=== PATIENT | male | born 1950 | race Caucasian/White ===

== ENCOUNTER 2017-10-20 19:12 | Inpatient (IN) | payer MEDICARE, OTHER ==
[~2017-10-20 19:12] MED LIST: ACTONEL PO; CALTTAB5 PO; LEVO.1 PO; PRIN10TA PO; ZITH250T PO
[2017-10-20 19:24] VITALS: BP 130/87; PULSE 98; RESP 16; TEMP 97.2; O2SAT 96
[2017-10-20 22:00] VITALS: BP 98/64; PULSE 156; RESP 23; O2SAT 97
[2017-10-20] MEDS ORDERED: SODIUM CHLOR 0.9% 1000 ML INJ 1,000 ML IV ONE (23:56)
[2017-10-21] VITALS (12 sets, daily range): BP systolic 83–131; BP diastolic 52–83; PULSE 112–154; RESP 16–28; TEMP 97.6–97.8; O2SAT 93–99
[2017-10-21] MEDS ORDERED: LABETALOL HCL 100 MG/20 ML VIAL IV PUSH ONE
[2017-10-21 00:25] LABS: AUTOMATED NEUTROPHIL # 11.8 TH/MM3 (1.8-7.7); BASOPHIL % 0.2 % (0.0-2.0); EOSINOPHIL % 0.2 % (0.0-4.0); HEMATOCRIT 41.5 % (39.0-51.0); HEMOGLOBIN 13.9 GM/DL (13.0-17.0); LYMPH % 7.5 % (9.0-44.0); MEAN CELL VOLUME 93.3 FL (80.0-100.0); MEAN CORPUSCULAR HEMOGLOBIN 31.3 PG (27.0-34.0); MEAN CORPUSCULAR HGB CONC 33.5 % (32.0-36.0); MONO % 5.5 % (0.0-8.0); MONOCYTE # 0.7 TH/MM3 (0-0.9); NEUT % 86.6 % (16.0-70.0); PLATELET COUNT 312 TH/MM3 (150-450); RED BLOOD COUNT 4.45 MIL/MM3 (4.50-5.90); RED CELL DISTRIBUTION WIDTH 15.6 % (11.6-17.2); WHITE BLOOD COUNT 13.6 TH/MM3 (4.0-11.0)
[2017-10-21 00:43] LABS: ALKALINE PHOSPHATASE 123 U/L (45-117); INTERNATIONAL NORMALIZED RATIO 1.4 RATIO; PROTHROMBIN TIME - PATIENT 14.5 SEC (9.8-11.6); TOTAL BILIRUBIN ADULT 1.3 MG/DL (0.2-1.0); TOTAL PROTEIN 7.5 GM/DL (6.4-8.2)
[2017-10-21 00:44] LABS: ALBUMIN 1.8 GM/DL (3.4-5.0); ALT (GPT) 12 U/L (12-78); AST (GOT) 58 U/L (15-37); BICARBONATE 26.9 MEQ/L (21.0-32.0); BLOOD UREA NITROGEN 11 MG/DL (7-18); CHLORIDE 95 MEQ/L (98-107); CREATININE 0.77 MG/DL (0.60-1.30); GLOMERULAR FILTRATION RATE 101 ML/MIN (>89); GLUCOSE,RANDOM 105 MG/DL (74-106); SODIUM (NA) 134 MEQ/L (136-145)
--- NOTE | 2017-10-21 01:17 | PD ---
HPI Chief Complaint: Back/ Neck Pain or Injury Time Seen by Provider: 23:56 Travel History International Travel<30 days: No Contact w/Intl Traveler<30days: No Traveled to known affect area: No History of Present Illness HPI 67-year-old male who lives alone brought in by his sister for evaluation. The patient's friends became concerned because they have not seen him for about 2 weeks. They called PD and he was found in his home. Patient complains of generalized weakness. Patient's sister suspects he has not been taking care of himself properly. His heart rate is noted to be 151 in triage and appears to be A. fib on EKG. He denies history of A. fib. He is not sure if he has had a fever. He has had a nonproductive cough. No chest pain or dyspnea. He does drink alcohol daily, but states he has not had any alcohol in the last 2 weeks. He has a history of thyroid cancer that was treated with thyroidectomy several years ago. No history of DVT or PE. PFSH Past Medical History Cancer: Yes (THYROID) Diabetes: No Glaucoma: No Hepatitis: No Hiatal Hernia: No Hypertension: Yes Thyroid Disease: Yes (THYROID CANCER) Past Surgical History Other Surgery: Yes (THYROIDECTOMY LAST WEEK) Social History Alcohol Use: Yes (BEER 6 PACK DAILY) Tobacco Use: Yes (1 07/18 PPD) Substance Use: No Allergies-Medications (Allergen,Severity, Reaction): Coded Allergies: No Known Allergies (Verified Adverse Reaction, Unknown, 10/20/17) Reported Meds & Prescriptions Reported Meds & Active Scripts Active Reported Synthroid (Levothyroxine Sodium) 100 Mcg Tab 100 Mcg PO DAILY Zithromax Z-John (Azithromycin) 250 Mg Tab 250 Mg PO DIRECTED 5 Days 500 MG (2 TABLETS) PO ON DAY 1, THEN 250 MG (1 TABLET) PO ON DAYS 2 TO 5. Caltrate 600 (Calcium Carbonate) Tab 1 Tab PO BID [Actonel] 150 Mg PO MONTHLY Prinivil (Lisinopril) 10 Mg Tab 10 Mg PO DAILY Review of Systems Except as stated in HPI: all other systems reviewed are Neg Physical Exam Narrative GENERAL: Well-developed, well-nourished, cachectic appearing, awake, alert, no apparent distress. SKIN: Focused skin assessment warm/dry. HEAD: Atraumatic. Normocephalic. EYES: Pupils equal and round. No scleral icterus. No injection or drainage. ENT: No nasal bleeding or discharge. Mucous membranes pink and moist. NECK: Trachea midline. No JVD. CARDIOVASCULAR: Tachycardic, rate 150s, irregularly irregular. RESPIRATORY: No accessory muscle use. Clear to auscultation. Breath sounds equal bilaterally. GASTROINTESTINAL: Abdomen soft, non-tender, nondistended. MUSCULOSKELETAL: No obvious deformities. No clubbing. No cyanosis. No edema. NEUROLOGICAL: Awake and alert. No obvious cranial nerve deficits. Motor grossly within normal limits. Normal speech. PSYCHIATRIC: Appropriate mood and affect; insight and judgment normal. Data Data Last Documented VS Vital Signs Date Time Temp Pulse Resp B/P (MAP) Pulse Ox O2 Delivery O2 Flow Rate FiO2 10/20/17 23:50 160 10/20/17 19:24 97.2 16 130/87 (101) 96 Room Air Orders Orders Sepsis Workup Initiated (10/20/17 ) Complete Blood Count With Diff (10/20/17 23:56) Comprehensive Metabolic Panel (10/20/17 23:56) Prothrombin Time / Inr (Pt) (10/20/17 23:56) Act Partial Throm Time (Ptt) (10/20/17 23:56) Lactic Acid Sepsis Protocol (10/20/17 23:56) Magnesium (Mg) (10/20/17 23:56) Lipase (10/20/17 23:56) Urinalysis - C+S If Indicated (10/20/17 23:56) Influenzae A/B Antigen (10/20/17 23:56) Blood Culture (10/20/17 23:56) Chest, Single Ap (10/20/17 23:56) Ecg Monitoring (10/20/17 23:56) Iv Access Insert/Monitor (10/20/17 23:56) Oximetry (10/20/17 23:56) Sodium Chlor 0.9% 1000 Ml Inj (Ns 1000 M (10/20/17 23:56) Creatine Kinase (Cpk) (10/20/17 23:56) Sodium Chlor 0.9% 1000 Ml Inj (Ns 1000 M (10/21/17 00:00) Labetalol Inj (Trandate Inj) (10/21/17 00:00) Ct Pulmonary Angiogram (10/21/17 ) Ct Abd/Pel W Iv Contrast(Rout) (10/21/17 ) Ceftriaxone Inj (Rocephin Inj) (10/21/17 01:45) Azithromycin Inj (Zithromax Inj) (10/21/17 01:45) Iohexol 350 Inj (Omnipaque 350 Inj) (10/21/17 03:15) Labs Laboratory Tests Test 10/20/17 23:50 White Blood Count 13.6 TH/MM3 Red Blood Count 4.45 MIL/MM3 Hemoglobin 13.9 GM/DL Hematocrit 41.5 % Mean Corpuscular Volume 93.3 FL Mean Corpuscular Hemoglobin 31.3 PG Mean Corpuscular Hemoglobin Concent 33.5 % Red Cell Distribution Width 15.6 % Platelet Count 312 TH/MM3 Mean Platelet Volume 7.0 FL Neutrophils (%) (Auto) 86.6 % Lymphocytes (%) (Auto) 7.5 % Monocytes (%) (Auto) 5.5 % Eosinophils (%) (Auto) 0.2 % Basophils (%) (Auto) 0.2 % Neutrophils # (Auto) 11.8 TH/MM3 Lymphocytes # (Auto) 1.0 TH/MM3 Monocytes # (Auto) 0.7 TH/MM3 Eosinophils # (Auto) 0.0 TH/MM3 Basophils # (Auto) 0.0 TH/MM3 CBC Comment DIFF FINAL Differential Comment Prothrombin Time 14.5 SEC Prothromb Time International Ratio 1.4 RATIO Activated Partial Thromboplast Time 35.0 SEC Blood Urea Nitrogen 11 MG/DL Creatinine 0.77 MG/DL Random Glucose 105 MG/DL Total Protein 7.5 GM/DL Albumin 1.8 GM/DL Calcium Level 9.0 MG/DL Magnesium Level 2.0 MG/DL Alkaline Phosphatase 123 U/L Aspartate Amino Transf (AST/SGOT) 58 U/L Alanine Aminotransferase (ALT/SGPT) 12 U/L Total Bilirubin 1.3 MG/DL Sodium Level 134 MEQ/L Potassium Level 3.4 MEQ/L Chloride Level 95 MEQ/L Carbon Dioxide Level 26.9 MEQ/L Anion Gap 12 MEQ/L Estimat Glomerular Filtration Rate 101 ML/MIN Lactic Acid Level 4.0 mmol/L Total Creatine Kinase 174 U/L Lipase 918 U/L MDM Medical Decision Making Medical Screen Exam Complete: Yes Emergency Medical Condition: Yes Differential Diagnosis Failure to thrive, sepsis, A. fib with RVR, metabolic abnormality, renal insufficiency, PE Narrative Course Vital signs reviewed. CBC is remarkable for WBC 13.6 with 86.6% neutrophils. CMP is essentially unremarkable. Lactic acid is 4.0. Lipase is 918. CT vomiting angiogram: CONCLUSION: 1. Large central right lung mass extending into the mediastinum. 2. Moderate-sized right pleural effusion. 3. Low density right lower lobe pulmonary consolidation indicating "drowned lung ". 4. 6 mm left lung nodule. 5. Lung mass extends into the subcarinal region. Enlarged right paratracheal lymph node. 6. No evidence of pulmonary embolus. CT abdomen pelvis: CONCLUSION: 1. Findings highly suspicious for metastatic malignancy in the abdomen involving the liver, pancreas, and adrenal glands. Liver masses appear minimal to CT-guided biopsy. 2. Small moderate free fluid in the pelvis. 3. Nonspecific heterogeneous appearance of the prostate with multiple areas of decreased enhancement. 4. Diffuse atherosclerotic disease with abdominal aortic aneurysm and aortoiliac endograft. Fem-fem arterial bypass graft. The fem-fem graft is not opacified. Left common iliac and external iliac arteries also do not opacify. Patient was made aware of all findings. He is resting comfortably. He was given IV Rocephin and IV azithromycin. He will be admitted for further treatment and evaluation. Case discussed with hospitalist Dr. Ba who will admit the patient to her service. Diagnosis Primary Impression: Metastatic disease Additional Impressions: Pleural effusion Generalized weakness Admitting Information Admitting Physician Requests: Admit Joseph Rolon MD Oct 21, 2017 01:17
--- NOTE | 2017-10-21 01:21 | RADRPT ---
EXAM DATE/TIME: 10/21/2017 00:18 [facility] COMPARISON: No previous studies available for comparison. INDICATIONS : Back pain. MEDICAL HISTORY : None. SURGICAL HISTORY : None. ENCOUNTER: Initial ACUITY: 1 day PAIN SCORE: 0/10 LOCATION: Bilateral chest FINDINGS: Single AP view of the chest. Moderate size right pleural effusion. Right lower lung atelectasis versu s consolidation. Left lung clear. Cardiac mediastinal silhouette within normal limits. No evidence of pneumothorax. Multiple old posterior left sided rib fractures. CONCLUSION: Moderate-sized right pleural effusion and right lower lung atelectasis versus consolidation. Efren Farnsworth MD on October 21, 2017 at 1:18 Board Certified Radiologist. This report was verified electronically.
[2017-10-21] MEDS ORDERED: cefTRIAXone INJ 1,000 MG in SODIUM CHLORIDE 0.9% INJ 100 ML IV ONE (01:45)
[2017-10-21] MEDS ORDERED: AZITHROMYCIN INJ 500 MG in SODIUM CHLOR 0.9% 250 ML INJ 250 ML IV ONE (01:45)
[2017-10-21] MEDS ORDERED: IOHEXOL 350 MG/ML 10 ML VIAL (for RAD DIAG) IVCONTRAST ONE (03:15)
--- NOTE | 2017-10-21 03:33 | RADRPT ---
EXAM DATE/TIME: 10/21/2017 02:52 [facility] COMPARISON: No previous studies available for comparison. INDICATIONS : Back pain. IV CONTRAST: 100 cc Omnipaque 350 (iohexol) IV ; Cumulative dose for multiple exams. RADIATION DOSE: 8.30 CTDIvol (mGy) MEDICAL HISTORY : Carcinoma, thyroid. SURGICAL HISTORY : None. ENCOUNTER: Initial ACUITY: 1 day PAIN SCALE: 5/10 LOCATION: Parasp[facility] TECHNIQUE: Volumetric scanning of the chest was performed using a pulmonary embolism protocol MIP images were re constructed. Using automated exposure control and adjustment of the mA and/or kV according to patien t size, radiation dose was kept as low as reasonably achievable to obtain optimal diagnostic quality images. DICOM format image data is available electronically for review and comparison. Follow-up recommendations for detected pulmonary nodules are based at a minimum on nodule size and pa tient risk factors according to Fleischner Society Guidelines. FINDINGS: PULMONARY ARTERIES: No filling defects are seen in the pulmonary arteries through the segmental level. LUNGS: Large central/right hilar lung mass measuring approximately 9.4 x 6.3 cm. There is cut off of the rig ht lower lobe bronchus. Low-density right lower lobe pulmonary consolidation or "drowned lung". The m ass abuts the right border of the left atrium and abuts the esophagus. It also abuts the anterior mar gin of the descending thoracic aorta. 6 mm nodular density in the left upper lobe on image #45. PLEURAE: Moderate-sized right pleural effusion. MEDIASTINUM: Right hilar mass extends into the subcarinal region. 2.6 cm right paratracheal lymph node. 2.1 cm pre vascular lymph node with central calcifications. Aortic diameter are within normal limits. MUSCULOSKELETAL: Multiple old left-sided rib fractures. MISCELLANEOUS: Nonspecific heterogeneity of the visualized portion of the left lobe of the liver. Splenic calcified granulomas. CONCLUSION: 1. Large central right lung mass extending into the mediastinum. 2. Moderate-sized right pleural effusion. 3. Low density right lower lobe pulmonary consolidation indicating "drowned lung". 4. 6 mm left lung nodule. 5. Lung mass extends into the subcarinal region. Enlarged right paratracheal lymph node. 6. No evidence of pulmonary embolus. Efren Farnsworth MD on October 21, 2017 at 3:24 Board Certified Radiologist. This report was verified electronically.
--- NOTE | 2017-10-21 03:55 | RADRPT ---
EXAM DATE/TIME: 10/21/2017 02:52 [facility] COMPARISON: No previous studies available for comparison. INDICATIONS : Back pain. IV CONTRAST: 100 cc Omnipaque 350 (iohexol) IV ; Cumulative dose for multiple exams. ORAL CONTRAST: No oral contrast ingested. RADIATION DOSE: 10.69 CTDIvol (mGy) MEDICAL HISTORY : Carcinoma, thyroid. SURGICAL HISTORY : None. ENCOUNTER: Initial ACUITY: 1 day PAIN SCALE: 5/10 LOCATION: Paraspinal TECHNIQUE: Volumetric scanning of the abdomen and pelvis was performed. Using automated exposure control and ad justment of the mA and/or kV according to patient size, radiation dose was kept as low as reasonably achievable to obtain optimal diagnostic quality images. DICOM format image data is available electro nically for review and comparison. FINDINGS: LOWER LUNGS: Chest abnormalities fully described on chest CT report. LIVER: Multiple peripheral enhancing solid mass is identified in the liver the largest is in the lateral seg ment left lobe measuring 4.8 cm. Findings are highly suspicious for metastatic neoplasm. SPLEEN: Multiple calcified granulomas. PANCREAS: Multiple scattered low density masses with peripheral enhancement in the pancreas. Similar appearance to the liver masses. Largest is seen in the body measuring 3.7 cm. Findings are also suspicious for metastatic neoplasm. KIDNEYS: 2 cm cyst in the lower pole of the right kidney. Kidneys otherwise within normal limits. ADRENAL GLANDS: Bilateral low density adrenal mass is measuring 3.5 cm on the left and 4 cm on the right. Suspicious for metastatic malignancy. VASCULAR: Distal abdominal aortic aneurysm. Aorto iliac endograft is in place left common iliac and external il iac arteries do not opacify. Profundofemoral artery on the left fills via collaterals. Diffuse athero sclerotic disease. Fem-fem arterial bypass graft noted. It does not opacify. BOWEL/MESENTERY: Multiple colonic diverticula. No evidence of bowel dilatation. Small amount of free fluid in the pelv is. Appendix not identified. ABDOMINAL WALL: Within normal limits. RETROPERITONEUM: There is no lymphadenopathy. BLADDER: No wall thickening or mass. REPRODUCTIVE: Heterogeneous prostate with large areas of decreased enhancement. INGUINAL: There is no lymphadenopathy or hernia. MUSCULOSKELETAL: Within normal limits for patient age. CONCLUSION: 1. Findings highly suspicious for metastatic malignancy in the abdomen involving the liver, pancreas, and adrenal glands. Liver masses appear minimal to CT-guided biopsy. 2. Small moderate free fluid in the pelvis. 3. Nonspecific heterogeneous appearance of the prostate with multiple areas of decreased enhancement. 4. Diffuse atherosclerotic disease with abdominal aortic aneurysm and aortoiliac endograft. Fem-fem a rterial bypass graft. The fem-fem graft is not opacified. Left common iliac and external iliac arteri es also do not opacify. Efren Farnsworth MD on October 21, 2017 at 3:45 Board Certified Radiologist. This report was verified electronically.
[2017-10-21] MEDS ORDERED: ONDANSETRON HCL 4 MG/2 ML VIAL IVP PRN (04:15)
[2017-10-21] MEDS ORDERED: MAGNESIUM HYDROXIDE SUSP 30 ML CUP PO PRN (04:15)
[2017-10-21] MEDS ORDERED: SODIUM CHLORIDE 0.9% FLUSH 10 ML FLUSH IV FLUSH PRN (04:15)
[2017-10-21] MEDS ORDERED: BISACODYL 10 MG SUPP RECTAL PRN (04:15)
[2017-10-21] MEDS ORDERED: RESP: ALBUTEROL 2.5 MG/IPRATROPIUM 0.5 MG NEB (PRN) NEB (04:15)
[2017-10-21] MEDS ORDERED: ACETAMINOPHEN 325 MG TAB PO PRN (04:15)
[2017-10-21] MEDS ORDERED: SENNOSIDES 8.6 MG TAB PO PRN (04:15)
[2017-10-21] MEDS ORDERED: LACTULOSE SYRUP 20 GM/30 ML CUP PO PRN (04:15)
[2017-10-21] MEDS ORDERED: MORPHINE SULFATE 2 MG/ML SYRINGE IV PUSH PRN (04:15)
[2017-10-21] MEDS ORDERED: LORazepam 1 MG TAB PO PRN (04:45)
[2017-10-21] MEDS ORDERED: FLUMAZENIL 0.5 MG/5 ML VIAL IV PUSH PRN (04:45)
[2017-10-21] MEDS ORDERED: LORazepam 2 MG/ML VIAL IV PUSH PRN ×4 (04:45)
[2017-10-21] MEDS ORDERED: LORazepam 2 MG TAB PO PRN (04:45)
[2017-10-21] MEDS ORDERED: HALOPERIDOL LACTATE 5 MG/ML AMP IM PRN (04:45)
--- NOTE | 2017-10-21 04:56 | HHI.HP ---
HPI Service [facility] Primary Care Physician Charly Vick, DO Admission Diagnosis Metastatic disease, pleural effusion, generalized weakness Diagnoses: (1) Lung mass Diagnosis: Principal (2) Pleural effusion Diagnosis: Principal (3) PNA (pneumonia) Diagnosis: Principal (4) Lactic acidosis Diagnosis: Principal Travel History International Travel<30 Days: No Contact w/Intl Traveler <30 Da: No Traveled to Known Affected Are: No History of Present Illness This is a 67-year-old male with a PMH of Thyroid CA, Alcohol Abuse and Tobacco Abuse who was brought to the ER by EMS for weakness. Per patient, he's had difficulty "getting around" over the last 1-2 wks and states his friends got worried and called 911. Denies fever, chills, chest pain or SOB. On arrival, BP 126/85, HR 96, O2 sat 96% on RA, Temp 100.0. WBC 13.6. Chemistry essentially unremarkable. Lactic Acid 4.0. Lipase 918. INR 1.4. CXR moderate size right pleural effusion and right lower lung atelectasis versus consolidation. CTA Pulm with large central right lung mass extending into the mediastinum, moderate right sided pleural effusion, low density right lower lobe pulmonary consolidation, 6 mm left lung nodule, enlarged right paratracheal lymph nodes, no PE. CT Abdomen/Pelvis with findings highly suspicious for metastatic malignancy in the abdomen involving the liver, pancreas and adrenal glands. Pt made aware of findings, denies known h/o cancer besides Thyroid. S/p Rocephin/Zithro in ER. Review of Systems Except as stated in HPI: all other systems reviewed are Neg ROS: 14 point review of systems otherwise negative. Past Family Social History Past Medical History PMH: Thyroid CA, Alcohol Abuse and Tobacco Abuse Past Surgical History PAST SURGICAL HISTORY: Thyroidectomy Allergies: Coded Allergies: No Known Allergies (Verified Allergy, Unknown, 10/21/17) Family History PAST FAMILY HISTORY: Reviewed. No h/o DM or CAD Social History PAST SOCIAL HISTORY: Drinks 6 beers per day. Smokes 1.5 ppd. Negative for drugs. Physical Exam Vital Signs Vital Signs Date Time Temp Pulse Resp B/P (MAP) Pulse Ox O2 Delivery O2 Flow Rate FiO2 10/20/17 23:50 160 10/20/17 19:24 97.2 98 16 130/87 (101) 96 Room Air Physical Exam PE: GENERAL: Middle-aged, thin, chronically ill appearing male in no acute distress. Looks significantly older than stated age. HEENT: PERRLA, EOMI. No scleral icterus or conjunctival pallor. No lid lag or facial droop. CARDIOVASCULAR: Regular rate and rhythm. No obvious murmurs to auscultation. No chest tenderness to palpation. RESPIRATORY: No obvious rhonchi or wheezing. Clear to auscultation. Breath sounds diminished on right. GASTROINTESTINAL: Abdomen soft, non-tender, nondistended. BS normal. MUSCULOSKELETAL: Extremities without clubbing, cyanosis, or edema. No obvious deformities. NEUROLOGICAL: Awake, alert and oriented x4. No focal neurologic deficits. Moving both upper and lower extremities spontaneously. Laboratory Laboratory Tests Test 10/20/17 23:50 White Blood Count 13.6 Red Blood Count 4.45 Hemoglobin 13.9 Hematocrit 41.5 Mean Corpuscular Volume 93.3 Mean Corpuscular Hemoglobin 31.3 Mean Corpuscular Hemoglobin Concent 33.5 Red Cell Distribution Width 15.6 Platelet Count 312 Mean Platelet Volume 7.0 Neutrophils (%) (Auto) 86.6 Lymphocytes (%) (Auto) 7.5 Monocytes (%) (Auto) 5.5 Eosinophils (%) (Auto) 0.2 Basophils (%) (Auto) 0.2 Neutrophils # (Auto) 11.8 Lymphocytes # (Auto) 1.0 Monocytes # (Auto) 0.7 Eosinophils # (Auto) 0.0 Basophils # (Auto) 0.0 CBC Comment DIFF FINAL Differential Comment Prothrombin Time 14.5 Prothromb Time International Ratio 1.4 Activated Partial Thromboplast Time 35.0 Blood Urea Nitrogen 11 Creatinine 0.77 Random Glucose 105 Total Protein 7.5 Albumin 1.8 Calcium Level 9.0 Magnesium Level 2.0 Alkaline Phosphatase 123 Aspartate Amino Transf (AST/SGOT) 58 Alanine Aminotransferase (ALT/SGPT) 12 Total Bilirubin 1.3 Sodium Level 134 Potassium Level 3.4 Chloride Level 95 Carbon Dioxide Level 26.9 Anion Gap 12 Estimat Glomerular Filtration Rate 101 Lactic Acid Level 4.0 Total Creatine Kinase 174 Lipase 918 Date/Time Source Procedure Growth Status 10/20/17 23:40 Blood Peripheral Aerobic Blood Culture Pending Received 10/20/17 23:40 Blood Peripheral Anaerobic Blood Culture Pending Received 10/21/17 00:05 Nasal Washing Influenza Types A,B Antigen (SUE) - Final NEGATIVE FOR FLU A AND B ANTIGEN.... Complete Result Diagram: 10/20/17 2350 10/20/17 2350 Caprini VTE Risk Assessment Caprini VTE Risk Assessment: No/Low Risk (score <= 1) Caprini Risk Assessment Model Point Value = 1 Point Value = 2 Point Value = 3 Point Value = 5 Age 41-60 Minor surgery BMI > 25 kg/m2 Swollen legs Varicose veins or History of unexplained or recurrent spontaneous Oral contraceptives or hormone replacement Sepsis (< 1 month) Serious lung disease, including pneumonia (< 1 month) Abnormal pulmonary function Acute myocardial infarction Congestive heart failure (< 1 month) History of inflammatory bowel disease Medical patient at bed rest Age 61-74 Arthroscopic surgery Major open surgery (> 45 min) Laparoscopic surgery (> 45 min) Malignancy Confined to bed (> 72 hours) Immobilizing plaster cast Central venous access Age >= 75 History of VTE Family history of VTE Factor V Leiden Prothrombin [id number] Lupus anticoagulant Anticardiolipin antibodies Elevated serum homocysteine Heparin-induced thrombocytopenia Other congenital or acquired thrombophilia Stroke (< 1 month) Elective arthroplasty Hip, pelvis, or leg fracture Acute spinal cord injury (< 1 month) Prophylaxis Regimen Total Risk Factor Score Risk Level Prophylaxis Regimen 0-1 Low Early ambulation 2 Moderate Order ONE of the following: *Sequential Compression Device (SCD) *Heparin 5000 units SQ BID 3-4 Higher Order ONE of the following medications: *Heparin 5000 units SQ TID *Enoxaparin/Lovenox 40 mg SQ daily (WT < 150 kg, CrCl > 30 mL/min) *Enoxaparin/Lovenox 30 mg SQ daily (WT < 150 kg, CrCl > 10-29 mL/min) *Enoxaparin/Lovenox 30 mg SQ BID (WT < 150 kg, CrCl > 30 mL/min) AND/OR *Sequential Compression Device (SCD) 5 or more Highest Order ONE of the following medications: *Heparin 5000 units SQ TID (Preferred with Epidurals) *Enoxaparin/Lovenox 40 mg SQ daily (WT < 150 kg, CrCl > 30 mL/min) *Enoxaparin/Lovenox 30 mg SQ daily (WT < 150 kg, CrCl > 10-29 mL/min) *Enoxaparin/Lovenox 30 mg SQ BID (WT < 150 kg, CrCl > 30 mL/min) AND *Sequential Compression Device (SCD) Assessment and Plan Problem List: (1) Lung mass ICD Code: R91.8 - Other nonspecific abnormal finding of lung field (2) PNA (pneumonia) ICD Code: J18.9 - Pneumonia, unspecified organism (3) Pleural effusion ICD Code: J90 - Pleural effusion, not elsewhere classified (4) Lactic acidosis ICD Code: E87.2 - Acidosis Assessment and Plan A/P: 1. Lung Mass: CTA Pulm w/ large central right lung mass extending to mediastinum w/ associated lymphadenopathy, images reviewed by me. CT Abd/ Pelvis w/ extensive metastatic disease to liver, pancreas and adrenal glands, images reviewed by me. +tobacco abuse. Consult Oncology for further evaluation. Will obtain MRI Brain to eval for possible [employer] mets. Consult Pulmonology for eval/bronchoscopy. Pt made aware of findings, he understands and wishes to proceed w/ further treatment/intervention. 2. Pleural Effusion: moderate right-sided pleural effusion on CTA Pulm, consult Pulmonology/IR for thoracentesis. O2 sat normal, will continue to monitor. 3. PNA: CXR w/ RLL consolidation, also seen on CTA Pulm, images reviewed by me. S/p Rocephin/Zithro in ER, will continue w/ IV Abx, DuoNeb prn. 4. Lactic Acidosis: Lactate 4.0, likely secondary to infection/early sepsis. Follow up cultures, IVF for hydration, repeat Lactic Acid 5. Tobacco Abuse: Pt counselled. Ativan/NicoDerm prn if needed. 6. DVT Prophylaxis: SCD/Teds. 7. Social work for d/c planning as needed. 8. Case discussed w/ ER physician at length, labs/records/imaging reviewed by me Physician Certification 2 Midnight Certification Type: Admission for Inpatient Services Order for Inpatient Services The services are ordered in accordance with Medicare regulations or non- Medicare payer requirements, as applicable. In the case of services not specified as inpatient-only, they are appropriately provided as inpatient services in accordance with the 2-midnight benchmark. Estimated LOS (days): 2 days is the estimated time the patient will need to remain in the hospital, assuming treatment plan goals are met and no additional complications. Post-Hospital Plan: Not yet determined Latanya Ba MD Oct 21, 2017 04:56
[2017-10-21] MEDS: SODIUM CHLOR 0.9% 1000 ML INJ 1,000 ML IV SCH ×3 (07:25→23:55)
[2017-10-21] MEDS ORDERED: GADODIAMIDE PF 287 MG/ML 5 ML VIAL (for RAD MRI) IVCONTRAST ONE (08:48)
[2017-10-21] MEDS: SODIUM CHLORIDE 0.9% FLUSH 10 ML FLUSH IV FLUSH SCH ×2 (09:00→21:00)
--- NOTE | 2017-10-21 09:19 | RADRPT ---
EXAM DATE/TIME: 10/21/2017 08:39 [place] COMPARISON: No previous studies available for comparison. INDICATIONS : Mass. CONTRAST: 15 cc Omniscan (gadodiamide) IV MEDICAL HISTORY : Hypertension. Chronic obstructive pulmonary disease. Carcinoma, thyroid. SURGICAL HISTORY : Thyroidectomy. Abdominal aortic aneurysm repair. ENCOUNTER: Initial ACUITY: 1 day PAIN SCORE: 0/10 LOCATION: cranial TECHNIQUE: Multiplanar, multisequence MRI of the brain was performed both prior to and following the administrat ion of paramagnetic contrast. FINDINGS: CEREBRUM: There are multiple well-circumscribed T2 bright rim enhancing lesions identified within the white mat ter of the supratentorial brain. These are seen within the left and right temporal lobes, the bilater al parietal-occipital region, left external capsule left corpus callosum in the right frontal lobe. T he majority of these lesions demonstrate a thin rim of decreased T2 signal. The capsules demonstrate mildly restricted diffusion and uniform thin enhancement. There is significant adjacent white matter edema identified adjacent to these lesions and most significantly within the left temporal lobe. The largest lesion within the left temporal lobe measures 3.1 cm. There is effacement of the sulci second mikhail to the white matter edema identified within the left temporal lobe. The ventricles maintain estelle l shape without evidence of effacement. No evidence of midline shift. POSTERIOR FOSSA: The cerebellum and brainstem are intact. The 4th ventricle is midline. The cerebellopontine angle is unremarkable. The cerebellar tonsils are normal in position. EXTRACRANIAL: The visualized portions of the orbits and paranasal sinuses are unremarkable. CONCLUSION: Multiple thin-walled rim enhancing cystic lesions identified within the white matter as described abo ve. Given the appearance of these lesions this favors infectious process such as multiple cerebral ab scesses, neurocysticercosis or lymphoma versus toxoplasma in the setting of immunocompromise patient. Additional differential diagnosis includes multiple glioblastomas or areas of tumefactive demyelinat ion.. Ely Golden MD on October 21, 2017 at 9:03 Board Certified Radiologist. This report was verified electronically.
[2017-10-21] MEDS: MULTIVITAMINS/MINERALS THERAPEUTIC TAB PO SCH (09:21)
[2017-10-21] MEDS: THIAMINE HCL 100 MG TAB PO SCH (09:21)
[2017-10-21] MEDS: DOCUSATE SODIUM 50 MG/SENNA 8.6 MG TAB PO SCH ×2 (09:21→21:00)
[2017-10-21] MEDS: FOLIC ACID 1 MG TAB PO SCH (09:22)
[2017-10-21 09:58] LABS: BILIRUBIN, URINE NEG (NEG); BLOOD, URINE NEG (NEG); GLUCOSE,URINE NEG (NEG); KETONE, URINE 10 mg/dL (NEG); MUCUS URINE FEW /lpf (OCC); NITRITE,URINE NEG (NEG); PH, URINE 6.5 (5.0-8.5); URINE COLOR YELLOW (YELLW/STRAW); URINE LEUKOCYTE ESTERASE NEG (NEG)
--- NOTE | 2017-10-21 13:26 | MB ---
cc: Tyler Daigle MD DATE: 10/21/2017 HISTORY OF PRESENT ILLNESS: Mr. Blankenship is a 67-year-old white male who was brought in by EMS after they were called by friends who were worried about his weakness and a gradual decline over the last few weeks. The patient smokes heavily and apparently drinks up to 6 beers a day. Lives alone, was years ago. On presentation, he was noted to be cachectic, weak, somewhat short of breath, although saturations are reasonable, even on room air and a number of studies were initiated. His white count was 13,000. His hemoglobin was 13. BUN and creatinine were normal. Sodium was slightly low at 134 and his liver functions were elevated, possibly due to underlying liver disease. Albumin also low at 1.8. Lipase was 918. The patient had a chest x-ray which suggested a right pleural effusion and a right perihilar consolidation, so a CT scan was done which reveals a large central lung mass extending into the mediastinum with a right pleural effusion and a 6 mm left lower lung nodule. There is also subcarinal and paratracheal adenopathy. Certainly, highly suspicious for malignancy. Abdominal CT was also done, which revealed signs consistent with metastatic disease involving the liver, pancreas and adrenal glands. Liver masses are amenable to CT guided biopsy. There is also free fluid in the pelvis. Also, has extensive atherosclerotic disease noted with an aortic aneurysm and an endograft noted. The patient is an extremely poor historian, could not recall who his doctors are and I suspect he has been receiving regular medical care. I do have a record from 2008, at which time he developed and presented with medullary carcinoma. That was managed surgically. Whether there has been any recurrence of that up to this point, I do not know, and the patient cannot tell me. ALLERGIES: NO ALLERGIES ARE RECORDED. PAST MEDICAL HISTORY: Prior history, at least dating back to the 2008 note, hypertension, osteoporosis and the medullary carcinoma. FAMILY HISTORY: Recorded there. Father of Hodgkin disease. Mother with hypertension and some type of thyroid disease. He does have 4 siblings and he says he expects one of his sisters who lives locally to come in later. CURRENT MEDICATIONS: Reviewed in the EMR. MEDICATIONS AT HOME: Apparently, a thyroid replacement and Prinivil, whether he was taking that actively or not. SOCIAL HISTORY: Lives alone, smokes heavily and drinks beer excessively. PHYSICAL EXAMINATION: GENERAL: This is a chronically ill, weak-appearing gentleman who seems a little confused, although pleasant, tries to respond to questions, but memory for specifics is very poor. VITAL SIGNS: His pulse is 110. His blood pressure is 100/60. O2 saturation on 2 liters is 97%. HEENT: Sclerae pale, anicteric. Mucous membranes are dry. NECK: Veins are flat. CHEST: Some very minimal scattered congestion, no wheezing. HEART: Irregular rhythm. No harsh murmur. ABDOMEN: Soft but fullness in the right upper quadrant. No rebound or pain. EXTREMITIES: No peripheral edema or cyanosis. DIAGNOSTIC STUDIES: Various studies are reviewed including those noted above. He also had an MRI of his brain, which is abnormal, revealing multiple cystic lesions. DISCUSSION: Mr. Blankenship presents with what appears to be extensive metastatic malignancy, possibly of pulmonary origin in light of his prior smoking history and the CT of his chest. Obviously, a definitive diagnosis needs to be established and pleural effusion could be drained. Liver biopsy would be probably the next step and although lung biopsy would certainly be a reasonable alternative, I would suggest pursuing that only if the fluid and liver biopsies were not definitive. Oncology has been consulted also to see whether or not this might be related to the previous thyroid cancer. In light of the heavy smoking history, I will place the patient on aerosol therapy. Other than that, further diagnostic and/or therapeutic intervention will depend on the results of these initial diagnostic studies. MD UNIQUE Gil/NEDA , 12:44 PM , 01:24 PM
--- NOTE | 2017-10-21 15:26 | MB ---
cc: Armida Sims MD,Latanya CAM DATE: 10/21/2017 REFERRING PHYSICIAN: Dr. Latanya Ba. CHIEF COMPLAINT: Dr. Ba requested consultation for Mr. Blankenship with a suspected malignancy and new lung mass. HISTORY OF PRESENT ILLNESS: Mr. Blankenship is a 67-year-old man well known patient to my partner, Dr. Efrem Odell from a consultation back on 11/25/2008. Mr. Blankenship is originally from [facility]. He is with no children. He reports his sister lives down the block. He does not remember sister's number present. Her name is Bharati Blankenship. He names her as his healthcare surrogate. Mr. Blankenship has a history of medullary thyroid cancer. He presented with a palpable nodule in the left thyroid. He underwent 2 procedures, the first surgical procedure 09/03/[address] Steen. A 2.5 cm medullary carcinoma of the thyroid with lymphovascular invasion was noted. He underwent a second surgery on 11/05/2008 with removal of the right side of the thyroid, which revealed only chronic inflammation. Right neck dissection was performed. A total of 2 lymph nodes were removed and were negative. He had a second surgery on 11/06/2008. He had resection of the right thyroid and a left neck dissection. 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 The size of a metastasis was 2.2 cm. Additional heidi tissue in the left neck was 3 lymph nodes that were negative. The right neck excision shows 0/2 lymph node that were negative. In summary, he had a pathologic T2 N1 M0 medullary carcinoma of the thyroid definitive surgery by 10/2008. He had elevated calcitonin and CEA, which is concerning. Mr. Blankenship is unable to provide much history. He reports that he was doing well until about a week prior. He started to get weak. Denies any specific symptom. He was very tired at the time of the consultation. There was a report of being found down. He reports that he was in his bed when Evac was called by his neighbor. He denies any fevers, chills or night sweats. He has a nonproductive cough. He does not complain of anything specifically. The rest of his review of systems is negative. He is unable to comment on his weight or appetite. PAST MEDICAL HISTORY: Medullary thyroid cancer. PAST SURGICAL HISTORY: Thyroid surgery and neck dissection. FAMILY HISTORY: Father of some cancer, is not sure of the details, but age 62. Mother in her 80s. SOCIAL HISTORY: He drinks a 6 pack daily. He quit smoking 2 weeks ago. He smoked a pack and a half per day. ALLERGIES: NO KNOWN DRUG ALLERGIES. MEDICATIONS: From home include: 1. Synthroid. 2. Zithromax. 3. Caltrate. 4. Actonel. 5. Prinivil. PHYSICAL EXAMINATION: VITAL SIGNS: Temperature 97.2, heart rate 116, respiratory rate 20, blood pressure 109/74, saturation 97% on 2 liter nasal cannula. GENERAL: Mr. Blankenship is a cachectic, elderly man who looks older than his stated age. He looks tired and worn. HEENT: His pupils are round, reactive to light and accommodation. Oropharynx is dry. He is unshaven. NECK: Supple. LUNGS: Clear. CARDIOVASCULAR: Reveals tachycardia. ABDOMEN: Flat, benign. EXTREMITIES: No edema. He moves all 4 extremities. He has clubbing of fingers of both hands. LABORATORY DATA: Significant for a white blood cell count of 13.6; hemoglobin 13.9; platelet count of 312,000. Lipase is elevated. Albumin is decreased at 1.8. Lactic acid is 3.1. Sodium 134. Potassium 3.4 ASSESSMENT AND PLAN: Mr. Blankenship is a 67-year-old man with a history of medullary thyroid cancer that was resected in 2008. He was seen by Dr. Odell but has had no followup. He has high risk of recurrence in light of the elevated calcitonin and CEA. He presents with generalized weakness coming on over a short period of time. He was found in bed and comes in with evidence of dehydration. He has generalized weakness. His lipase is elevated. We will check a TSH. He is not clear when he was in bed if he was taking his thyroid medication. We need a diagnostic evaluation. He had a CT angiogram that reveals a large right lung mass extending into the mediastinum. There is moderate sized right-sided pleural effusion and low density right lower lobe pulmonary consolidation. There is a 6 mm left lung nodule. The lung mass extends into the subcarinal region. There is enlarged right paratracheal lymph node and no evidence of pulmonary embolism. His brain MRI shows multiple thin walled rim enhancing cystic lesions. This appearance could be infectious, multiple cerebral abscess, neurocysticercosis or other. In light of the lung lesion, I am more inclined to suspect that this is metastatic disease. A CT of the abdomen shows a highly suspicious metastatic malignancy in the abdomen involving the liver, pancreas, and adrenal gland. I discussed with Mr. Blankenship about the above findings. He appears to have widely metastatic disease including HEEL SPRAYER FIRST lesion. He is disinterested and too tired to talk. He is able to report that he wants his sister to be his healthcare surrogate but has no way of contacting her now. junior brand manager will be consulted to assist in this matter. It is important that Mr. Blankenship establish a healthcare surrogate given his performance status at present is widely metastatic disease and the HEEL SPRAYER FIRST lesions. He agrees that he would benefit from having a sister along to help him make decisions. His performance status is quite poor. We will proceed with a thoracentesis to obtain a diagnosis. This is suspected to be a second primary rather than metastatic disease from his medullary thyroid cancer. He is too weak to consider systemic treatments unless a targeted agent could be offered. We will proceed with diagnostic thoracentesis and review of cytology, cell block, and see if we can check PD-L1 testing on the results. Mr. Díaz questions were answered to his satisfaction. He has no additional questions at present. MD MAGALY Aguilar/NEDA , 02:42 PM , 03:25 PM
--- NOTE | 2017-10-21 17:20 | EKG ---
Date Performed: 10/20/2017 Time Performed: 23:43:45 PTAGE: 67 years EKG: ATRIAL FIBRILLATION WITH RAPID VENTRICULAR RESPONSE WITH ONE VENTRICULAR ECTOPIC BEAT POOR INITIAL ANTERIOR FORCES V1 AND V2 NONSPECIFIC ST-T CHANGE ABNORMAL ECG PREVIOUS TRACING : 11/05/2008 08.16 DOCTOR: Efrem Cote Interpretating Date/Time 10/21/2017 17:20:01
[2017-10-21] MEDS: RESP: ALBUTEROL 2.5 MG/IPRATROPIUM 0.5 MG NEB (SCH) INH (20:00)
[2017-10-21] MEDS ORDERED: SODIUM CHLOR 0.9% 1000 ML INJ 1,000 ML IV ONE ×2 (20:30)
[2017-10-22] VITALS (12 sets, daily range): BP systolic 103–113; BP diastolic 66–78; PULSE 71–121; RESP 16–20; TEMP 97.3–98.8; O2SAT 91–100
[2017-10-22] MEDS: POTASSIUM CHLOR 20 MEQ PREMIX 100 ML IV SCH ×5 (01:45→23:42)
[2017-10-22 06:08] LABS: AUTOMATED NEUTROPHIL # 7.1 TH/MM3 (1.8-7.7); BASOPHIL % 0.2 % (0.0-2.0); EOSINOPHIL # 0.1 TH/MM3 (0-0.4); EOSINOPHIL % 0.9 % (0.0-4.0); HEMATOCRIT 32.4 % (39.0-51.0); HEMOGLOBIN 10.9 GM/DL (13.0-17.0); LYMPH % 13.6 % (9.0-44.0); LYMPHOCYTE # 1.2 TH/MM3 (1.0-4.8); MEAN CELL VOLUME 93.3 FL (80.0-100.0); MEAN CORPUSCULAR HEMOGLOBIN 31.4 PG (27.0-34.0); MEAN CORPUSCULAR HGB CONC 33.7 % (32.0-36.0); MONOCYTE # 0.6 TH/MM3 (0-0.9); NEUT % 78.3 % (16.0-70.0); PLATELET COUNT 250 TH/MM3 (150-450); RED BLOOD COUNT 3.48 MIL/MM3 (4.50-5.90); RED CELL DISTRIBUTION WIDTH 15.6 % (11.6-17.2); WHITE BLOOD COUNT 9.1 TH/MM3 (4.0-11.0)
[2017-10-22] MEDS: cefTRIAXone INJ 1,000 MG in SODIUM CHLORIDE 0.9% INJ 100 ML IV SCH (06:34)
[2017-10-22 06:48] LABS: ALBUMIN 1.3 GM/DL (3.4-5.0); ALKALINE PHOSPHATASE 96 U/L (45-117); ALT (GPT) 14 U/L (12-78); AST (GOT) 45 U/L (15-37); BICARBONATE 26.8 MEQ/L (21.0-32.0); BLOOD UREA NITROGEN 8 MG/DL (7-18); CALCIUM 7.8 MG/DL (8.5-10.1); CHLORIDE 105 MEQ/L (98-107); CREATININE 0.46 MG/DL (0.60-1.30); GLOMERULAR FILTRATION RATE 184 ML/MIN (>89); GLUCOSE,RANDOM 88 MG/DL (74-106); SODIUM (NA) 141 MEQ/L (136-145); TOTAL BILIRUBIN ADULT 0.7 MG/DL (0.2-1.0); TOTAL PROTEIN 5.3 GM/DL (6.4-8.2)
[2017-10-22] MEDS: AZITHROMYCIN INJ 500 MG in SODIUM CHLOR 0.9% 250 ML INJ 250 ML IV SCH (07:14)
[2017-10-22] MEDS: RESP: ALBUTEROL 2.5 MG/IPRATROPIUM 0.5 MG NEB (SCH) INH ×2 (07:39→21:17)
[2017-10-22] MEDS: MULTIVITAMINS/MINERALS THERAPEUTIC TAB PO SCH (09:06)
[2017-10-22] MEDS: DOCUSATE SODIUM 50 MG/SENNA 8.6 MG TAB PO SCH ×2 (09:06→21:13)
[2017-10-22] MEDS: FOLIC ACID 1 MG TAB PO SCH (09:06)
[2017-10-22] MEDS: THIAMINE HCL 100 MG TAB PO SCH (09:06)
[2017-10-22] MEDS: SODIUM CHLORIDE 0.9% FLUSH 10 ML FLUSH IV FLUSH SCH ×2 (09:28→21:00)
[2017-10-22] MEDS: PHYTONADIONE 5 MG/SWFI 5 ML ORAL SYR PO SCH (09:28)
[2017-10-22] MEDS ORDERED: cloNIDine HCL 0.1 MG TAB PO PRN (10:15)
[2017-10-22] MEDS ORDERED: LORazepam 2 MG/ML VIAL IV PUSH PRN ×5 (10:15)
[2017-10-22] MEDS ORDERED: SENNOSIDES 8.6 MG TAB PO PRN (10:15)
[2017-10-22] MEDS ORDERED: BISACODYL 10 MG SUPP RECTAL PRN (10:15)
[2017-10-22] MEDS ORDERED: ONDANSETRON HCL 4 MG/2 ML VIAL IVP PRN (10:15)
[2017-10-22] MEDS ORDERED: LORazepam 2 MG TAB PO PRN (10:15)
[2017-10-22] MEDS ORDERED: oxyCODONE/ACETAMINOPHEN 5 MG/325 MG TAB PO PRN (10:15)
[2017-10-22] MEDS ORDERED: HALOPERIDOL LACTATE 5 MG/ML AMP IM PRN (10:15)
[2017-10-22] MEDS ORDERED: MORPHINE SULFATE 2 MG/ML SYRINGE IV PUSH PRN (10:15)
[2017-10-22] MEDS ORDERED: SODIUM CHLORIDE 0.9% FLUSH 10 ML FLUSH IV FLUSH PRN (10:15)
[2017-10-22] MEDS ORDERED: LORazepam 1 MG TAB PO PRN (10:15)
[2017-10-22] MEDS ORDERED: ACETAMINOPHEN 325 MG TAB PO PRN (10:15)
[2017-10-22] MEDS ORDERED: FLUMAZENIL 0.5 MG/5 ML VIAL IV PUSH PRN ×2 (10:15)
[2017-10-22] MEDS ORDERED: MORPHINE SULFATE 4 MG/ML INJ IV PUSH PRN ×2 (10:15)
[2017-10-22] MEDS ORDERED: LACTULOSE SYRUP 20 GM/30 ML CUP PO PRN (10:15)
[2017-10-22] MEDS ORDERED: ONDANSETRON HCL 4 MG/2 ML VIAL IV PUSH PRN (10:15)
[2017-10-22] MEDS ORDERED: METOCLOPRAMIDE HCL 10 MG/2 ML VIAL IV PUSH PRN (10:15)
[2017-10-22] MEDS ORDERED: MAGNESIUM HYDROXIDE SUSP 30 ML CUP PO PRN (10:15)
[2017-10-22] MEDS ORDERED: NALOXONE HCL 0.4 MG/ML AMP IV PUSH PRN (10:15)
[2017-10-22] MEDS: SODIUM CHLOR 0.9% 1000 ML INJ 1,000 ML IV SCH ×2 (10:22→21:16)
--- NOTE | 2017-10-22 10:36 | PD.ONC.PN ---
Subjective Subjective Remarks Afebrile Patient resting in bed in no obvious distress States his breathing is minimally improved At the request of the pt I called and spoke to his sister, Bharati. She reports he has been physically declining over the past 2 months. Reports his home that she went to yesterday is "uninhabitable." Objective Data Date Time Temp Pulse Resp B/P (MAP) Pulse Ox O2 Delivery O2 Flow Rate FiO2 10/22/17 09:21 98.6 119 18 112/78 (89) 99 Nasal Cannula 3.00 10/22/17 08:10 98.1 108 20 108/72 (84) 98 Nasal Cannula 2.00 10/22/17 07:41 98 Nasal Cannula 2.00 10/22/17 07:27 108 19 10/22/17 07:19 98.2 115 19 106/78 (87) 100 Nasal Cannula 3.00 10/22/17 06:37 119 16 113/74 (87) 99 Nasal Cannula 3.00 10/22/17 02:10 121 16 107/76 (86) 99 Nasal Cannula 2.00 10/21/17 21:44 126 22 115/80 (92) 99 Nasal Cannula 3.00 10/21/17 20:09 97.6 142 16 83/52 (62) 99 Nasal Cannula 3.00 10/21/17 19:38 132 28 96/56 (69) 95 Nasal Cannula 2.00 10/21/17 14:00 97.8 132 18 110/71 (84) 96 10/21/17 12:19 116 20 109/74 (86) Room Air 2.00 10/22/17 10/22/17 10/22/17 07:00 15:00 23:00 Intake Total 1650 ml Output Total 500 ml Balance 1150 ml Result Diagram: 10/22/17 0453 10/22/17 0453 Laboratory Results Laboratory Tests Test 10/22/17 04:53 White Blood Count 9.1 TH/MM3 Red Blood Count 3.48 MIL/MM3 Hemoglobin 10.9 GM/DL Hematocrit 32.4 % Mean Corpuscular Volume 93.3 FL Mean Corpuscular Hemoglobin 31.4 PG Mean Corpuscular Hemoglobin Concent 33.7 % Red Cell Distribution Width 15.6 % Platelet Count 250 TH/MM3 Mean Platelet Volume 7.0 FL Neutrophils (%) (Auto) 78.3 % Lymphocytes (%) (Auto) 13.6 % Monocytes (%) (Auto) 7.0 % Eosinophils (%) (Auto) 0.9 % Basophils (%) (Auto) 0.2 % Neutrophils # (Auto) 7.1 TH/MM3 Lymphocytes # (Auto) 1.2 TH/MM3 Monocytes # (Auto) 0.6 TH/MM3 Eosinophils # (Auto) 0.1 TH/MM3 Basophils # (Auto) 0.0 TH/MM3 CBC Comment DIFF FINAL Differential Comment Blood Urea Nitrogen 8 MG/DL Creatinine 0.46 MG/DL Random Glucose 88 MG/DL Total Protein 5.3 GM/DL Albumin 1.3 GM/DL Calcium Level 7.8 MG/DL Alkaline Phosphatase 96 U/L Aspartate Amino Transf (AST/SGOT) 45 U/L Alanine Aminotransferase (ALT/SGPT) 14 U/L Total Bilirubin 0.7 MG/DL Sodium Level 141 MEQ/L Potassium Level 3.1 MEQ/L Chloride Level 105 MEQ/L Carbon Dioxide Level 26.8 MEQ/L Anion Gap 9 MEQ/L Estimat Glomerular Filtration Rate 184 ML/MIN Carcinoembryonic Antigen 2.1 NG/ML Culture Results Microbiology Date/Time Source Procedure Growth Status 10/20/17 23:40 Blood Peripheral Aerobic Blood Culture Pending Received 10/20/17 23:40 Blood Peripheral Anaerobic Blood Culture Pending Received 10/20/17 23:35 Blood Peripheral Aerobic Blood Culture Pending Received 10/20/17 23:35 Blood Peripheral Anaerobic Blood Culture Pending Received 10/21/17 00:05 Nasal Washing Influenza Types A,B Antigen (SUE) - Final NEGATIVE FOR FLU A AND B ANTIGEN.... Complete Administered Medications Medications (Trade) Dose Ordered Sig/[place] Route PRN Reason Start Time Stop Time Status Last Admin Dose Admin Ceftriaxone Sodium 1000 mg/ Sodium Chloride 100 ml @ 200 mls/hr Q24H IV 10/22/17 06:00 10/22/17 06:34 Azithromycin 500 mg/Sodium Chloride 250 ml @ 250 mls/hr Q24H IV 10/22/17 06:00 10/22/17 07:14 Sodium Chloride 1,000 ml @ 100 mls/hr Q10H IV 10/21/17 04:06 10/22/17 10:22 Sodium Chloride (NS Flush) 2 ml BID IV FLUSH 10/21/17 09:00 10/22/17 09:28 Senna/Docusate Sodium (Debra-Colace) 1 tab BID PO 10/21/17 09:00 10/22/17 09:06 Folic Acid (Folate) 1 mg DAILY PO 10/21/17 09:00 10/26/17 08:59 10/22/17 09:06 Thiamine HCl (Vitamin B1) 100 mg DAILY PO 10/21/17 09:00 10/22/17 09:06 Multivitamins/ Minerals Therapeutic (Theragran M Tab) 1 tab DAILY PO 10/21/17 09:00 10/26/17 08:59 10/22/17 09:06 Albuterol/ Ipratropium (Duoneb Neb) 1 ampule BID NEB INH 10/21/17 20:00 10/22/17 07:39 Phytonadione (Mephyton Liq) 5 mg DAILY PO 10/22/17 09:00 10/22/17 09:28 Objective Remarks GENERAL: Cachectic older male resting in bed in no obvious distress SKIN: Warm and dry. HEAD: Normocephalic. EYES: No injection or drainage. NECK: Supple, trachea midline. CARDIOVASCULAR: Regular rate and rhythm without murmurs. RESPIRATORY: On 2 L nasal cannula. Right lung montague diminished GASTROINTESTINAL: Abdomen soft, non-tender, nondistended. EXTREMITIES: No cyanosis, or edema. MUSCULOSKELETAL: Generalized weakness NEUROLOGICAL: No obvious focal deficit. Awake and alert. Assessment/Plan Problem List: (1) Metastatic disease ICD Codes: C79.9 - Secondary malignant neoplasm of unspecified site Status: Acute Plan: --CT abdomen pelvis shows metastatic malignancy involving the liver, pancreas and adrenal glands. 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 (2) Pleural effusion ICD Codes: J90 - Pleural effusion, not elsewhere classified Status: Acute Plan: --Patient likely has second primary lung cancer with mets --Thoracentesis plan for 10/23 (3) Generalized weakness ICD Codes: R53.1 - Weakness Status: Acute Plan: --Consult physical therapy Plan 1. Called and spoke with patient's sister, Freida Blankenship; she is not sure he would be able to go home due to poor living conditions. 2. Physical therapy to evaluate and treat. 3. Therapeutic and diagnostic thoracentesis tomorrow 4. Supportive care Attending Statement The exam, history, and the medical decision-making described in the above note were completed with the assistance of the mid-level provider. I reviewed and agree with the findings presented. I attest that I had a [id number] encounter with the patient on the same day, and personally performed and documented my assessment and findings in the medical record. Pt seen and examined. Commends oncology nurses for his care. Eating. State he is interested in active treatment. Pt was able to contact sister. Pending thoracentesis tomorrow, discussed w/ US. 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 Consult rad onc. Diane Aranda Oct 22, 2017 10:36 Armida Sims MD Oct 22, 2017 18:09
[2017-10-22] MEDS ORDERED: DILTIAZEM HCL 50 MG/10 ML VIAL ONE (12:25)
[2017-10-22] MEDS ORDERED: DILTIAZEM HCL 50 MG/10 ML VIAL IV ONE (12:30)
[2017-10-22] MEDS: DILTIAZEM HCL 60 MG TAB PO SCH ×3 (12:38→23:47)
--- NOTE | 2017-10-22 14:06 | HHI.PR ---
Subjective Remarks This is a 67-year-old male with a PMH of Thyroid CA, Alcohol Abuse and Tobacco Abuse who was brought to the ER by EMS for weakness. Per patient, he's had difficulty "getting around" over the last 1-2 wks and states his friends got worried and called 911. Denies fever, chills, chest pain or SOB. On arrival, BP 126/85, HR 96, O2 sat 96% on RA, Temp 100.0. WBC 13.6. Chemistry essentially unremarkable. Lactic Acid 4.0. Lipase 918. INR 1.4. CXR moderate size right pleural effusion and right lower lung atelectasis versus consolidation. CTA Pulm with large central right lung mass extending into the mediastinum, moderate right sided pleural effusion, low density right lower lobe pulmonary consolidation, 6 mm left lung nodule, enlarged right paratracheal lymph nodes, no PE. CT Abdomen/Pelvis with findings highly suspicious for metastatic malignancy in the abdomen involving the liver, pancreas and adrenal glands. Pt made aware of findings, denies known h/o cancer besides Thyroid. S/p Rocephin/Zithro in ER. 4-8 transferred to [facility] FROM ER HAVING US OF RIGHT CHEST TO SEE IF HAS A PLEURAL EFFUSION NO CURRENT COMPLAINTS DW RN AND PT AND CM NEEDS PT AND OT AM LABS Objective Vitals Vital Signs Date Time Temp Pulse Resp B/P (MAP) Pulse Ox O2 Delivery O2 Flow Rate FiO2 10/22/17 12:37 97.8 107 18 103/66 (78) 98 Nasal Cannula 2.00 10/22/17 11:00 97.7 118 20 112/78 (89) 98 Nasal Cannula 2.00 10/22/17 09:21 98.6 119 18 112/78 (89) 99 Nasal Cannula 3.00 10/22/17 08:10 98.1 108 20 108/72 (84) 98 Nasal Cannula 2.00 10/22/17 07:41 98 Nasal Cannula 2.00 10/22/17 07:27 108 19 10/22/17 07:19 98.2 115 19 106/78 (87) 100 Nasal Cannula 3.00 10/22/17 06:37 119 16 113/74 (87) 99 Nasal Cannula 3.00 10/22/17 02:10 121 16 107/76 (86) 99 Nasal Cannula 2.00 10/21/17 21:44 126 22 115/80 (92) 99 Nasal Cannula 3.00 10/21/17 20:09 97.6 142 16 83/52 (62) 99 Nasal Cannula 3.00 10/21/17 19:38 132 28 96/56 (69) 95 Nasal Cannula 2.00 10/21/17 14:00 97.8 132 18 110/71 (84) 96 I/O 10/21/17 10/21/17 10/21/17 10/22/17 10/22/17 10/22/17 07:00 15:00 23:00 07:00 15:00 23:00 Intake Total 2350 ml 120 ml 1650 ml Output Total 250 ml 500 ml Balance 2350 ml -130 ml 1150 ml Intake Oral 120 ml 300 ml IV Total 2350 ml 1350 ml Output Urine Total 250 ml 500 ml # Voids 1 1 # Bowel Movements 0 Result Diagram: 10/22/17 0453 10/22/17 0453 Other Results Laboratory Tests Test 10/20/17 23:50 10/21/17 05:00 10/21/17 09:32 10/21/17 09:38 White Blood Count 13.6 TH/MM3 Red Blood Count 4.45 MIL/MM3 Hemoglobin 13.9 GM/DL Hematocrit 41.5 % Mean Corpuscular Volume 93.3 FL Mean Corpuscular Hemoglobin 31.3 PG Mean Corpuscular Hemoglobin Concent 33.5 % Red Cell Distribution Width 15.6 % Platelet Count 312 TH/MM3 Mean Platelet Volume 7.0 FL Neutrophils (%) (Auto) 86.6 % Lymphocytes (%) (Auto) 7.5 % Monocytes (%) (Auto) 5.5 % Eosinophils (%) (Auto) 0.2 % Basophils (%) (Auto) 0.2 % Neutrophils # (Auto) 11.8 TH/MM3 Lymphocytes # (Auto) 1.0 TH/MM3 Monocytes # (Auto) 0.7 TH/MM3 Eosinophils # (Auto) 0.0 TH/MM3 Basophils # (Auto) 0.0 TH/MM3 CBC Comment DIFF FINAL Differential Comment Prothrombin Time 14.5 SEC Prothromb Time International Ratio 1.4 RATIO Activated Partial Thromboplast Time 35.0 SEC Blood Urea Nitrogen 11 MG/DL Creatinine 0.77 MG/DL Random Glucose 105 MG/DL Total Protein 7.5 GM/DL Albumin 1.8 GM/DL Calcium Level 9.0 MG/DL Magnesium Level 2.0 MG/DL Alkaline Phosphatase 123 U/L Aspartate Amino Transf (AST/SGOT) 58 U/L Alanine Aminotransferase (ALT/SGPT) 12 U/L Total Bilirubin 1.3 MG/DL Sodium Level 134 MEQ/L Potassium Level 3.4 MEQ/L Chloride Level 95 MEQ/L Carbon Dioxide Level 26.9 MEQ/L Anion Gap 12 MEQ/L Estimat Glomerular Filtration Rate 101 ML/MIN Lactic Acid Level 4.0 mmol/L 3.4 mmol/L 3.1 mmol/L Total Creatine Kinase 174 U/L Lipase 918 U/L Urine Color YELLOW Urine Turbidity CLEAR Urine pH 6.5 Urine Specific [place] GREATER THAN 1.050 Urine Protein 30 mg/dL Urine Glucose (UA) NEG mg/dL Urine Ketones 10 mg/dL Urine Occult Blood NEG Urine Nitrite NEG Urine Bilirubin NEG Urine Urobilinogen 8.0 MG/DL Urine Leukocyte Esterase NEG Urine RBC LESS THAN 1 /hpf Urine WBC LESS THAN 1 /hpf Urine Mucus FEW /lpf Microscopic Urinalysis Comment CATH-CULT NOT IND Test 10/22/17 04:53 White Blood Count 9.1 TH/MM3 Red Blood Count 3.48 MIL/MM3 Hemoglobin 10.9 GM/DL Hematocrit 32.4 % Mean Corpuscular Volume 93.3 FL Mean Corpuscular Hemoglobin 31.4 PG Mean Corpuscular Hemoglobin Concent 33.7 % Red Cell Distribution Width 15.6 % Platelet Count 250 TH/MM3 Mean Platelet Volume 7.0 FL Neutrophils (%) (Auto) 78.3 % Lymphocytes (%) (Auto) 13.6 % Monocytes (%) (Auto) 7.0 % Eosinophils (%) (Auto) 0.9 % Basophils (%) (Auto) 0.2 % Neutrophils # (Auto) 7.1 TH/MM3 Lymphocytes # (Auto) 1.2 TH/MM3 Monocytes # (Auto) 0.6 TH/MM3 Eosinophils # (Auto) 0.1 TH/MM3 Basophils # (Auto) 0.0 TH/MM3 CBC Comment DIFF FINAL Differential Comment Blood Urea Nitrogen 8 MG/DL Creatinine 0.46 MG/DL Random Glucose 88 MG/DL Total Protein 5.3 GM/DL Albumin 1.3 GM/DL Calcium Level 7.8 MG/DL Alkaline Phosphatase 96 U/L Aspartate Amino Transf (AST/SGOT) 45 U/L Alanine Aminotransferase (ALT/SGPT) 14 U/L Total Bilirubin 0.7 MG/DL Sodium Level 141 MEQ/L Potassium Level 3.1 MEQ/L Chloride Level 105 MEQ/L Carbon Dioxide Level 26.8 MEQ/L Anion Gap 9 MEQ/L Estimat Glomerular Filtration Rate 184 ML/MIN Carcinoembryonic Antigen 2.1 NG/ML Imaging Last Impressions CT Angiography 10/21/17 0000 Signed Impressions: Service Date/Time: Saturday, October 21, 2017 02:52 - CONCLUSION: 1. Large central right lung mass extending into the mediastinum. 2. Moderate-sized right pleural effusion. 3. Low density right lower lobe pulmonary consolidation indicating drowned lung. 4. 6 mm left lung nodule. 5. Lung mass extends into the subcarinal region. Enlarged right paratracheal lymph node. 6. No evidence of pulmonary embolus. Efren Farnsworth MD Brain MRI 10/21/17 0000 Signed Impressions: Service Date/Time: Saturday, October 21, 2017 08:39 - CONCLUSION: Multiple thin-walled rim enhancing cystic lesions identified within the white matter as described above. Given the appearance of these lesions this favors infectious process such as multiple cerebral abscesses, neurocysticercosis or lymphoma versus toxoplasma in the setting of immunocompromise patient. Additional differential diagnosis includes multiple glioblastomas or areas of tumefactive demyelination.. Ely Golden MD Abdomen/Pelvis CT 10/21/17 0000 Signed Impressions: Service Date/Time: Saturday, October 21, 2017 02:52 - CONCLUSION: 1. Findings highly suspicious for metastatic malignancy in the abdomen involving the liver , pancreas, and adrenal glands. Liver masses appear minimal to CT-guided biopsy. 2. Small moderate free fluid in the pelvis. 3. Nonspecific heterogeneous appearance of the prostate with multiple areas of decreased enhancement. 4. Diffuse atherosclerotic disease with abdominal aortic aneurysm and aortoiliac endograft. Fem-fem arterial bypass graft. The fem-fem graft is not opacified. Left common iliac and external iliac arteries also do not opacify. Efren Farnsworth MD Chest X-Ray 10/20/17 [id number] Signed Impressions: Service Date/Time: Saturday, October 21, 2017 00:18 - CONCLUSION: Moderate- sized right pleural effusion and right lower lung atelectasis versus consolidation. Efren Farnsworth MD Objective Remarks GENERAL: Awake alert and oriented 3 talkative and cooperative SKIN: Warm and dry. HEAD: Atraumatic. Normocephalic. EYES: Pupils equal and round. No scleral icterus. No injection or drainage. Extraocular muscles intact ENT: No nasal bleeding or discharge. Mucous membranes pink and moist. Tongue is midline NECK: Trachea midline. No JVD. Supple CARDIOVASCULAR: Regular rate and rhythm. S1-S2 no S3 or S4 RESPIRATORY: No accessory muscle use. Clear to auscultation. Breath sounds equal bilaterally. Decreased breath sounds on the right GASTROINTESTINAL: Abdomen soft, non-tender, nondistended. Hepatic and splenic margins not palpable. MUSCULOSKELETAL: Extremities without clubbing, cyanosis, or edema. No obvious deformities. NEUROLOGICAL: Awake and alert. No obvious cranial nerve deficits. Motor grossly within normal limits. 4 out of 5 muscle strength in the arms and legs. Normal speech. PSYCHIATRIC: INAppropriate mood and affect; insight and judgment ABnormal. Medications and IVs Current Medications Sodium Chloride 1,000 ml @ 1,000 mls/hr Q1H ONCE IV Last administered on at 00:37; Start 10/20/17 at 23:56; Stop 10/21/17 at 00:55; Status DC Sodium Chloride 1,000 ml @ 999 mls/hr BOLUS ONCE IV Last administered on at 01:26; Start 10/21/17 at 00:00; Stop 10/21/17 at 01:00; Status DC Labetalol HCl (Trandate Inj) 10 mg ONCE ONCE IV PUSH Last administered on at 00:37; Start 10/21/17 at 00:00; Stop 10/21/17 at 00:01; Status DC Ceftriaxone Sodium 1000 mg/ Sodium Chloride 100 ml @ 200 mls/hr ONCE ONCE IV Last administered on 10/21/17 02:04; Start 10/21/17 at 01:45; Stop 10/21/17 at 02: 14; Status DC Azithromycin 500 mg/Sodium Chloride 250 ml @ 250 mls/hr ONCE ONCE IV Last administered on 10/21/17at 04:05; Start 10/21/17 at 01:45; Stop 10/21/17 at 02:44; Status DC Iohexol (Omnipaque 350 Inj) 100 ml STK-MED ONCE IVCONTRAST Last administered on 10/21/17at 03:15; Start 10/21/17 at 03:15; Stop 10/21/17 at 03:16; Status DC Ceftriaxone Sodium 1000 mg/ Sodium Chloride 100 ml @ 200 mls/hr Q24H IV Last administered on 10/22/17at 06:34; Start 10/22/17 at 06:00 Azithromycin 500 mg/Sodium Chloride 250 ml @ 250 mls/hr Q24H IV Last administered on 10/22/17at 07:14; Start 10/22/17 at 06:00 Albuterol/ Ipratropium (Duoneb Neb) 1 ampule Q4HR NEB PRN NEB SOB/WHEEZING; Start 10/21/17 at 04:15 Sodium Chloride 1,000 ml @ 100 mls/hr Q10H IV Last administered on 10/22/17at 10 :22; Start 10/21/17 at 04:06 Sodium Chloride (NS Flush) 2 ml UNSCH PRN IV FLUSH FLUSH AFTER USING IV ACCESS ; Start 10/21/17 at 04:15; Stop 10/22/17 at 11:15; Status DC Sodium Chloride (NS Flush) 2 ml BID IV FLUSH Last administered on 10/22/17at 09: 28; Start 10/21/17 at 09:00; Stop 10/22/17 at 11:15; Status DC Ondansetron HCl (Zofran Inj) 4 mg Q6H PRN IVP NAUSEA OR VOMITING; Start at 04:15; Stop 10/22/17 at 11:15; Status DC Acetaminophen (Tylenol) 650 mg Q6H PRN PO FEVER/PAIN SCALE 1 TO 2; Start at 04:15; Stop 10/22/17 at 11:25; Status DC Morphine Sulfate (Morphine Inj) 2 mg Q3H PRN IV PUSH Pain 6-10; Start 10/21/17 at 04:15; Stop 10/22/17 at 11:23; Status DC Oxycodone HCl (Roxicodone) 5 mg Q4H PRN PO PAIN SCALE 3 TO 5; Start 10/21/17 at 04:15; Stop 10/22/17 at 11:24; Status DC Senna/Docusate Sodium (Debra-Colace) 1 tab BID PO Last administered on 10/22/17at 09:06; Start 10/21/17 at 09:00; Stop 10/22/17 at 11:15; Status DC Magnesium Hydroxide (Milk Of Magnesia Liq) 30 ml Q12H PRN PO Mild constipation ; Start 10/21/17 at 04:15; Stop 10/22/17 at 11:15; Status DC Sennosides (Senokot) 17.2 mg Q12H PRN PO Moderate constipation; Start 10/21/17 at 04:15; Stop 10/22/17 at 11:15; Status DC Bisacodyl (Dulcolax Supp) 10 mg DAILY PRN RECTAL SEVERE CONSITIPATION; Start at 04:15; Stop 10/22/17 at 11:15; Status DC Lactulose (Lactulose Liq) 30 ml DAILY PRN PO SEVERE CONSITIPATION; Start at 04:15; Stop 10/22/17 at 11:15; Status DC Folic Acid (Folate) 1 mg DAILY PO Last administered on 10/22/17at 09:06; Start at 09:00; Stop 10/22/17 at 11:23; Status DC Thiamine HCl (Vitamin B1) 100 mg DAILY PO Last administered on 10/22/17at 09:06; Start 10/21/17 at 09:00; Stop 10/22/17 at 11:23; Status DC Multivitamins/ Minerals Therapeutic (Theragran M Tab) 1 tab DAILY PO Last administered on 10/22/17at 09:06; Start 10/21/17 at 09:00; Stop 10/22/17 at 11:23; Status DC Flumazenil (Romazicon Inj) 0.2 mg Q1M PRN IV PUSH SEE LABEL COMMENTS; Start 10/21/17 at 04:45; Stop 10/22/17 at 11:15; Status DC Lorazepam (Ativan) 1 mg Q4H PRN PO CIWA 8 - 10; Start 10/21/17 at 04:45; Stop at 11:15; Status DC Lorazepam (Ativan Inj) 1 mg Q4H PRN IV PUSH CIWA 8 - 10; Start 10/21/17 at 04:45 ; Stop 10/22/17 at 11:15; Status DC Lorazepam (Ativan) 2 mg Q2H PRN PO CIWA 11-14; Start 10/21/17 at 04:45; Stop 10/22/17 at 11:15; Status DC Lorazepam (Ativan Inj) 2 mg Q2H PRN IV PUSH CIWA 11-14; Start 10/21/17 at 04:45 ; Stop 10/22/17 at 11:15; Status DC Lorazepam (Ativan Inj) 2 mg Q1H PRN IV PUSH CIWA 15-20; Start 10/21/17 at 04:45 ; Stop 10/22/17 at 11:15; Status DC Lorazepam (Ativan Inj) 2 mg Q15M PRN IV PUSH CIWA > 20; Start 10/21/17 at 04:45 ; Stop 10/22/17 at 11:15; Status DC Haloperidol Lactate (Haldol Inj) 2 mg Q15M PRN IM SEE LABEL COMMENTS; Start 10/21/17 at 04:45; Stop 10/22/17 at 11:15; Status DC Gadodiamide (Omniscan Pf Inj) 15 ml STK-MED ONCE IVCONTRAST Last administered on 10/21/17at 08:48; Start 10/21/17 at 08:48; Stop 10/21/17 at 08:49; Status DC Albuterol/ Ipratropium (Duoneb Neb) 1 ampule BID NEB INH Last administered on 10/22/17at 07:39; Start 10/21/17 at 20:00 Phytonadione (Mephyton Liq) 5 mg DAILY PO Last administered on 10/22/17at 09:28; Start 10/22/17 at 09:00 Sodium Chloride 1,000 ml @ 999 mls/hr BOLUS ONCE IV Last administered on at 20:33; Start 10/21/17 at 20:30; Stop 10/21/17 at 21:30; Status DC Sodium Chloride (NS Flush) 2 ml UNSCH PRN IV FLUSH FLUSH AFTER USING IV ACCESS ; Start 10/22/17 at 10:15 Sodium Chloride (NS Flush) 2 ml BID IV FLUSH ; Start 10/22/17 at 21:00 Folic Acid (Folate) 1 mg DAILY PO ; Start 10/23/17 at 09:00; Stop 10/27/17 at 08: 59 Thiamine HCl (Vitamin B1) 100 mg DAILY PO ; Start 10/23/17 at 09:00 Multivitamins/ Minerals Therapeutic (Theragran M Tab) 1 tab DAILY PO ; Start 10/23/17 at 09:00; Stop 10/27/17 at 08:59 Ondansetron HCl (Zofran Inj) 4 mg Q6H PRN IV PUSH NAUSEA OR VOMITING; Start 10/22/17 at 10:15; Stop 10/22/17 at 11:15; Status DC Clonidine (Catapres) 0.1 mg Q6H PRN PO SEE LABEL COMMENTS; Start 10/22/17 at 10: 15 Flumazenil (Romazicon Inj) 0.2 mg Q1M PRN IV PUSH SEE LABEL COMMENTS; Start 10/22/17 at 10:15; Stop 10/22/17 at 11:15; Status DC Lorazepam (Ativan) 1 mg Q4H PRN PO CIWA 8 - 10; Start 10/22/17 at 10:15 Lorazepam (Ativan Inj) 1 mg Q4H PRN IV PUSH CIWA 8 - 10; Start 10/22/17 at 10:15 Lorazepam (Ativan) 2 mg Q2H PRN PO CIWA 11-14; Start 10/22/17 at 10:15 Lorazepam (Ativan Inj) 2 mg Q2H PRN IV PUSH CIWA 11-14; Start 10/22/17 at 10:15 Lorazepam (Ativan Inj) 2 mg Q1H PRN IV PUSH CIWA 15-20; Start 10/22/17 at 10:15 Lorazepam (Ativan Inj) 2 mg Q15M PRN IV PUSH CIWA > 20; Start 10/22/17 at 10:15 ; Stop 10/22/17 at 11:15; Status DC Haloperidol Lactate (Haldol Inj) 2 mg Q15M PRN IM SEE LABEL COMMENTS; Start 10/22/17 at 10:15 Acetaminophen (Tylenol) 650 mg Q4H PRN PO TEMP > 100.4; Start 10/22/17 at 10:15 Ondansetron HCl (Zofran Inj) 4 mg Q6H PRN IVP NAUSEA OR VOMITING; Start at 10:15 Metoclopramide HCl (Reglan Inj) 5 mg Q6H PRN IV PUSH NAUSEA OR VOMITING; Start 10/22/17 at 10:15 Acetaminophen (Tylenol) 650 mg Q6H PRN PO PAIN SCALE 1 TO 2; Start 10/22/17 at 10:15 Oxycodone/ Acetaminophen (Percocet 5-325 Mg) 1 tab Q6H PRN PO PAIN SCALE 3 TO 5; Start 10/22/17 at 10:15 Oxycodone/ Acetaminophen (Percocet 10-325 Mg) 1 tab Q6H PRN PO PAIN SCALE 6 TO 10; Start 10/22/17 at 10:15 Morphine Sulfate (Morphine Inj) 2 mg Q3H PRN IV PUSH Pain 3-5; if unable to take PO; Start 10/22/17 at 10:15 Morphine Sulfate (Morphine Inj) 4 mg Q3H PRN IV PUSH Pain 6-10;if unable to take PO; Start 10/22/17 at 10:15 Morphine Sulfate (Morphine Inj) 4 mg Q3H PRN IV PUSH BREAKTHROUGH PAIN; Start 10/22/17 at 10:15 Naloxone HCl (Narcan Inj) 0.4 mg UNSCH PRN IV PUSH SEE LABEL COMMENTS; Start at 10:15 Senna/Docusate Sodium (Debra-Colace) 1 tab BID PO ; Start 10/22/17 at 21:00 Magnesium Hydroxide (Milk Of Magnesia Liq) 30 ml Q12H PRN PO Mild constipation ; Start 10/22/17 at 10:15 Sennosides (Senokot) 17.2 mg Q12H PRN PO Moderate constipation; Start 10/22/17 at 10:15 Bisacodyl (Dulcolax Supp) 10 mg DAILY PRN RECTAL SEVERE CONSITIPATION; Start at 10:15 Lactulose (Lactulose Liq) 30 ml DAILY PRN PO SEVERE CONSITIPATION; Start at 10:15 Flumazenil (Romazicon Inj) 0.2 mg Q1M PRN IV PUSH SEE LABEL COMMENTS; Start 10/22/17 at 10:15 Lorazepam (Ativan Inj) 2 mg Q15M PRN IV PUSH CIWA > 20; Start 10/22/17 at 10:15 Diltiazem HCl (Cardizem Inj) 10 mg ONCE ONCE IV Last administered on 10/22/17at 12:30; Start 10/22/17 at 12:30; Stop 10/22/17 at 12:31; Status DC Diltiazem HCl (Cardizem) 60 mg Q6HR PO Last administered on 10/22/17at 12:38; Start 10/22/17 at 12:30 Diltiazem HCl (Cardizem Inj) 50 mg STK-MED ONCE .ROUTE ; Start 10/22/17 at 12:25 ; Stop 10/22/17 at 12:26; Status DC A/P Problem List: (1) Lung mass ICD Code: R91.8 - Other nonspecific abnormal finding of lung field (2) PNA (pneumonia) ICD Code: J18.9 - Pneumonia, unspecified organism (3) Pleural effusion ICD Code: J90 - Pleural effusion, not elsewhere classified (4) Lactic acidosis ICD Code: E87.2 - Acidosis Assessment and Plan 1. Lung Mass: CTA Pulm w/ large central right lung mass extending to mediastinum w/ associated lymphadenopathy, images reviewed by me. CT Abd/ Pelvis w/ extensive metastatic disease to liver, pancreas and adrenal glands, images reviewed by me. +tobacco abuse. Consult Oncology for further evaluation. 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 Consult Pulmonology for eval/bronchoscopy. Pt made aware of findings, he understands and wishes to proceed w/ further treatment/intervention. POSSIBLE BRAIN METS PER SCANS 2. Pleural Effusion: moderate right-sided pleural effusion on CTA Pulm, consult Pulmonology/IR for thoracentesis. O2 sat normal, will continue to monitor. ONCOLOGY CONSULTED 3. PNA: CXR w/ RLL consolidation, also seen on CTA Pulm, images reviewed by me. S/p Rocephin/Zithro in ER, will continue w/ IV Abx, DuoNeb prn. VS LUNG CANCER 4. Lactic Acidosis: Lactate 4.0, likely secondary to infection/early sepsis. Follow up cultures, IVF for hydration, repeat Lactic Acid 5. Tobacco Abuse: Pt counselled. Ativan/NicoDerm prn if needed. 6. DVT Prophylaxis: SCD/Teds. 7. Social work for d/c planning as needed. PT AND OT TO EVAL AND TREAT AM LABS GUARDED PROGNOSIS NEED TISSUE FOR DIAGNOSIS Discharge Planning PENDING CLEARANCE BY ALL Roe Rees DO Oct 22, 2017 14:06
[2017-10-22] MEDS: ACETAMINOPHEN 325 MG TAB PO PRN (23:54)
[2017-10-23] VITALS (16 sets, daily range): BP systolic 90–131; BP diastolic 57–83; PULSE 73–115; RESP 16–22; TEMP 97.2–97.8; O2SAT 93–97
[2017-10-23] MEDS: cefTRIAXone INJ 1,000 MG in SODIUM CHLORIDE 0.9% INJ 100 ML IV SCH (04:50)
[2017-10-23] MEDS: AZITHROMYCIN INJ 500 MG in SODIUM CHLOR 0.9% 250 ML INJ 250 ML IV SCH (04:56)
[2017-10-23] MEDS: DILTIAZEM HCL 60 MG TAB PO SCH ×3 (04:57→18:00)
[2017-10-23] MEDS: SODIUM CHLOR 0.9% 1000 ML INJ 1,000 ML IV SCH ×2 (05:00→16:06)
[2017-10-23] MEDS: SODIUM CHLORIDE 0.9% FLUSH 10 ML FLUSH IV FLUSH SCH ×2 (07:00→22:57)
[2017-10-23] MEDS: RESP: ALBUTEROL 2.5 MG/IPRATROPIUM 0.5 MG NEB (SCH) INH ×2 (07:25→20:00)
[2017-10-23 09:03] LABS: AUTOMATED NEUTROPHIL # 8.1 TH/MM3 (1.8-7.7); BASOPHIL % 0.4 % (0.0-2.0); EOSINOPHIL # 0.1 TH/MM3 (0-0.4); EOSINOPHIL % 0.6 % (0.0-4.0); HEMATOCRIT 32.7 % (39.0-51.0); HEMOGLOBIN 10.8 GM/DL (13.0-17.0); LYMPHOCYTE # 1.3 TH/MM3 (1.0-4.8); MEAN CELL VOLUME 94.1 FL (80.0-100.0); MEAN CORPUSCULAR HGB CONC 32.9 % (32.0-36.0); MEAN PLATELET VOLUME 7.2 FL (7.0-11.0); MONO % 6.2 % (0.0-8.0); MONOCYTE # 0.6 TH/MM3 (0-0.9); NEUT % 79.8 % (16.0-70.0); PLATELET COUNT 253 TH/MM3 (150-450); RED BLOOD COUNT 3.48 MIL/MM3 (4.50-5.90); RED CELL DISTRIBUTION WIDTH 15.8 % (11.6-17.2); WHITE BLOOD COUNT 10.2 TH/MM3 (4.0-11.0)
--- NOTE | 2017-10-23 09:11 | PD.ONC.PN ---
Subjective Subjective Remarks Afebrile overnight. Patient resting in bed in nad. complains of weakness. denies pain at present. wants to designate his sister as his healthcare surrogate. Objective Data Date Time Temp Pulse Resp B/P (MAP) Pulse Ox O2 Delivery O2 Flow Rate FiO2 10/23/17 08:34 97.6 89 18 131/60 (83) 93 10/23/17 07:53 97.5 79 18 93/58 (70) 96 10/23/17 07:27 96 Nasal Cannula 3.00 10/23/17 07:00 73 10/23/17 04:00 74 10/23/17 04:00 97.6 82 16 110/83 (92) 97 10/23/17 00:00 97.2 89 20 113/76 (88) 97 10/23/17 00:00 93 10/22/17 21:20 91 Nasal Cannula 1.50 10/22/17 20:00 87 10/22/17 20:00 97.3 71 17 107/78 (88) 93 10/22/17 17:47 99 10/22/17 17:45 98.8 102 18 107/77 (87) 93 10/22/17 12:37 97.8 107 18 103/66 (78) 98 Nasal Cannula 2.00 10/22/17 11:00 97.7 118 20 112/78 (89) 98 Nasal Cannula 2.00 10/22/17 09:21 98.6 119 18 112/78 (89) 99 Nasal Cannula 3.00 10/23/17 10/23/17 10/23/17 07:00 15:00 23:00 Intake Total 440 ml Output Total 600 ml Balance -160 ml Result Diagram: 10/23/17 0745 10/22/17 0453 Laboratory Results Laboratory Tests Test 10/23/17 07:45 White Blood Count 10.2 TH/MM3 Red Blood Count 3.48 MIL/MM3 Hemoglobin 10.8 GM/DL Hematocrit 32.7 % Mean Corpuscular Volume 94.1 FL Mean Corpuscular Hemoglobin 31.0 PG Mean Corpuscular Hemoglobin Concent 32.9 % Red Cell Distribution Width 15.8 % Platelet Count 253 TH/MM3 Mean Platelet Volume 7.2 FL Neutrophils (%) (Auto) 79.8 % Lymphocytes (%) (Auto) 13.0 % Monocytes (%) (Auto) 6.2 % Eosinophils (%) (Auto) 0.6 % Basophils (%) (Auto) 0.4 % Neutrophils # (Auto) 8.1 TH/MM3 Lymphocytes # (Auto) 1.3 TH/MM3 Monocytes # (Auto) 0.6 TH/MM3 Eosinophils # (Auto) 0.1 TH/MM3 Basophils # (Auto) 0.0 TH/MM3 CBC Comment DIFF FINAL Differential Comment Culture Results Microbiology Date/Time Source Procedure Growth Status 10/20/17 23:40 Blood Peripheral Aerobic Blood Culture - Preliminary NO GROWTH IN 1 DAY Resulted 10/20/17 23:40 Blood Peripheral Anaerobic Blood Culture - Preliminary NO GROWTH IN 1 DAY Resulted 10/20/17 23:35 Blood Peripheral Aerobic Blood Culture - Preliminary NO GROWTH IN 1 DAY Resulted 10/20/17 23:35 Blood Peripheral Anaerobic Blood Culture - Preliminary NO GROWTH IN 1 DAY Resulted 10/21/17 00:05 Nasal Washing Influenza Types A,B Antigen (SUE) - Final NEGATIVE FOR FLU A AND B ANTIGEN.... Complete Imaging Studies Last Impressions CT Angiography 10/21/17 0000 Signed Impressions: Service Date/Time: Saturday, October 21, 2017 02:52 - CONCLUSION: 1. Large central right lung mass extending into the mediastinum. 2. Moderate-sized right pleural effusion. 3. Low density right lower lobe pulmonary consolidation indicating drowned lung. 4. 6 mm left lung nodule. 5. Lung mass extends into the subcarinal region. Enlarged right paratracheal lymph node. 6. No evidence of pulmonary embolus. Efren Farnsworth MD Brain MRI 10/21/17 Signed Impressions: Service Date/Time: Saturday, October 21, 2017 08:39 - CONCLUSION: Multiple thin-walled rim enhancing cystic lesions identified within the white matter as described above. Given the appearance of these lesions this favors infectious process such as multiple cerebral abscesses, neurocysticercosis or lymphoma versus toxoplasma in the setting of immunocompromise patient. Additional differential diagnosis includes multiple glioblastomas or areas of tumefactive demyelination.. Ely Golden MD Abdomen/Pelvis CT 10/21/17 0000 Signed Impressions: Service Date/Time: Saturday, October 21, 2017 02:52 - CONCLUSION: 1. Findings highly suspicious for metastatic malignancy in the abdomen involving the liver , pancreas, and adrenal glands. Liver masses appear minimal to CT-guided biopsy. 2. Small moderate free fluid in the pelvis. 3. Nonspecific heterogeneous appearance of the prostate with multiple areas of decreased enhancement. 4. Diffuse atherosclerotic disease with abdominal aortic aneurysm and aortoiliac endograft. Fem-fem arterial bypass graft. The fem-fem graft is not opacified. Left common iliac and external iliac arteries also do not opacify. Efren Farnsworth MD Chest X-Ray 10/20/17 2788 Signed Impressions: Service Date/Time: Saturday, October 21, 2017 00:18 - CONCLUSION: Moderate- sized right pleural effusion and right lower lung atelectasis versus consolidation. Efren Farnsworth MD Administered Medications Medications (Trade) Dose Ordered Sig/[place] Route PRN Reason Start Time Stop Time Status Last Admin Dose Admin Ceftriaxone Sodium 1000 mg/ Sodium Chloride 100 ml @ 200 mls/hr Q24H IV 10/22/17 06:00 10/23/17 04:50 Azithromycin 500 mg/Sodium Chloride 250 ml @ 250 mls/hr Q24H IV 10/22/17 06:00 10/23/17 04:56 Sodium Chloride 1,000 ml @ 100 mls/hr Q10H IV 10/21/17 04:06 10/23/17 05:00 Albuterol/ Ipratropium (Duoneb Neb) 1 ampule BID NEB INH 10/21/17 20:00 10/23/17 07:25 Phytonadione (Mephyton Liq) 5 mg DAILY PO 10/22/17 09:00 10/22/17 09:28 Acetaminophen (Tylenol) 650 mg Q6H PRN PO PAIN SCALE 1 TO 2 10/22/17 10:15 10/22/17 23:54 Senna/Docusate Sodium (Debra-Colace) 1 tab BID PO 10/22/17 21:00 10/22/17 21:13 Diltiazem HCl (Cardizem) 60 mg Q6HR PO 10/22/17 12:30 10/23/17 04:57 Objective Remarks GENERAL: Chronically ill appearing gentleman, lying in bed resting. On 3L O2 via [place] SKIN: Warm and dry. HEAD: Normocephalic. EYES: No injection or drainage. NECK: Supple, trachea midline. CARDIOVASCULAR: Regular rate and rhythm RESPIRATORY:diminished at right base, occasional rhonchi. GASTROINTESTINAL: Abdomen soft, non-tender, nondistended. EXTREMITIES: No cyanosis, or edema. NEUROLOGICAL: awake and alert. normal speech. Assessment/Plan Problem List: (1) Metastatic disease ICD Codes: C79.9 - Secondary malignant neoplasm of unspecified site Status: Acute Plan: --CT abdomen pelvis shows metastatic malignancy involving the liver, pancreas and adrenal glands. 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 (2) Pleural effusion ICD Codes: J90 - Pleural effusion, not elsewhere classified Status: Acute Plan: --Patient likely has second primary lung cancer with mets --Thoracentesis plan for 10/23 (3) Generalized weakness ICD Codes: R53.1 - Weakness Status: Acute Plan: --Consult physical therapy Assessment 67y/o male with h/o thyroid cancer, admitted with metastatic disease of unknown primary. Plan 1. await thoracentesis today 2. discussed situation at length with patient and sister. Patient designated his sister as healthcare surrogate. discussed that we will hopefully obtain diagnosis from cytology re: thoracentesis. discussed that patient is likely too weak for any aggressive treatment, but may be a candidate for directed treatment if he has a mutation. would also be a candidate for hospice. plan is to wait for pathology Attending Statement The exam, history, and the medical decision-making described in the above note were completed with the assistance of the mid-level provider. I reviewed and agree with the findings presented. I attest that I had a [id number] encounter with the patient on the same day, and personally performed and documented my assessment and findings in the medical record. Pt did not improved with hydration. s/p thoracentesis, cytology pending, however complicated by pneumothorax. Pt w/ chest tube. Noted family meeting and decision to proceed with hospice care. Support patient's decision. Sherry Cedeno Oct 23, 2017 09:11 Armida Sims MD Oct 23, 2017 18:09
[2017-10-23 10:12] LABS: ALBUMIN 1.4 GM/DL (3.4-5.0); ALKALINE PHOSPHATASE 106 U/L (45-117); ALT (GPT) 15 U/L (12-78); AST (GOT) 47 U/L (15-37); BICARBONATE 23.2 MEQ/L (21.0-32.0); BLOOD UREA NITROGEN 9 MG/DL (7-18); CALCIUM 7.6 MG/DL (8.5-10.1); CHLORIDE 107 MEQ/L (98-107); CREATININE 0.45 MG/DL (0.60-1.30); FREE T4 1.73 NG/DL (0.76-1.46); GLOMERULAR FILTRATION RATE 188 ML/MIN (>89); GLUCOSE,RANDOM 95 MG/DL (74-106); MAGNESIUM 1.8 MG/DL (1.5-2.5); PHOSPHORUS 1.9 MG/DL (2.5-4.9); SODIUM (NA) 140 MEQ/L (136-145); TOTAL BILIRUBIN ADULT 0.7 MG/DL (0.2-1.0); TOTAL PROTEIN 5.3 GM/DL (6.4-8.2)
--- NOTE | 2017-10-23 10:27 | HHI.PR ---
Subjective Remarks This is a 67-year-old male with a PMH of Thyroid CA, Alcohol Abuse and Tobacco Abuse who was brought to the ER by EMS for weakness. Per patient, he's had difficulty "getting around" over the last 1-2 wks and states his friends got worried and called 911. Denies fever, chills, chest pain or SOB. On arrival, BP 126/85, HR 96, O2 sat 96% on RA, Temp 100.0. WBC 13.6. Chemistry essentially unremarkable. Lactic Acid 4.0. Lipase 918. INR 1.4. CXR moderate size right pleural effusion and right lower lung atelectasis versus consolidation. CTA Pulm with large central right lung mass extending into the mediastinum, moderate right sided pleural effusion, low density right lower lobe pulmonary consolidation, 6 mm left lung nodule, enlarged right paratracheal lymph nodes, no PE. CT Abdomen/Pelvis with findings highly suspicious for metastatic malignancy in the abdomen involving the liver, pancreas and adrenal glands. Pt made aware of findings, denies known h/o cancer besides Thyroid. S/p Rocephin/Zithro in ER. -8 transferred to [facility] FROM ER HAVING US OF RIGHT CHEST TO SEE IF HAS A PLEURAL EFFUSION NO CURRENT COMPLAINTS DW RN AND PT AND CM NEEDS PT AND OT AM LABS 10-23 TO GO FOR THORACENTESIS LATER TODAY NEEDS TISSUE FOR DIAGNOSIS DW RN AND CM AND PT NEEDS PT AND OT BREATHING BETTER EATING WELL Objective Vitals Vital Signs Date Time Temp Pulse Resp B/P (MAP) Pulse Ox O2 Delivery O2 Flow Rate FiO2 10/23/17 09:51 97.8 102 22 121/76 (91) 94 10/23/17 08:34 97.6 89 18 131/60 (83) 93 10/23/17 07:53 97.5 79 18 93/58 (70) 96 10/23/17 07:27 96 Nasal Cannula 3.00 10/23/17 07:00 73 10/23/17 04:00 74 10/23/17 04:00 97.6 82 16 110/83 (92) 97 10/23/17 00:00 97.2 89 20 113/76 (88) 97 10/23/17 00:00 93 10/22/17 21:20 91 Nasal Cannula 1.50 10/22/17 20:00 87 10/22/17 20:00 97.3 71 17 107/78 (88) 93 10/22/17 17:47 99 10/22/17 17:45 98.8 102 18 107/77 (87) 93 10/22/17 12:37 97.8 107 18 103/66 (78) 98 Nasal Cannula 2.00 10/22/17 11:00 97.7 118 20 112/78 (89) 98 Nasal Cannula 2.00 I/O 10/22/17 10/22/17 10/22/17 10/23/17 10/23/17 10/23/17 06:59 14:59 22:59 06:59 14:59 22:59 Intake Total 1650 ml 100 ml 440 ml Output Total 500 ml 100 ml 600 ml Balance 1150 ml 0 ml -160 ml Intake Oral 300 ml 240 ml IV Total 1350 ml 100 ml 200 ml Output Urine Total 500 ml 100 ml 600 ml # Voids 1 # Bowel Movements 0 Result Diagram: 10/23/17 0745 10/23/17 0745 Other Results Laboratory Tests Test 10/20/17 23:50 10/21/17 05:00 10/21/17 09:32 10/21/17 09:38 White Blood Count 13.6 TH/MM3 Red Blood Count 4.45 MIL/MM3 Hemoglobin 13.9 GM/DL Hematocrit 41.5 % Mean Corpuscular Volume 93.3 FL Mean Corpuscular Hemoglobin 31.3 PG Mean Corpuscular Hemoglobin Concent 33.5 % Red Cell Distribution Width 15.6 % Platelet Count 312 TH/MM3 Mean Platelet Volume 7.0 FL Neutrophils (%) (Auto) 86.6 % Lymphocytes (%) (Auto) 7.5 % Monocytes (%) (Auto) 5.5 % Eosinophils (%) (Auto) 0.2 % Basophils (%) (Auto) 0.2 % Neutrophils # (Auto) 11.8 TH/MM3 Lymphocytes # (Auto) 1.0 TH/MM3 Monocytes # (Auto) 0.7 TH/MM3 Eosinophils # (Auto) 0.0 TH/MM3 Basophils # (Auto) 0.0 TH/MM3 CBC Comment DIFF FINAL Differential Comment Prothrombin Time 14.5 SEC Prothromb Time International Ratio 1.4 RATIO Activated Partial Thromboplast Time 35.0 SEC Blood Urea Nitrogen 11 MG/DL Creatinine 0.77 MG/DL Random Glucose 105 MG/DL Total Protein 7.5 GM/DL Albumin 1.8 GM/DL Calcium Level 9.0 MG/DL Magnesium Level 2.0 MG/DL Alkaline Phosphatase 123 U/L Aspartate Amino Transf (AST/SGOT) 58 U/L Alanine Aminotransferase (ALT/SGPT) 12 U/L Total Bilirubin 1.3 MG/DL Sodium Level 134 MEQ/L Potassium Level 3.4 MEQ/L Chloride Level 95 MEQ/L Carbon Dioxide Level 26.9 MEQ/L Anion Gap 12 MEQ/L Estimat Glomerular Filtration Rate 101 ML/MIN Lactic Acid Level 4.0 mmol/L 3.4 mmol/L 3.1 mmol/L Total Creatine Kinase 174 U/L Lipase 918 U/L Urine Color YELLOW Urine Turbidity CLEAR Urine pH 6.5 Urine Specific [place] GREATER THAN 1.050 Urine Protein 30 mg/dL Urine Glucose (UA) NEG mg/dL Urine Ketones 10 mg/dL Urine Occult Blood NEG Urine Nitrite NEG Urine Bilirubin NEG Urine Urobilinogen 8.0 MG/DL Urine Leukocyte Esterase NEG Urine RBC LESS THAN 1 /hpf Urine WBC LESS THAN 1 /hpf Urine Mucus FEW /lpf Microscopic Urinalysis Comment CATH-CULT NOT IND Test 10/22/17 04:53 10/23/17 07:45 White Blood Count 9.1 TH/MM3 10.2 TH/MM3 Red Blood Count 3.48 MIL/MM3 3.48 MIL/MM3 Hemoglobin 10.9 GM/DL 10.8 GM/DL Hematocrit 32.4 % 32.7 % Mean Corpuscular Volume 93.3 FL 94.1 FL Mean Corpuscular Hemoglobin 31.4 PG 31.0 PG Mean Corpuscular Hemoglobin Concent 33.7 % 32.9 % Red Cell Distribution Width 15.6 % 15.8 % Platelet Count 250 TH/MM3 253 TH/MM3 Mean Platelet Volume 7.0 FL 7.2 FL Neutrophils (%) (Auto) 78.3 % 79.8 % Lymphocytes (%) (Auto) 13.6 % 13.0 % Monocytes (%) (Auto) 7.0 % 6.2 % Eosinophils (%) (Auto) 0.9 % 0.6 % Basophils (%) (Auto) 0.2 % 0.4 % Neutrophils # (Auto) 7.1 TH/MM3 8.1 TH/MM3 Lymphocytes # (Auto) 1.2 TH/MM3 1.3 TH/MM3 Monocytes # (Auto) 0.6 TH/MM3 0.6 TH/MM3 Eosinophils # (Auto) 0.1 TH/MM3 0.1 TH/MM3 Basophils # (Auto) 0.0 TH/MM3 0.0 TH/MM3 CBC Comment DIFF FINAL DIFF FINAL Differential Comment Blood Urea Nitrogen 8 MG/DL 9 MG/DL Creatinine 0.46 MG/DL 0.45 MG/DL Random Glucose 88 MG/DL 95 MG/DL Total Protein 5.3 GM/DL 5.3 GM/DL Albumin 1.3 GM/DL 1.4 GM/DL Calcium Level 7.8 MG/DL 7.6 MG/DL Alkaline Phosphatase 96 U/L 106 U/L Aspartate Amino Transf (AST/SGOT) 45 U/L 47 U/L Alanine Aminotransferase (ALT/SGPT) 14 U/L 15 U/L Total Bilirubin 0.7 MG/DL 0.7 MG/DL Sodium Level 141 MEQ/L 140 MEQ/L Potassium Level 3.1 MEQ/L 4.2 MEQ/L Chloride Level 105 MEQ/L 107 MEQ/L Carbon Dioxide Level 26.8 MEQ/L 23.2 MEQ/L Anion Gap 9 MEQ/L 10 MEQ/L Estimat Glomerular Filtration Rate 184 ML/MIN 188 ML/MIN Carcinoembryonic Antigen 2.1 NG/ML Phosphorus Level 1.9 MG/DL Magnesium Level 1.8 MG/DL Free Thyroxine 1.73 NG/DL Thyroid Stimulating Hormone 3rd Gen 0.088 uIU/ML Imaging Last Impressions CT Angiography 10/21/17 0000 Signed Impressions: Service Date/Time: Saturday, October 21, 2017 02:52 - CONCLUSION: 1. Large central right lung mass extending into the mediastinum. 2. Moderate-sized right pleural effusion. 3. Low density right lower lobe pulmonary consolidation indicating drowned lung. 4. 6 mm left lung nodule. 5. Lung mass extends into the subcarinal region. Enlarged right paratracheal lymph node. 6. No evidence of pulmonary embolus. Efren Farnsworth MD Brain MRI 10/21/17 0000 Signed Impressions: Service Date/Time: Saturday, October 21, 2017 08:39 - CONCLUSION: Multiple thin-walled rim enhancing cystic lesions identified within the white matter as described above. Given the appearance of these lesions this favors infectious process such as multiple cerebral abscesses, neurocysticercosis or lymphoma versus toxoplasma in the setting of immunocompromise patient. Additional differential diagnosis includes multiple glioblastomas or areas of tumefactive demyelination.. Ely Golden MD Abdomen/Pelvis CT 10/21/17 0000 Signed Impressions: Service Date/Time: Saturday, October 21, 2017 02:52 - CONCLUSION: 1. Findings highly suspicious for metastatic malignancy in the abdomen involving the liver , pancreas, and adrenal glands. Liver masses appear minimal to CT-guided biopsy. 2. Small moderate free fluid in the pelvis. 3. Nonspecific heterogeneous appearance of the prostate with multiple areas of decreased enhancement. 4. Diffuse atherosclerotic disease with abdominal aortic aneurysm and aortoiliac endograft. Fem-fem arterial bypass graft. The fem-fem graft is not opacified. Left common iliac and external iliac arteries also do not opacify. Efren Farnsworth MD Chest X-Ray 10/20/17 3706 Signed Impressions: Service Date/Time: Saturday, October 21, 2017 00:18 - CONCLUSION: Moderate- sized right pleural effusion and right lower lung atelectasis versus consolidation. Efren Farnsworth MD Objective Remarks GENERAL: Awake alert and oriented 3 talkative and cooperative SKIN: Warm and dry. HEAD: Atraumatic. Normocephalic. EYES: Pupils equal and round. No scleral icterus. No injection or drainage. Extraocular muscles intact ENT: No nasal bleeding or discharge. Mucous membranes pink and moist. Tongue is midline NECK: Trachea midline. No JVD. Supple CARDIOVASCULAR: Regular rate and rhythm. S1-S2 no S3 or S4 RESPIRATORY: No accessory muscle use. Clear to auscultation. Breath sounds equal bilaterally. Decreased breath sounds on the right GASTROINTESTINAL: Abdomen soft, non-tender, nondistended. Hepatic and splenic margins not palpable. MUSCULOSKELETAL: Extremities without clubbing, cyanosis, or edema. No obvious deformities. NEUROLOGICAL: Awake and alert. No obvious cranial nerve deficits. Motor grossly within normal limits. 4 out of 5 muscle strength in the arms and legs. Normal speech. PSYCHIATRIC: INAppropriate mood and affect; insight and judgment ABnormal. Medications and IVs Current Medications Sodium Chloride 1,000 ml @ 1,000 mls/hr Q1H ONCE IV Last administered on at 00:37; Start 10/20/17 at 23:56; Stop 10/21/17 at 00:55; Status DC Sodium Chloride 1,000 ml @ 999 mls/hr BOLUS ONCE IV Last administered on at 01:26; Start 10/21/17 at 00:00; Stop 10/21/17 at 01:00; Status DC Labetalol HCl (Trandate Inj) 10 mg ONCE ONCE IV PUSH Last administered on at 00:37; Start 10/21/17 at 00:00; Stop 10/21/17 at 00:01; Status DC Ceftriaxone Sodium 1000 mg/ Sodium Chloride 100 ml @ 200 mls/hr ONCE ONCE IV Last administered on 10/21/17at 02:04; Start 10/21/17 at 01:45; Stop 10/21/17 at 02: 14; Status DC Azithromycin 500 mg/Sodium Chloride 250 ml @ 250 mls/hr ONCE ONCE IV Last administered on 10/21/17at 04:05; Start 10/21/17 at 01:45; Stop 10/21/17 at 02:44; Status DC Iohexol (Omnipaque 350 Inj) 100 ml STK-MED ONCE IVCONTRAST Last administered on 10/21/17at 03:15; Start 10/21/17 at 03:15; Stop 10/21/17 at 03:16; Status DC Ceftriaxone Sodium 1000 mg/ Sodium Chloride 100 ml @ 200 mls/hr Q24H IV Last administered on 10/23/17at 04:50; Start 10/22/17 at 06:00 Azithromycin 500 mg/Sodium Chloride 250 ml @ 250 mls/hr Q24H IV Last administered on 10/23/17at 04:56; Start 10/22/17 at 06:00 Albuterol/ Ipratropium (Duoneb Neb) 1 ampule Q4HR NEB PRN NEB SOB/WHEEZING; Start 10/21/17 at 04:15 Sodium Chloride 1,000 ml @ 100 mls/hr Q10H IV Last administered on 10/23/17at 05 :00; Start 10/21/17 at 04:06 Sodium Chloride (NS Flush) 2 ml UNSCH PRN IV FLUSH FLUSH AFTER USING IV ACCESS ; Start 10/21/17 at 04:15; Stop 10/22/17 at 11:15; Status DC Sodium Chloride (NS Flush) 2 ml BID IV FLUSH Last administered on 10/22/17at 09: 28; Start 10/21/17 at 09:00; Stop 10/22/17 at 11:15; Status DC Ondansetron HCl (Zofran Inj) 4 mg Q6H PRN IVP NAUSEA OR VOMITING; Start at 04:15; Stop 10/22/17 at 11:15; Status DC Acetaminophen (Tylenol) 650 mg Q6H PRN PO FEVER/PAIN SCALE 1 TO 2; Start at 04:15; Stop 10/22/17 at 11:25; Status DC Morphine Sulfate (Morphine Inj) 2 mg Q3H PRN IV PUSH Pain 6-10; Start 10/21/17 at 04:15; Stop 10/22/17 at 11:23; Status DC Oxycodone HCl (Roxicodone) 5 mg Q4H PRN PO PAIN SCALE 3 TO 5; Start 10/21/17 at 04:15; Stop 10/22/17 at 11:24; Status DC Senna/Docusate Sodium (Debra-Colace) 1 tab BID PO Last administered on 10/22/17at 09:06; Start 10/21/17 at 09:00; Stop 10/22/17 at 11:15; Status DC Magnesium Hydroxide (Milk Of Magnesia Liq) 30 ml Q12H PRN PO Mild constipation ; Start 10/21/17 at 04:15; Stop 10/22/17 at 11:15; Status DC Sennosides (Senokot) 17.2 mg Q12H PRN PO Moderate constipation; Start 10/21/17 at 04:15; Stop 10/22/17 at 11:15; Status DC Bisacodyl (Dulcolax Supp) 10 mg DAILY PRN RECTAL SEVERE CONSITIPATION; Start at 04:15; Stop 10/22/17 at 11:15; Status DC Lactulose (Lactulose Liq) 30 ml DAILY PRN PO SEVERE CONSITIPATION; Start at 04:15; Stop 10/22/17 at 11:15; Status DC Folic Acid (Folate) 1 mg DAILY PO Last administered on 10/22/17at 09:06; Start at 09:00; Stop 10/22/17 at 11:23; Status DC Thiamine HCl (Vitamin B1) 100 mg DAILY PO Last administered on 10/22/17at 09:06; Start 10/21/17 at 09:00; Stop 10/22/17 at 11:23; Status DC Multivitamins/ Minerals Therapeutic (Theragran M Tab) 1 tab DAILY PO Last administered on 10/22/17at 09:06; Start 10/21/17 at 09:00; Stop 10/22/17 at 11:23; Status DC Flumazenil (Romazicon Inj) 0.2 mg Q1M PRN IV PUSH SEE LABEL COMMENTS; Start 10/21/17 at 04:45; Stop 10/22/17 at 11:15; Status DC Lorazepam (Ativan) 1 mg Q4H PRN PO CIWA 8 - 10; Start 10/21/17 at 04:45; Stop at 11:15; Status DC Lorazepam (Ativan Inj) 1 mg Q4H PRN IV PUSH CIWA 8 - 10; Start 10/21/17 at 04:45 ; Stop 10/22/17 at 11:15; Status DC Lorazepam (Ativan) 2 mg Q2H PRN PO CIWA 11-14; Start 10/21/17 at 04:45; Stop 10/22/17 at 11:15; Status DC Lorazepam (Ativan Inj) 2 mg Q2H PRN IV PUSH CIWA 11-14; Start 10/21/17 at 04:45 ; Stop 10/22/17 at 11:15; Status DC Lorazepam (Ativan Inj) 2 mg Q1H PRN IV PUSH CIWA 15-20; Start 10/21/17 at 04:45 ; Stop 10/22/17 at 11:15; Status DC Lorazepam (Ativan Inj) 2 mg Q15M PRN IV PUSH CIWA > 20; Start 10/21/17 at 04:45 ; Stop 10/22/17 at 11:15; Status DC Haloperidol Lactate (Haldol Inj) 2 mg Q15M PRN IM SEE LABEL COMMENTS; Start 10/21/17 at 04:45; Stop 10/22/17 at 11:15; Status DC Gadodiamide (Omniscan Pf Inj) 15 ml STK-MED ONCE IVCONTRAST Last administered on 10/21/17at 08:48; Start 10/21/17 at 08:48; Stop 10/21/17 at 08:49; Status DC Albuterol/ Ipratropium (Duoneb Neb) 1 ampule BID NEB INH Last administered on 10/23/17at 07:25; Start 10/21/17 at 20:00 Phytonadione (Mephyton Liq) 5 mg DAILY PO Last administered on 10/22/17at 09:28; Start 10/22/17 at 09:00 Sodium Chloride 1,000 ml @ 999 mls/hr BOLUS ONCE IV Last administered on at 20:33; Start 10/21/17 at 20:30; Stop 10/21/17 at 21:30; Status DC Sodium Chloride (NS Flush) 2 ml UNSCH PRN IV FLUSH FLUSH AFTER USING IV ACCESS ; Start 10/22/17 at 10:15 Sodium Chloride (NS Flush) 2 ml BID IV FLUSH ; Start 10/22/17 at 21:00 Folic Acid (Folate) 1 mg DAILY PO ; Start 10/23/17 at 09:00; Stop 10/27/17 at 08: 59 Thiamine HCl (Vitamin B1) 100 mg DAILY PO ; Start 10/23/17 at 09:00 Multivitamins/ Minerals Therapeutic (Theragran M Tab) 1 tab DAILY PO ; Start 10/23/17 at 09:00; Stop 10/27/17 at 08:59 Ondansetron HCl (Zofran Inj) 4 mg Q6H PRN IV PUSH NAUSEA OR VOMITING; Start 10/22/17 at 10:15; Stop 10/22/17 at 11:15; Status DC Clonidine (Catapres) 0.1 mg Q6H PRN PO SEE LABEL COMMENTS; Start 10/22/17 at 10: 15 Flumazenil (Romazicon Inj) 0.2 mg Q1M PRN IV PUSH SEE LABEL COMMENTS; Start 10/22/17 at 10:15; Stop 10/22/17 at 11:15; Status DC Lorazepam (Ativan) 1 mg Q4H PRN PO CIWA 8 - 10; Start 10/22/17 at 10:15 Lorazepam (Ativan Inj) 1 mg Q4H PRN IV PUSH CIWA 8 - 10; Start 10/22/17 at 10:15 Lorazepam (Ativan) 2 mg Q2H PRN PO CIWA 11-14; Start 10/22/17 at 10:15 Lorazepam (Ativan Inj) 2 mg Q2H PRN IV PUSH CIWA 11-14; Start 10/22/17 at 10:15 Lorazepam (Ativan Inj) 2 mg Q1H PRN IV PUSH CIWA 15-20; Start 10/22/17 at 10:15 Lorazepam (Ativan Inj) 2 mg Q15M PRN IV PUSH CIWA > 20; Start 10/22/17 at 10:15 ; Stop 10/22/17 at 11:15; Status DC Haloperidol Lactate (Haldol Inj) 2 mg Q15M PRN IM SEE LABEL COMMENTS; Start 10/22/17 at 10:15 Acetaminophen (Tylenol) 650 mg Q4H PRN PO TEMP > 100.4; Start 10/22/17 at 10:15 Ondansetron HCl (Zofran Inj) 4 mg Q6H PRN IVP NAUSEA OR VOMITING; Start at 10:15 Metoclopramide HCl (Reglan Inj) 5 mg Q6H PRN IV PUSH NAUSEA OR VOMITING; Start 10/22/17 at 10:15 Acetaminophen (Tylenol) 650 mg Q6H PRN PO PAIN SCALE 1 TO 2 Last administered on 10/22/17at 23:54; Start 10/22/17 at 10:15 Oxycodone/ Acetaminophen (Percocet 5-325 Mg) 1 tab Q6H PRN PO PAIN SCALE 3 TO 5; Start 10/22/17 at 10:15 Oxycodone/ Acetaminophen (Percocet 10-325 Mg) 1 tab Q6H PRN PO PAIN SCALE 6 TO 10; Start 10/22/17 at 10:15 Morphine Sulfate (Morphine Inj) 2 mg Q3H PRN IV PUSH Pain 3-5; if unable to take PO; Start 10/22/17 at 10:15 Morphine Sulfate (Morphine Inj) 4 mg Q3H PRN IV PUSH Pain 6-10;if unable to take PO; Start 10/22/17 at 10:15 Morphine Sulfate (Morphine Inj) 4 mg Q3H PRN IV PUSH BREAKTHROUGH PAIN; Start 10/22/17 at 10:15 Naloxone HCl (Narcan Inj) 0.4 mg UNSCH PRN IV PUSH SEE LABEL COMMENTS; Start at 10:15 Senna/Docusate Sodium (Debra-Colace) 1 tab BID PO Last administered on 10/22/17at 21:13; Start 10/22/17 at 21:00 Magnesium Hydroxide (Milk Of Magnesia Liq) 30 ml Q12H PRN PO Mild constipation ; Start 10/22/17 at 10:15 Sennosides (Senokot) 17.2 mg Q12H PRN PO Moderate constipation; Start 10/22/17 at 10:15 Bisacodyl (Dulcolax Supp) 10 mg DAILY PRN RECTAL SEVERE CONSITIPATION; Start at 10:15 Lactulose (Lactulose Liq) 30 ml DAILY PRN PO SEVERE CONSITIPATION; Start at 10:15 Flumazenil (Romazicon Inj) 0.2 mg Q1M PRN IV PUSH SEE LABEL COMMENTS; Start 10/22/17 at 10:15 Lorazepam (Ativan Inj) 2 mg Q15M PRN IV PUSH CIWA > 20; Start 10/22/17 at 10:15 Diltiazem HCl (Cardizem Inj) 10 mg ONCE ONCE IV Last administered on 10/22/17at 12:30; Start 10/22/17 at 12:30; Stop 10/22/17 at 12:31; Status DC Diltiazem HCl (Cardizem) 60 mg Q6HR PO Last administered on 10/23/17at 04:57; Start 10/22/17 at 12:30 Diltiazem HCl (Cardizem Inj) 50 mg STK-MED ONCE .ROUTE ; Start 10/22/17 at 12:25 ; Stop 10/22/17 at 12:26; Status DC Potassium Chloride 100 ml @ 50 mls/hr Q2H IV Last administered on 10/22/17at 01: 45; Start 10/22/17 at 15:00; Stop 10/23/17 at 00:59; Status DC A/P Problem List: (1) Lung mass ICD Code: R91.8 - Other nonspecific abnormal finding of lung field (2) PNA (pneumonia) ICD Code: J18.9 - Pneumonia, unspecified organism (3) Pleural effusion ICD Code: J90 - Pleural effusion, not elsewhere classified (4) Lactic acidosis ICD Code: E87.2 - Acidosis Assessment and Plan 1. Lung Mass: CTA Pulm w/ large central right lung mass extending to mediastinum w/ associated lymphadenopathy, images reviewed by me. CT Abd/ Pelvis w/ extensive metastatic disease to liver, pancreas and adrenal glands, images reviewed by me. +tobacco abuse. Consult Oncology for further evaluation. Will obtain MRI Brain to eval for possible INFORMATION SPECIALIST mets. Consult Pulmonology for eval/bronchoscopy. Pt made aware of findings, he understands and wishes to proceed w/ further treatment/intervention. POSSIBLE BRAIN METS PER SCANS- RADIATION CONSULT 2. Pleural Effusion: moderate right-sided pleural effusion on CTA Pulm, consult Pulmonology/IR for thoracentesis. O2 sat normal, will continue to monitor. ONCOLOGY CONSULTED 3. PNA: CXR w/ RLL consolidation, also seen on CTA Pulm, images reviewed by me. S/p Rocephin/Zithro in ER, will continue w/ IV Abx, DuoNeb prn. VS LUNG CANCER 4. Lactic Acidosis: Lactate 4.0, likely secondary to infection/early sepsis. Follow up cultures, IVF for hydration, repeat Lactic Acid 5. Tobacco Abuse: Pt counselled. Ativan/NicoDerm prn if needed. 6. DVT Prophylaxis: SCD/Teds. 7. Social work for d/c planning as needed. PT AND OT TO EVAL AND TREAT AM LABS GUARDED PROGNOSIS NEED TISSUE FOR DIAGNOSIS Discharge Planning PENDING CLEARANCE BY ALL Roe Rees DO Oct 23, 2017 10:27
--- NOTE | 2017-10-23 11:02 | PD.CONS ---
Consult Service Palliative Care Consult Requested By Dr. Rees Primary Care Physician Charly Vick, DO Reason for Consultation a. To assist with evaluation and management of symptoms including:Shortness of breath, pain, physical deconditioning. b. To assist medical decision maker(s) with: better understanding of current medical conditions; weighing benefits/burdens of medical treatment options; making medical treatment decisions. HPI History of Present Illness Mr. Blankenship is a 67 years old male with a past medical history significant for thyroid cancer s/p thyroidectomy, alcohol abuse and tobacco use. Patient was brought into the ER on 10/20/17 with complaints of generalized weakness which started in the past 2 weeks. Patient had a medullary carcinoma of the thyroid and he underwent thyroidectomy surgery by October 23, 2008. Patient was seen by Dr. Odell but he never followed up with oncologist since then. ER Course: * Vital Signs: Temperature 97.2 degrees F, HR 160, RR 16, BP 130/87, O2 saturation 96% on RA * EKG-Atrial fibrillation with RVR. * Chest x-ray revealed moderate sized right pleural effusion and right lower lung atelectasis versus consolidation. * CT angiography 10/21/17 revealed large central right lung mass extending into the mediastinum. Moderate size right pleural effusion. Low density right lower lobe pulmonary consultation indicating drowned lung. 6 mm left lung nodule. Lung mass extends into the subcarinal region. Enlarged right paratracheal lymph node and no pulmonary embolus. * Brain MRI 10/21/17 revealed multiple thin-walled rim enhancing cystic lesions identified within the white matter. Given the appearance of these lesions favor infectious process such as multiple cerebral abscesses, neurocysticercosis or lymphoma versus toxoplasma in the setting of immunocompromise patient. Additional differential diagnosis includes multiple glioblastoma subtle areas of tumor for active demyelination. * Abdomen/pelvis CT 10/21/17 revealed findings highly suspicious for metastatic malignancy in the abdomen involving the liver, pancreas, and adrenal glands. Liver masses appear minimal to CT-guided biopsy. Small moderate free fluid in the pelvis. Nonspecific heterogeneous appearance of the prostate with multiple areas of decreased enhancement. Diffuse atherosclerotic disease with abdominal aortic aneurysm and aorto iliac endograft. Family for him arterial bypass graft -not calcified. Left common iliac and external iliac arteries also do not opacify. * Laboratory workup revealed WBC 13.6, hemoglobin 13.9, hematocrit 41.5, platelet count 312, sodium 134, potassium 3.4, BUN/creatinine 11/0.77, lactic acid 4.0, total bilirubin 1.3, AST 58, ALT 12, total protein 7.5, albumin 1.8, lipase 918, PT 14.5, INR 1.4, APTT 35.0. * Urinalysis negative. * Patient admitted to [facility] for further evaluation. Bankruptcy Legal Assistant Dr. Nba Daigle consulted for evaluation for lung mass, moderate pleural effusion. Oncology Dr. Sims consulted on 10/21/17 for evaluation of new lung mass/liver metastases, who noted that patient`s performance status at this time is poor and recommended proceeding with thoracentesis to obtain diagnosis. Palliative care consulted to assist with symptom management and establishing goals of care. Brief telephone conversation with patient`s sister Bharati Blankenship, who is patient`s health care surrogate. Addressed code status with patient sister, discussed benefits and limitations of CPR given ongoing comorbidities and she mentioned that given the extent of metastases patient has it would not benefit patient to go through resuscitation in an event of cardiac arrest or intubation in an event of respiratory distress. She would not want her brother to suffer or be put on machines knowing his current condition and findings of diagnostic tests. Tentative meeting with patient`s sister later today to discuss goals of care. Met with patient in his room in the presence of his sister Bharati and brother Toni. Patient underwent ultrasound-guided thoracentesis today by interventional radiology. Chest x-ray after procedure revealed persistent complete opacification right hemothorax, leading to placement of right chest tube. Obtained psychosocial, past medical history and events leading to this hospitalization. Patient has been independent up until 2 weeks ago when he had generalized weakness. Patient is alert, oriented to self, place and situation with some forgetfulness. Patient was able to explain that he has been told that he has cancer but was not able to give details of where the lesions had been found. Explained to patient what diagnostic tests have revealed thus far. Patient appears to be able to weigh benefits and disadvantages of treatments. Patient also mentioned that he is also overwhelmed with his sudden decline in a short period of time. Addressed CODE STATUS, discussed risks, limitations and benefits of CPR given ongoing comorbidities. Patient was hesitant at first in deciding what he wanted, requested that he would want to think about it. Explained to patient that a full code status would be entered in the EMR and explained to him what it meant. Patient stated that he would not want "to be resuscitated and connected to any tubes or be connected to a machines". Patient slowly opened to discussing more regarding his current status and patient`s family asking appropriate questions. Patient stated that knowing what he has heard regarding chemotherapy, he would not want to go through even palliative chemotherapy. Patient decided to forgo any further aggressive treatment and would want only comfort care. Introduced hospice philosophy and benefits. Patient elected hospice services for his end of life care. Patient`s sister and brother present in room supportive of patient`s decisions. . Function/Cognitive Trajectory Patient lives alone and has been independent of all his ADLs until 2 weeks ago. Patient started complaining of back pain about 2 weeks ago and since then he was very weak to even get out of bed. Neighbors reported to local police that they had not seen patient in a long time and when police went to check on him, patient was found in bed and had not been able to get out of bed for about 2 weeks. . Review of Systems Constitutional: COMPLAINS OF: Pain, Generalized weakness, DENIES: Fever, Weight loss, Chills Eyes: DENIES: Eye inflammation, Vision loss Ears, nose, mouth, throat: DENIES: Vertigo, Nasal discharge Respiratory: COMPLAINS OF: Cough (Non productive), Shortness of breath, DENIES : Hemoptysis Cardiovascular: COMPLAINS OF: Dyspnea on Exertion, DENIES: Chest pain, Palpitations, Lower Extremity Edema Gastrointestinal: DENIES: Black stools, Bloody stools, Nausea, Vomiting, Difficulty Swallowing Genitourinary: DENIES: Urinary incontinence Musculoskeletal: COMPLAINS OF: Back pain Hematologic/Lymphatics: COMPLAINS OF: Bruising Neurologic: DENIES: Seizures, Speech Problems Psychiatric: COMPLAINS OF: Confusion (intermittently-forgetful), DENIES: Hallucinations, Agitation Past Family Social History Coded Allergies: No Known Allergies (Verified Allergy, Unknown, 10/21/17) Past Medical History Medullary Thyroid Cancer Alcohol Abuse Tobacco Abuse Hypertension Osteoporosis . 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 Reported Medications Synthroid (Levothyroxine Sodium) 100 Mcg Tab 100 Mcg PO DAILY Zithromax Z-John (Azithromycin) 250 Mg Tab 250 Mg PO DIRECTED 5 Days Caltrate 600 (Calcium Carbonate) Tab 1 Tab PO BID [Actonel] 150 Mg PO MONTHLY Prinivil (Lisinopril) 10 Mg Tab 10 Mg PO DAILY . Current Medications Medications (Trade) Dose Ordered Sig/Milan Route Start Time Stop Time Status Last Admin Ceftriaxone Sodium 1000 mg/ Sodium Chloride 100 ml @ 200 mls/hr Q24H IV 10/22/17 06:00 10/23/17 04:50 Azithromycin 500 mg/Sodium Chloride 250 ml @ 250 mls/hr Q24H IV 10/22/17 06:00 10/23/17 04:56 (Duoneb Neb) 1 ampule Q4HR NEB PRN NEB 10/21/17 04:15 Sodium Chloride 1,000 ml @ 100 mls/hr Q10H IV 10/21/17 04:06 10/23/17 05:00 (Duoneb Neb) 1 ampule BID NEB INH 10/21/17 20:00 10/23/17 07:25 (Mephyton Liq) 5 mg DAILY PO 10/22/17 09:00 10/22/17 09:28 (NS Flush) 2 ml UNSCH PRN IV FLUSH 10/22/17 10:15 (NS Flush) 2 ml BID IV FLUSH 10/22/17 21:00 (Folate) 1 mg DAILY PO 10/23/17 09:00 10/27/17 08:59 (Vitamin B1) 100 mg DAILY PO 10/23/17 09:00 (Theragran M Tab) 1 tab DAILY PO 10/23/17 09:00 10/27/17 08:59 (Catapres) 0.1 mg Q6H PRN PO 10/22/17 10:15 (Ativan) 1 mg Q4H PRN PO 10/22/17 10:15 (Ativan Inj) 1 mg Q4H PRN IV PUSH 10/22/17 10:15 (Ativan) 2 mg Q2H PRN PO 10/22/17 10:15 (Ativan Inj) 2 mg Q2H PRN IV PUSH 10/22/17 10:15 (Ativan Inj) 2 mg Q1H PRN IV PUSH 10/22/17 10:15 (Haldol Inj) 2 mg Q15M PRN IM 10/22/17 10:15 (Tylenol) 650 mg Q4H PRN PO 10/22/17 10:15 (Zofran Inj) 4 mg Q6H PRN IVP 10/22/17 10:15 (Reglan Inj) 5 mg Q6H PRN IV PUSH 10/22/17 10:15 (Tylenol) 650 mg Q6H PRN PO 10/22/17 10:15 10/22/17 23:54 (Percocet 5-325 Mg) 1 tab Q6H PRN PO 10/22/17 10:15 (Percocet 10-325 Mg) 1 tab Q6H PRN PO 10/22/17 10:15 (Morphine Inj) 2 mg Q3H PRN IV PUSH 10/22/17 10:15 (Morphine Inj) 4 mg Q3H PRN IV PUSH 10/22/17 10:15 (Morphine Inj) 4 mg Q3H PRN IV PUSH 10/22/17 10:15 (Narcan Inj) 0.4 mg UNSCH PRN IV PUSH 10/22/17 10:15 (Debra-Colace) 1 tab BID PO 10/22/17 21:00 10/22/17 21:13 (Milk Of Magnesia Liq) 30 ml Q12H PRN PO 10/22/17 10:15 (Senokot) 17.2 mg Q12H PRN PO 10/22/17 10:15 (Dulcolax Supp) 10 mg DAILY PRN RECTAL 10/22/17 10:15 (Lactulose Liq) 30 ml DAILY PRN PO 10/22/17 10:15 (Romazicon Inj) 0.2 mg Q1M PRN IV PUSH 10/22/17 10:15 (Ativan Inj) 2 mg Q15M PRN IV PUSH 10/22/17 10:15 (Cardizem) 60 mg Q6HR PO 10/22/17 12:30 10/23/17 04:57 Family History Father at age 62 from Hodgkins lymphoma Mother in the 80s- she had heart disease Brother in his 60`s from heart disease/ETOH abuse Brother living- has dementia/ had a hemorrhagic stroke form MVC . Substance Use Tobacco:Smokes 05/18 PPD, quit smoking 2 weeks ago Alcohol:Yes, drinks alcohol daily- 6 pack daily- has not had alcohol in the past 2 weeks Prescription med abuse:Denies Illicits:Denies . Psychosocial History Patient is originally from [place], [place]. Moved to [place] in 1960 . Patient was once and is . Patient never had children. 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 Patient lives alone. . Spiritual/Cultural Factors No congregational affiliation. . Living Will: Never completed Health Care Surrogate: Copy in medical record Durable Power of Junior Sales Representative: Never completed Date completed: 10/23/2017 . Health Care Surrogate(s): Healthcare surrogate-Guillermo Blankenship-[phone](home)/[phone] ( cell) . . Today's verbally stated goals: Comfort care only . Family/friends goals: Comfort care only . Ethical and Legal Issues None identified at this time. . Physical Exam Vital Signs Date Time Temp Pulse Resp B/P (MAP) Pulse Ox O2 Delivery O2 Flow Rate FiO2 10/23/17 09:51 97.8 102 22 121/76 (91) 94 10/23/17 08:34 97.6 89 18 131/60 (83) 93 10/23/17 07:53 97.5 79 18 93/58 (70) 96 10/23/17 07:27 96 Nasal Cannula 3.00 10/23/17 07:00 73 10/23/17 04:00 74 10/23/17 04:00 97.6 82 16 110/83 (92) 97 10/23/17 00:00 97.2 89 20 113/76 (88) 97 10/23/17 00:00 93 10/22/17 21:20 91 Nasal Cannula 1.50 10/22/17 20:00 87 10/22/17 20:00 97.3 71 17 107/78 (88) 93 10/22/17 17:47 99 10/22/17 17:45 98.8 102 18 107/77 (87) 93 10/22/17 12:37 97.8 107 18 103/66 (78) 98 Nasal Cannula 2.00 10/22/17 11:00 97.7 118 20 112/78 (89) 98 Nasal Cannula 2.00 Exam CONSTITUTIONAL/GENERAL: This is an elderly cachectic patient, appears older than stated age in mild respiratory distress. TUBES/LINES/DRAINS: Right chest tube, PIV, nasal cannula SKIN: No jaundice, rashes, or lesions. Ecchymoses on upper extremities. No wounds seen anteriorly. Skin temperature appropriate. Not diaphoretic. HEAD: Atraumatic. Normocephalic. EYES: Pupils equal and round and reactive. Extraocular motions intact. No scleral icterus. No injection or drainage. Fundi not examined. ENT: Hearing grossly normal. Nose without bleeding or purulent drainage. Moist oral mucosa NECK: Trachea midline. Supple, nontender. CARDIOVASCULAR: Regular rate and rhythm without murmurs, gallops, or rubs. No JVD. Peripheral pulses symmetric. RESPIRATORY/CHEST: Lung sounds diminished in the bases. Clear to auscultation. No wheezes, rales, or rhonchi. GASTROINTESTINAL: Abdomen soft, non-tender, nondistended. No guarding. Bowel sounds present. GENITOURINARY: Without palpable bladder distension. MUSCULOSKELETAL: Extremities without clubbing, cyanosis, or edema. No joint tenderness or effusion noted. No calf tenderness. No mottling or clubbing. NEUROLOGICAL: Awake and alert. Motor and sensory grossly within normal limits. Follows commands. Moves all extremities. PSYCHIATRIC: No obvious anxiety/depression. no apparent hallucinations or other psychotic thought process. Diagnostic Tests Laboratory Laboratory Tests Test 10/20/17 23:50 10/21/17 05:00 10/21/17 09:32 10/21/17 09:38 White Blood Count 13.6 TH/MM3 (4.0-11.0) Red Blood Count 4.45 MIL/MM3 (4.50-5.90) Hemoglobin 13.9 GM/DL (13.0-17.0) Hematocrit 41.5 % (39.0-51.0) Mean Corpuscular Volume 93.3 FL (80.0-100.0) Mean Corpuscular Hemoglobin 31.3 PG (27.0-34.0) Mean Corpuscular Hemoglobin Concent 33.5 % (32.0-36.0) Red Cell Distribution Width 15.6 % (11.6-17.2) Platelet Count 312 TH/MM3 (150-450) Mean Platelet Volume 7.0 FL (7.0-11.0) Neutrophils (%) (Auto) 86.6 % (16.0-70.0) Lymphocytes (%) (Auto) 7.5 % (9.0-44.0) Monocytes (%) (Auto) 5.5 % (0.0-8.0) Eosinophils (%) (Auto) 0.2 % (0.0-4.0) Basophils (%) (Auto) 0.2 % (0.0-2.0) Neutrophils # (Auto) 11.8 TH/MM3 (1.8-7.7) Lymphocytes # (Auto) 1.0 TH/MM3 (1.0-4.8) Monocytes # (Auto) 0.7 TH/MM3 (0-0.9) Eosinophils # (Auto) 0.0 TH/MM3 (0-0.4) Basophils # (Auto) 0.0 TH/MM3 (0-0.2) CBC Comment DIFF FINAL Differential Comment Prothrombin Time 14.5 SEC (9.8-11.6) Prothromb Time International Ratio 1.4 RATIO Activated Partial Thromboplast Time 35.0 SEC (24.3-30.1) Blood Urea Nitrogen 11 MG/DL (7-18) Creatinine 0.77 MG/DL (0.60-1.30) Random Glucose 105 MG/DL (74-106) Total Protein 7.5 GM/DL (6.4-8.2) Albumin 1.8 GM/DL (3.4-5.0) Calcium Level 9.0 MG/DL (8.5-10.1) Magnesium Level 2.0 MG/DL (1.5-2.5) Alkaline Phosphatase 123 U/L (45-117) Aspartate Amino Transf (AST/SGOT) 58 U/L (15-37) Alanine Aminotransferase (ALT/SGPT) 12 U/L (12-78) Total Bilirubin 1.3 MG/DL (0.2-1.0) Sodium Level 134 MEQ/L (136-145) Potassium Level 3.4 MEQ/L (3.5-5.1) Chloride Level 95 MEQ/L (98-107) Carbon Dioxide Level 26.9 MEQ/L (21.0-32.0) Anion Gap 12 MEQ/L (5-15) Estimat Glomerular Filtration Rate 101 ML/MIN (>89) Lactic Acid Level 4.0 mmol/L (0.4-2.0) 3.4 mmol/L (0.4-2.0) 3.1 mmol/L (0.4-2.0) Total Creatine Kinase 174 U/L (39-308) Lipase 918 U/L (73-393) Urine Color YELLOW (YELLW/STRAW) Urine Turbidity CLEAR (CLEAR) Urine pH 6.5 (5.0-8.5) Urine Specific Cranberry GREATER THAN 1.050 Urine Protein 30 mg/dL (NEG-TRACE) Urine Glucose (UA) NEG mg/dL (NEG) Urine Ketones 10 mg/dL (NEG) Urine Occult Blood NEG (NEG) Urine Nitrite NEG (NEG) Urine Bilirubin NEG (NEG) Urine Urobilinogen 8.0 MG/DL (LESS THAN Urine Leukocyte Esterase NEG (NEG) Urine RBC LESS THAN 1 /hpf (0-3) Urine WBC LESS THAN 1 /hpf (0-5) Urine Mucus FEW /lpf (OCC) Microscopic Urinalysis Comment CATH-CULT NOT IND Test 10/22/17 04:53 10/23/17 07:45 White Blood Count 9.1 TH/MM3 (4.0-11.0) 10.2 TH/MM3 (4.0-11.0) Red Blood Count 3.48 MIL/MM3 (4.50-5.90) 3.48 MIL/MM3 (4.50-5.90) Hemoglobin 10.9 GM/DL (13.0-17.0) 10.8 GM/DL (13.0-17.0) Hematocrit 32.4 % (39.0-51.0) 32.7 % (39.0-51.0) Mean Corpuscular Volume 93.3 FL (80.0-100.0) 94.1 FL (80.0-100.0) Mean Corpuscular Hemoglobin 31.4 PG (27.0-34.0) 31.0 PG (27.0-34.0) Mean Corpuscular Hemoglobin Concent 33.7 % (32.0-36.0) 32.9 % (32.0-36.0) Red Cell Distribution Width 15.6 % (11.6-17.2) 15.8 % (11.6-17.2) Platelet Count 250 TH/MM3 (150-450) 253 TH/MM3 (150-450) Mean Platelet Volume 7.0 FL (7.0-11.0) 7.2 FL (7.0-11.0) Neutrophils (%) (Auto) 78.3 % (16.0-70.0) 79.8 % (16.0-70.0) Lymphocytes (%) (Auto) 13.6 % (9.0-44.0) 13.0 % (9.0-44.0) Monocytes (%) (Auto) 7.0 % (0.0-8.0) 6.2 % (0.0-8.0) Eosinophils (%) (Auto) 0.9 % (0.0-4.0) 0.6 % (0.0-4.0) Basophils (%) (Auto) 0.2 % (0.0-2.0) 0.4 % (0.0-2.0) Neutrophils # (Auto) 7.1 TH/MM3 (1.8-7.7) 8.1 TH/MM3 (1.8-7.7) Lymphocytes # (Auto) 1.2 TH/MM3 (1.0-4.8) 1.3 TH/MM3 (1.0-4.8) Monocytes # (Auto) 0.6 TH/MM3 (0-0.9) 0.6 TH/MM3 (0-0.9) Eosinophils # (Auto) 0.1 TH/MM3 (0-0.4) 0.1 TH/MM3 (0-0.4) Basophils # (Auto) 0.0 TH/MM3 (0-0.2) 0.0 TH/MM3 (0-0.2) CBC Comment DIFF FINAL DIFF FINAL Differential Comment Blood Urea Nitrogen 8 MG/DL (7-18) Creatinine 0.46 MG/DL (0.60-1.30) Random Glucose 88 MG/DL (74-106) Total Protein 5.3 GM/DL (6.4-8.2) Albumin 1.3 GM/DL (3.4-5.0) Calcium Level 7.8 MG/DL (8.5-10.1) Alkaline Phosphatase 96 U/L (45-117) Aspartate Amino Transf (AST/SGOT) 45 U/L (15-37) Alanine Aminotransferase (ALT/SGPT) 14 U/L (12-78) Total Bilirubin 0.7 MG/DL (0.2-1.0) Sodium Level 141 MEQ/L (136-145) Potassium Level 3.1 MEQ/L (3.5-5.1) Chloride Level 105 MEQ/L (98-107) Carbon Dioxide Level 26.8 MEQ/L (21.0-32.0) Anion Gap 9 MEQ/L (5-15) Estimat Glomerular Filtration Rate 184 ML/MIN (>89) Carcinoembryonic Antigen 2.1 NG/ML (0.2-5.0) Result Diagram: 10/23/17 0745 10/22/17 0453 Microbiology Microbiology Date/Time Source Procedure Growth Status 10/20/17 23:40 Blood Peripheral Aerobic Blood Culture - Preliminary NO GROWTH IN 1 DAY Resulted 10/20/17 23:40 Blood Peripheral Anaerobic Blood Culture - Preliminary NO GROWTH IN 1 DAY Resulted 10/20/17 23:35 Blood Peripheral Aerobic Blood Culture - Preliminary NO GROWTH IN 1 DAY Resulted 10/20/17 23:35 Blood Peripheral Anaerobic Blood Culture - Preliminary NO GROWTH IN 1 DAY Resulted 10/21/17 00:05 Nasal Washing Influenza Types A,B Antigen (SUE) - Final NEGATIVE FOR FLU A AND B ANTIGEN.... Complete Imaging Last Impressions CT Angiography 10/21/17 0000 Signed Impressions: Service Date/Time: Saturday, October 21, 2017 02:52 - CONCLUSION: 1. Large central right lung mass extending into the mediastinum. 2. Moderate-sized right pleural effusion. 3. Low density right lower lobe pulmonary consolidation indicating drowned lung. 4. 6 mm left lung nodule. 5. Lung mass extends into the subcarinal region. Enlarged right paratracheal lymph node. 6. No evidence of pulmonary embolus. Efren Farnsworth MD Brain MRI 10/21/17 0000 Signed Impressions: Service Date/Time: Saturday, October 21, 2017 08:39 - CONCLUSION: Multiple thin-walled rim enhancing cystic lesions identified within the white matter as described above. Given the appearance of these lesions this favors infectious process such as multiple cerebral abscesses, neurocysticercosis or lymphoma versus toxoplasma in the setting of immunocompromise patient. Additional differential diagnosis includes multiple glioblastomas or areas of tumefactive demyelination.. Ely Golden MD Abdomen/Pelvis CT 10/21/17 0000 Signed Impressions: Service Date/Time: Saturday, October 21, 2017 02:52 - CONCLUSION: 1. Findings highly suspicious for metastatic malignancy in the abdomen involving the liver , pancreas, and adrenal glands. Liver masses appear minimal to CT-guided biopsy. 2. Small moderate free fluid in the pelvis. 3. Nonspecific heterogeneous appearance of the prostate with multiple areas of decreased enhancement. 4. Diffuse atherosclerotic disease with abdominal aortic aneurysm and aortoiliac endograft. Fem-fem arterial bypass graft. The fem-fem graft is not opacified. Left common iliac and external iliac arteries also do not opacify. Efren Farnsworth MD Chest X-Ray 10/20/17 0132 Signed Impressions: Service Date/Time: Saturday, October 21, 2017 00:18 - CONCLUSION: Moderate- sized right pleural effusion and right lower lung atelectasis versus consolidation. Efren Farnsworth MD Procedures 10/23/2017 -ultrasound right guided thoracentesis 10/[id number] chest tube insertion . Patient/Family Conference Present at Family Conference: Meeting with patient's sister Freida, brother Toni and patient is at bedside . Family Conference Location: Bedside, Telephone Issues Discussed: * Palliative care role, purpose, approach * Additional medical, psychosocial, and spiritual history * Patients general health, functional status, and cognitive changes in the months leading up to the current hospitalization * Patient/family understanding of the current medical problems * Patient/family understanding of prognosis * Patients goals of care as best understood from advance directives and/or conversations and/or values * Current medical treatment options and benefits/burdens of those options * Likely scenarios comparing ongoing aggressive care with a transition to comfort measures only * Questions answered to the best of my ability * Introduced hospice philosophy and benefits * Palliative care contact information provided . Assessment and Plan Disease Oriented Problem List: (1) Metastatic disease (2) Pleural effusion (3) Lung mass (4) PNA (pneumonia) Symptom Scale: (1) Shortness of breath 0-10 Scale: Unable to quantify Comment: Patient had pleural effusion and pneumonia . (2) Pain 0-10 Scale: Unable to quantify (Patient reports having back pain for the past 2 weeks. ) (3) Physical deconditioning 0-10 Scale: Unable to quantify Comment: Progressive. . Pertinent Non-Medical Issues Psychosocial:Patient is originally from [facility]. He is with no children. 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 Spiritual:Patient is Taoist Legal: Ethical issues impacting care: None identified at this time . Important Contacts Healthcare surrogate-Sister- Bharati Blankenship-[phone](home)/[phone] ( cell) . . Prognosis Mr. Blankenship is a 67 years old male with a past medical history significant for thyroid cancer s/p thyroidectomy, alcohol abuse and tobacco use. Patient was brought into the ER on 10/20/17 with complaints of generalized weakness which started in the past 2 weeks. Patient had a medullary carcinoma of the thyroidectomy surgery by October 23, 2008. Clinical course complicated with diagnostic tests revealing highly suspicious extensive metastatic disease to lungs, liver, pancreas and adrenal glands. Given ongoing comorbidities, patient is at high risk for further complications, deterioration, and decline. Patient would be appropriate for hospice if goals are not aggressive. . Code Status: No Code Plan PLAN: Legal decision maker: Patient is able to participate in making his own medical decisions, though he has requested to make his medical decisions in the presence of his sister Bharati Blankenship whom he designated is his healthcare surrogate. In the event that he is incapacitated his sister, who would save as his healthcare surrogate. Goals: Comfort care only-requested hospice services CODE STATUS: No Code, DNR/DNI Patient is alert, oriented to self, place and situation with some forgetfulness. Patient was able to explain that he has been told that he has cancer but was not able to give details of where the lesions had been found. Explained to patient what diagnostic tests have revealed thus far. Patient appears to be able to weigh benefits and disadvantages of treatments. Patient also mentioned that he is also overwhelmed with his sudden decline in a short period of time. Addressed CODE STATUS, discussed risks, limitations and benefits of CPR given ongoing comorbidities. Patient was hesitant at first in deciding what he wanted, requested that he would want to think about it. Explained to patient that a full code status would be entered in the EMR and explained to him what it meant. Patient stated that he would not want "to be resuscitated and connected to any tubes or be connected to a machines". Patient slowly opened to discussing more regarding his current status and patient`s family asking appropriate questions. Patient stated that knowing what he has heard regarding chemotherapy, he would not want to go through even palliative chemotherapy. Patient decided to forgo any further aggressive treatment and would want only comfort care. Introduced hospice philosophy and benefits. Patient elected hospice services for his end of life care. Patient`s sister and brother present in room supportive of patient`s decisions. SYMPTOMS: * Shortness of breath: Patient has history of smoking. 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 Patient underwent ultrasound-guided thoracentesis today with placement of right chest tube. Patient was started on antibiotics. Currently on 3 L nasal cannula. Duonebs ATC and prn available. No recommendations at this time * Pain: Patient complaining of progressive back pain for the past 2 weeks. Patient denying pain today. Morphine sulfate and oxycodone/acetaminophen prn available prn * Physical deconditioning: Progressive. Patient has lost significant amount of weight in the past 2 weeks per family. Patient is being bedbound for the past 2 weeks, with decreased oral intake. Patient has decided to forego aggressive treatment and only wants comfort care through hospice services. Palliative care will continue to follow the patient during hospital course as condition evolves, to assist patient/decision-maker with understanding of their medical conditions, weighing benefits/burdens of treatment options, for clarification of goals of treatment. Additionally will assist with any symptoms of palliative concern Thank you for the opportunity to participate in the care of Mr. Blankenship. Attestation To help prompt me to consider important information that might be impacting today's encounter and assessment, information from prior notes written by myself or my colleagues may have been "brought forward" into today's note. My signature on this note, however, is an attestation that I personally performed the exam, history, and/or decision-making noted today, and, unless otherwise indicated, the interactions with patient, family, and staff as well as the review of records all occurred today. I also attest that the listed assessment and stated plan reflect my best clinical judgment today based on the combination of historical information, prior notes, and today's exam/ interactions. When time spent is documented, it refers only to time spent today by the signer, or if indicated, combined time spent today by collaborating physician/nurse practitioner. Amna Paez Oct 23, 2017 11:01
[2017-10-23 11:46] LABS: PLEURAL FLUID RBC 285 /MM3 (0-0); PLEURAL FLUID WBC 478 /MM3 (0-10)
[2017-10-23 11:48] LABS: PLEURAL FLUID LYMPHS 50 %; PLEURAL FLUID MESOTHELIAL 4 %; PLEURAL FLUID MONOS 3 %; PLEURAL FLUID POLYS (SEGS) 43 %
--- NOTE | 2017-10-23 12:04 | RADRPT ---
EXAM DATE/TIME: 10/23/2017 10:17 [facility] COMPARISON: No previous studies available for comparison. INDICATIONS : Status post right thoracentesis. MEDICAL HISTORY : Hypertension. Carcinoma, thyroid. SURGICAL HISTORY : Thyroidectomy. ENCOUNTER: Subsequent ACUITY: 3 days PAIN SCORE: 0/10 LOCATION: Right chest FINDINGS: A single frontal expiratory view of the chest was performed. The lungs are symmetrically aerated and clear. No evidence of pneumothorax. Mediastinal structures are in the midline. The cardio-mediastinal contours and bronchopulmonary markings are unremarkable for an expiratory exam . Osseous structures are intact. CONCLUSION: Persistent complete opacification right hemithorax. CT scan is pending. If significant fluid remain s in the chest will be placed . Discussed with Dr. Cabrera Morel MD FACR on October 23, 2017 at 12:00 Board Certified Radiologist. This report was verified electronically.
[2017-10-23] MEDS ORDERED: fentaNYL CITRATE 250 MCG/5 ML AMP ONE (12:42)
--- NOTE | 2017-10-23 13:12 | RADRPT ---
EXAM DATE/TIME: 10/23/2017 10:24 [facility] COMPARISON: No previous studies available for comparison. INDICATIONS : Pleural effusion. MEDICAL HISTORY : Hypertension. Thyroid disease. Confusion. Cough. Thyroid cancer. SURGICAL HISTORY : Thyroidectomy. Digits 2 & 3 on right hand. ENCOUNTER: Initial ACUITY: 1 day PAIN SCORE: 4/10 LOCATION: Right chest FLUID: Total volume of 650 cc of clear, yellow fluid was removed. Fluid was sent to lab for ordered studies. TECHNIQUE: 1. Ultrasound guidance for thoracentesis. 2. Thoracentesis. The risks, benefits, and alternatives to ultrasound guided thoracentesis were explained to the patien t in lay simple terms, including the risk of bleeding and infection. Written and verbal informed con sent was obtained. Appropriate area for thoracentesis was marked under ultrasound guidance with the patient in the uprig ht position. Overlying skin was prepped and draped in the usual sterile fashion and with local anest hetic, a dermatotomy was made with an 11 blade scalpel. A 6 Mal[place]ian thoracentesis catheter was placed in the pleural space and fluid was removed. Catheter was then removed and a sterile dressing applie d. There were no immediate complications. The patient tolerated the procedure well and the left the ultrasound suite in stable condition. Chest radiograph is to be obtained. CONCLUSION: Uncomplicated ultrasound right guided thoracentesis. Significant fluid remains. Roe Morel MD FACR on October 23, 2017 at 13:09 Board Certified Radiologist. This report was verified electronically.
--- NOTE | 2017-10-23 14:15 | RADRPT ---
EXAM DATE/TIME: 10/23/2017 13:52 [facility] COMPARISON: CHEST EXPIRATION ONLY, October 23, 2017, 10:17. INDICATIONS : Evaluate for pneumothorax post biopsy. MEDICAL HISTORY : Hypertension. Carcinoma, thyroid. SURGICAL HISTORY : Thyroidectomy. ENCOUNTER: Subsequent ACUITY: 3 days PAIN SCORE: 0/10 LOCATION: Bilateral chest FINDINGS: Interval placement of a pigtail inferior right chest tube. Significantly improved aeration of the rig ht lung with residual moderate sized pleural effusion. No pneumothorax. Cardiomediastinal contours ar e stable. Remainder of the exam is unchanged. CONCLUSION: 1. Significantly improved aeration of the right lung following placement of right-sided chest tube wi th moderate residual effusion. No pneumothorax. Silvestre Roth MD on October 23, 2017 at 14:12 Board Certified Radiologist. This report was verified electronically.
[2017-10-23] MEDS: FOLIC ACID 1 MG TAB PO SCH (14:40)
[2017-10-23] MEDS: THIAMINE HCL 100 MG TAB PO SCH (14:40)
[2017-10-23] MEDS: PHYTONADIONE 5 MG/SWFI 5 ML ORAL SYR PO SCH (14:40)
[2017-10-23] MEDS: DOCUSATE SODIUM 50 MG/SENNA 8.6 MG TAB PO SCH ×2 (14:40→22:57)
[2017-10-23] MEDS: MULTIVITAMINS/MINERALS THERAPEUTIC TAB PO SCH (14:40)
[2017-10-23] MEDS ORDERED: LIDOCAINE HCL 1% PF 30 ML VIAL ONE (15:06)
--- NOTE | 2017-10-23 15:28 | EKG ---
Date Performed: 10/22/2017 Time Performed: 11:51:10 PTAGE: 67 years EKG: ATRIAL FIBRILLATION WITH RAPID VENTRICULAR RESPONSE SEPTAL MYOCARDIAL INFARCTION Since the previous tracing, no significant change noted ABNORMAL ECG PREVIOUS TRACING : 10/20/17 @ 2343 DOCTOR: Sarbjit Taveras Interpretating Date/Time 10/23/2017 15:20:46
--- NOTE | 2017-10-23 15:47 | RADRPT ---
EXAM DATE/TIME: 10/23/2017 12:39 INDICATIONS : Right pleural sffusion MEDICATION(S): 1.) 100 mcg fentanyl (Sublimaze) IV Vancomycin within 2 hrs of procedure, Ancef (or alternative) within 1 hr of procedure start. DEVICE(S): 1.) 8 Fr Skater FLUID: Total volume of500 cc of clear, yellow fluid was remoted. Fluid was discarded. MEDICAL HISTORY : Carcinoma, lung. SURGICAL HISTORY : None. ENCOUNTER: Initial ACUITY: 1 day PAIN SCORE: 0/10 LOCATION: Right chest PROCEDURE: PROCEDURE : 1. CT guided chest tube placement. 2. Conscious sedation with continuous EKG and oximetry monitoring. The risks, benefits and alternatives to the procedure were explained and verbal and written consent w as obtained. The site was prepped in sterile fashion. Full sterile technique was used, including ca p, mask, sterile gloves and gown and a large sterile sheet. Hand hygiene and 2% chlorhexidine and/or betadine/alcohol prep was utilized per protocol for cutaneous antisepsis. The skin and subcutaneous tissues were infiltrated with local anesthetic solution. Using automated exposure control and adjus tment of the mA and/or kV according to patient size, radiation dose was kept as low as reasonably ach ievable to obtain optimal diagnostic quality images. DICOM format image data is available electronic ally for review and comparison. With CT guidance the chest was punctured and the prescribed catheter was placed in the lung apex. Wal l suction was applied. Post procedure images demonstrate satisfactory position of the tube. The cat heter was sutured in place and a Percu-Stay was applied. Conscious sedation was performed with the prescribed dosages and duration as above. The patient dago ated the procedure well and there were no complications. EKG and oximetry remained stable throughout the procedure. The patient was sent to post anesthesia recovery in stable condition. CONCLUSION: Uncomplicated right chest tube placement as above. Roe Morel MD FACR on October 23, 2017 at 15:43 Board Certified Radiologist. This report was verified electronically.
[2017-10-23 15:54] LABS: HEMOGLOBIN A1C 5.3 % (4.3-6.0)
[2017-10-24] VITALS (16 sets, daily range): BP systolic 89–106; BP diastolic 60–72; PULSE 77–111; RESP 17–18; TEMP 97.6–98.6; O2SAT 91–95
[2017-10-24] MEDS: SODIUM CHLOR 0.9% 1000 ML INJ 1,000 ML IV SCH ×3 (02:06→19:40)
--- NOTE | 2017-10-24 04:10 | RADRPT ---
EXAM DATE/TIME: 10/24/2017 03:42 [facility] COMPARISON: CHEST EXPIRATION ONLY, October 23, 2017, 13:52. INDICATIONS : Evaluate pneumonia, short of breath. MEDICAL HISTORY : Hypertension. Carcinoma, thyroid. SURGICAL HISTORY : Thyroidectomy. ENCOUNTER: Subsequent ACUITY: 2 days PAIN SCORE: 0/10 LOCATION: Bilateral chest FINDINGS: A single frontal expiratory view of the chest was performed. The patient is rotated. Right-sided ches t tube. Pleural-parenchymal density again seen. No pneumothorax. Pulmonary vascular congestion with i nterstitial densities. Left-sided rib fractures. CONCLUSION: 1. Right-sided chest tube without definite pneumothorax. 2. Cardiomegaly with pulmonary vascular congestion and interstitial edema. Hebert Gonzalez MD on October 24, 2017 at 4:07 Board Certified Radiologist. This report was verified electronically.
[2017-10-24] MEDS: DILTIAZEM HCL 60 MG TAB PO SCH ×4 (06:00→17:51)
[2017-10-24] MEDS: AZITHROMYCIN INJ 500 MG in SODIUM CHLOR 0.9% 250 ML INJ 250 ML IV SCH (06:28)
[2017-10-24] MEDS: cefTRIAXone INJ 1,000 MG in SODIUM CHLORIDE 0.9% INJ 100 ML IV SCH (06:32)
[2017-10-24 08:10] LABS: AUTOMATED NEUTROPHIL # 8.8 TH/MM3 (1.8-7.7); BASOPHIL % 0.2 % (0.0-2.0); EOSINOPHIL # 0.1 TH/MM3 (0-0.4); EOSINOPHIL % 0.6 % (0.0-4.0); HEMATOCRIT 34.9 % (39.0-51.0); HEMOGLOBIN 11.7 GM/DL (13.0-17.0); LYMPH % 10.4 % (9.0-44.0); LYMPHOCYTE # 1.1 TH/MM3 (1.0-4.8); MEAN CELL VOLUME 93.8 FL (80.0-100.0); MEAN CORPUSCULAR HEMOGLOBIN 31.5 PG (27.0-34.0); MEAN CORPUSCULAR HGB CONC 33.6 % (32.0-36.0); MEAN PLATELET VOLUME 7.3 FL (7.0-11.0); MONO % 6.6 % (0.0-8.0); MONOCYTE # 0.7 TH/MM3 (0-0.9); NEUT % 82.2 % (16.0-70.0); PLATELET COUNT 222 TH/MM3 (150-450); RED BLOOD COUNT 3.72 MIL/MM3 (4.50-5.90); RED CELL DISTRIBUTION WIDTH 15.9 % (11.6-17.2); WHITE BLOOD COUNT 10.7 TH/MM3 (4.0-11.0)
[2017-10-24 08:14] LABS: ALBUMIN 1.3 GM/DL (3.4-5.0); ALT (GPT) 18 U/L (12-78); AST (GOT) 60 U/L (15-37); BICARBONATE 23.8 MEQ/L (21.0-32.0); CALCIUM 7.5 MG/DL (8.5-10.1); CHLORIDE 107 MEQ/L (98-107); CREATININE 0.37 MG/DL (0.60-1.30); GLOMERULAR FILTRATION RATE 236 ML/MIN (>89); GLUCOSE,RANDOM 72 MG/DL (74-106); MAGNESIUM 1.7 MG/DL (1.5-2.5); PHOSPHORUS 1.6 MG/DL (2.5-4.9); SODIUM (NA) 140 MEQ/L (136-145)
[2017-10-24 08:16] LABS: ALKALINE PHOSPHATASE 133 U/L (45-117); TOTAL BILIRUBIN ADULT 0.7 MG/DL (0.2-1.0); TOTAL PROTEIN 5.1 GM/DL (6.4-8.2)
[2017-10-24] MEDS: RESP: ALBUTEROL 2.5 MG/IPRATROPIUM 0.5 MG NEB (SCH) INH ×2 (08:17→19:58)
[2017-10-24 08:18] LABS: BLOOD UREA NITROGEN 8 MG/DL (7-18)
[2017-10-24] MEDS: SODIUM CHLORIDE 0.9% FLUSH 10 ML FLUSH IV FLUSH SCH ×2 (09:00→19:41)
[2017-10-24] MEDS: PHYTONADIONE 5 MG/SWFI 5 ML ORAL SYR PO SCH (09:26)
[2017-10-24] MEDS: DOCUSATE SODIUM 50 MG/SENNA 8.6 MG TAB PO SCH ×2 (09:27→19:42)
[2017-10-24] MEDS: MULTIVITAMINS/MINERALS THERAPEUTIC TAB PO SCH (09:27)
[2017-10-24] MEDS: ACETAMINOPHEN 325 MG TAB PO PRN (09:27)
[2017-10-24] MEDS: THIAMINE HCL 100 MG TAB PO SCH (09:27)
[2017-10-24] MEDS: FOLIC ACID 1 MG TAB PO SCH (09:27)
[2017-10-24] MEDS ORDERED: DILTIAZEM HCL 30 MG TAB PO ONE (09:30)
--- NOTE | 2017-10-24 10:51 | RC ---
cc: Luis Dee MD DATE OF SERVICE: 10/23/2017 REFERRING PHYSICIAN: Dr. Armida Sims DIAGNOSIS: Probable metastatic disease, unknown primary at the present time. The patient with history of medullary carcinoma. STAGE: IV. CHIEF COMPLAINT: Generalized weakness. REASON FOR VISIT: The patient being evaluated for palliative radiotherapy treatment options. 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 It appears that the patient has progressively gotten weak to the point that he was not able to function. He has not been eating. He was found on the floor. Apparently, according to the records the ambulance was called and he was brought to the hospital, where he had a metastatic workup, which has detected brain lesions, as well as widespread metastatic disease within the body. I have discussed this case with Dr. Sims today. A consult has been placed for possible palliative radiotherapy treatment options. PAST MEDICAL HISTORY: As above, also history of hypothyroidism and hypertension. ALLERGIES: NO KNOWN DRUG ALLERGIES. FAMILY HISTORY: Father of some sort of lung carcinoma. SOCIAL HISTORY: The patient is a heavy drinker. He was a smoker until about 2 weeks ago. He smoked a pack of cigarettes to half a pack of cigarettes for over 20 years. REVIEW OF SYSTEMS: CONSTITUTIONAL: The patient has loss in appetite and weight in the last several months. He does not know much weight he has lost, but he states he is very fatigued. ALLERGIES: He has not had an allergic reaction recently. EYES: According to the patient, unremarkable. ENT: Unremarkable. NECK: Unremarkable. INTEGUMENTARY: Unremarkable. CARDIOVASCULAR: The patient denies any chest pains or clinical signs of MN. RESPIRATORY: The patient denies any hemoptysis, cough. Has shortness of breath while walking. GASTROINTESTINAL: Denies any rectal bleeding. No abdominal pain. GENITOURINARY: Unremarkable. MUSCULOSKELETAL: The patient denies any bone pain. NEUROLOGICAL: The patient denies any cognitive or motor function. No deficits. No clinical signs or symptoms of stroke. PSYCHIATRIC: Depression and suicidal thoughts. ENDOCRINE: Hypothyroidism. HEMATOLOGIC: Unremarkable. DERMATOLOGICAL : Unremarkable. PHYSICAL EXAMINATION: GENERAL: The patient is oriented x 3, not too cooperative and does not has too much strength to answer the questions. Appears to be in no distress. The patient is cachectic and with poor performance status. VITAL SIGNS: Pulse 90, respiratory rate 20, blood pressure 105/67, pulse oximetry 94% on room air. BACK: To deep palpation and percussion of posterior back, no pain was elicited within the joints or muscles. PULMONARY: Lungs were clear to auscultation with decreased ventilatory respiratory effort. HEART: Regular rate and rhythm without murmurs. NECK: Palpation of neck and bilateral supraclavicular areas are without lymph nodes. ABDOMEN: Palpation of the abdominal cavity reveals not hepatosplenomegaly. No pain elicited. EXTREMITIES: Lower extremities without edema. NEUROLOGIC: On neurologic examination, no apparent neurological deficits were detected. Cognitive functions were hard to determine. The patient is able to answer some things, but is very sleepy. No apparent motor function deficit. SKIN: No rash. LABORATORY DATA: Surgical pathology, cytology 10/23/2017 pending. RADIOLOGY: 1. CT angiogram 10/21/2017 reviewed. MRI for 10/21/2017. Multiple thin wall, enhancing cystic lesions identified within the white matter as described. Given the appearance of these lesions, infectious process such as multiple cerebral abscesses, sarcosis or lymphoma versus toxoplasma. Additional differential diagnoses include multiple glioblastoma or areas of demyelination. This imaging study has been independently reviewed by me. 2. CT of the abdomen and pelvis for 10/21/2017 reviewed. ASSESSMENT This is a 67-year-old white male with probable widespread metastatic disease, unknown primary at the present time versus thyroid carcinoma. The patient being evaluated for palliative radiotherapy treatment options. PLAN: I have discussed this case with Dr. Sims today. I reviewed her note from 10/21/2017. As discussed with her. I will present the case tomorrow at the tumor board to determine if the lesions in the brain are highly suspicious for metastatic disease versus an infectious process. The patient's performance status is very low. So, at this point, the patient and the family are trying to decide what to do and so I think he will be an appropriate hospice candidate with no further treatment. If palliative radiotherapy to the brain is the desire, I can deliver that, but honestly, I think the patient would probably be better served with just hospice care at this present time. The patient understood what was explained. If he decides to proceed forward with palliative radiotherapy, I can do that at any time. I left 2 of my business cards so the sister can call me, as she is the one that the patient wants making his medical decisions. Dr. Sims, thank you very much for referral of the patient and allowing me to participate in his care. Should you have any further questions or concerns, please do not hesitate to contact me. MD CINDY Cordova/TAMAR , 06:07 PM , 06:51 PM ELIZA
--- NOTE | 2017-10-24 11:01 | HHI.PR ---
Subjective Remarks This is a 67-year-old male with a PMH of Thyroid CA, Alcohol Abuse and Tobacco Abuse who was brought to the ER by EMS for weakness. Per patient, he's had difficulty "getting around" over the last 1-2 wks and states his friends got worried and called 911. Denies fever, chills, chest pain or SOB. On arrival, BP 126/85, HR 96, O2 sat 96% on RA, Temp 100.0. WBC 13.6. Chemistry essentially unremarkable. Lactic Acid 4.0. Lipase 918. INR 1.4. CXR moderate size right pleural effusion and right lower lung atelectasis versus consolidation. CTA Pulm with large central right lung mass extending into the mediastinum, moderate right sided pleural effusion, low density right lower lobe pulmonary consolidation, 6 mm left lung nodule, enlarged right paratracheal lymph nodes, no PE. CT Abdomen/Pelvis with findings highly suspicious for metastatic malignancy in the abdomen involving the liver, pancreas and adrenal glands. Pt made aware of findings, denies known h/o cancer besides Thyroid. S/p Rocephin/Zithro in ER. 10-[facility] HAVING US OF RIGHT CHEST TO SEE IF HAS A PLEURAL EFFUSION NO CURRENT COMPLAINTS DW RN AND PT AND CM NEEDS PT AND OT AM LABS 10-23 TO GO FOR THORACENTESIS LATER TODAY NEEDS TISSUE FOR DIAGNOSIS DW RN AND CM AND PT NEEDS PT AND OT BREATHING BETTER EATING WELL 10-24 HAD CHEST TUBE ON RIGHT PLACED WELL THORACENTESIS ON 10-23 DW RN AND PT AND CM CONSULT PALLIATIVE CARE AND HOSPICE POOR PROGNOSIS RADIATION ONCOLOGY FAVORED NOT GIVING RADIATION Objective Vitals Vital Signs Date Time Temp Pulse Resp B/P (MAP) Pulse Ox O2 Delivery O2 Flow Rate FiO2 10/24/17 09:18 98.6 111 18 99/72 (81) 91 10/24/17 08:20 95 21 10/24/17 07:00 89 10/24/17 04:40 97.6 88 17 106/66 (79) 92 10/24/17 01:10 77 10/23/17 23:57 97.8 95 20 90/68 (75) 95 10/23/17 21:42 94 Nasal Cannula 2.00 10/23/17 15:00 102 10/23/17 14:30 97.6 97 18 94/57 (69) 94 10/23/17 13:40 103 20 91/68 (76) 94 10/23/17 13:10 115 22 90/60 (70) 93 10/23/17 11:30 90 20 105/67 (80) 94 10/23/17 11:00 112 22 110/73 (85) 95 I/O 10/23/17 10/23/17 10/23/17 10/24/17 10/24/17 10/24/17 07:00 15:00 23:00 07:00 15:00 23:00 Intake Total 440 ml 1477 ml Output Total 600 ml 2100 ml 1050 ml 300 ml Balance -160 ml -2100 ml 427 ml -300 ml Intake Oral 240 ml 600 ml IV Total 200 ml 877 ml Output Urine Total 600 ml 150 ml Chest Tube Drainage Total 2100 ml 900 ml 300 ml # Voids 1 # Bowel Movements 0 1 Result Diagram: 10/24/17 0645 10/24/17 0645 Other Results Laboratory Tests Test 10/22/17 04:53 10/23/17 07:45 10/23/17 10:15 10/24/17 06:45 White Blood Count 9.1 TH/MM3 10.2 TH/MM3 10.7 TH/MM3 Red Blood Count 3.48 MIL/MM3 3.48 MIL/MM3 3.72 MIL/MM3 Hemoglobin 10.9 GM/DL 10.8 GM/DL 11.7 GM/DL Hematocrit 32.4 % 32.7 % 34.9 % Mean Corpuscular Volume 93.3 FL 94.1 FL 93.8 FL Mean Corpuscular Hemoglobin 31.4 PG 31.0 PG 31.5 PG Mean Corpuscular Hemoglobin Concent 33.7 % 32.9 % 33.6 % Red Cell Distribution Width 15.6 % 15.8 % 15.9 % Platelet Count 250 TH/MM3 253 TH/MM3 222 TH/MM3 Mean Platelet Volume 7.0 FL 7.2 FL 7.3 FL Neutrophils (%) (Auto) 78.3 % 79.8 % 82.2 % Lymphocytes (%) (Auto) 13.6 % 13.0 % 10.4 % Monocytes (%) (Auto) 7.0 % 6.2 % 6.6 % Eosinophils (%) (Auto) 0.9 % 0.6 % 0.6 % Basophils (%) (Auto) 0.2 % 0.4 % 0.2 % Neutrophils # (Auto) 7.1 TH/MM3 8.1 TH/MM3 8.8 TH/MM3 Lymphocytes # (Auto) 1.2 TH/MM3 1.3 TH/MM3 1.1 TH/MM3 Monocytes # (Auto) 0.6 TH/MM3 0.6 TH/MM3 0.7 TH/MM3 Eosinophils # (Auto) 0.1 TH/MM3 0.1 TH/MM3 0.1 TH/MM3 Basophils # (Auto) 0.0 TH/MM3 0.0 TH/MM3 0.0 TH/MM3 CBC Comment DIFF FINAL DIFF FINAL DIFF FINAL Differential Comment Blood Urea Nitrogen 8 MG/DL 9 MG/DL 8 MG/DL Creatinine 0.46 MG/DL 0.45 MG/DL 0.37 MG/DL Random Glucose 88 MG/DL 95 MG/DL 72 MG/DL Total Protein 5.3 GM/DL 5.3 GM/DL 5.1 GM/DL Albumin 1.3 GM/DL 1.4 GM/DL 1.3 GM/DL Calcium Level 7.8 MG/DL 7.6 MG/DL 7.5 MG/DL Alkaline Phosphatase 96 U/L 106 U/L 133 U/L Aspartate Amino Transf (AST/SGOT) 45 U/L 47 U/L 60 U/L Alanine Aminotransferase (ALT/SGPT) 14 U/L 15 U/L 18 U/L Total Bilirubin 0.7 MG/DL 0.7 MG/DL 0.7 MG/DL Sodium Level 141 MEQ/L 140 MEQ/L 140 MEQ/L Potassium Level 3.1 MEQ/L 4.2 MEQ/L 3.6 MEQ/L Chloride Level 105 MEQ/L 107 MEQ/L 107 MEQ/L Carbon Dioxide Level 26.8 MEQ/L 23.2 MEQ/L 23.8 MEQ/L Anion Gap 9 MEQ/L 10 MEQ/L 9 MEQ/L Estimat Glomerular Filtration Rate 184 ML/MIN 188 ML/MIN 236 ML/MIN Carcinoembryonic Antigen 2.1 NG/ML Phosphorus Level 1.9 MG/DL 1.6 MG/DL Magnesium Level 1.8 MG/DL 1.7 MG/DL Hemoglobin A1c 5.3 % Free Thyroxine 1.73 NG/DL Thyroid Stimulating Hormone 3rd Gen 0.088 uIU/ML Pleural Fluid WBC 478 /MM3 Pleural Fluid RBC 285 /MM3 Pleural Fluid Neutrophils 43 % Pleural Fluid Lymphocytes 50 % Pleural Fluid Monocytes 3 % Pleural Fluid Mesothelial Cells 4 % Hematology Comments Imaging Last Impressions Chest X-Ray 10/24/17 0000 Signed Impressions: Service Date/Time: Tuesday, October 24, 2017 03:42 - CONCLUSION: 1. Right- sided chest tube without definite pneumothorax. 2. Cardiomegaly with pulmonary vascular congestion and interstitial edema. Hebert Gonzalez MD Chest Tube Insertion 10/23/17 1209 Signed Impressions: Service Date/Time: Monday, October 23, 2017 12:39 - CONCLUSION: Uncomplicated right chest tube placement as above. Roe Morel MD FACR Thoracentesis Ultrasound 10/23/17 0000 Signed Impressions: Service Date/Time: Monday, October 23, 2017 10:24 - CONCLUSION: Uncomplicated ultrasound right guided thoracentesis. Significant fluid remains. Roe Morel MD FACR CT Angiography 10/21/17 0000 Signed Impressions: Service Date/Time: Saturday, October 21, 2017 02:52 - CONCLUSION: 1. Large central right lung mass extending into the mediastinum. 2. Moderate-sized right pleural effusion. 3. Low density right lower lobe pulmonary consolidation indicating drowned lung. 4. 6 mm left lung nodule. 5. Lung mass extends into the subcarinal region. Enlarged right paratracheal lymph node. 6. No evidence of pulmonary embolus. Efren Farnsworth MD Brain MRI 10/21/17 Signed Impressions: Service Date/Time: Saturday, October 21, 2017 08:39 - CONCLUSION: Multiple thin-walled rim enhancing cystic lesions identified within the white matter as described above. Given the appearance of these lesions this favors infectious process such as multiple cerebral abscesses, neurocysticercosis or lymphoma versus toxoplasma in the setting of immunocompromise patient. Additional differential diagnosis includes multiple glioblastomas or areas of tumefactive demyelination.. Ely Golden MD Abdomen/Pelvis CT 10/21/17 0000 Signed Impressions: Service Date/Time: Saturday, October 21, 2017 02:52 - CONCLUSION: 1. Findings highly suspicious for metastatic malignancy in the abdomen involving the liver , pancreas, and adrenal glands. Liver masses appear minimal to CT-guided biopsy. 2. Small moderate free fluid in the pelvis. 3. Nonspecific heterogeneous appearance of the prostate with multiple areas of decreased enhancement. 4. Diffuse atherosclerotic disease with abdominal aortic aneurysm and aortoiliac endograft. Fem-fem arterial bypass graft. The fem-fem graft is not opacified. Left common iliac and external iliac arteries also do not opacify. Efren Farnsworth MD Objective Remarks GENERAL: Awake alert and oriented 2 talkative and cooperative SKIN: Warm and dry. HEAD: Atraumatic. Normocephalic. EYES: Pupils equal and round. No scleral icterus. No injection or drainage. Extraocular muscles intact ENT: No nasal bleeding or discharge. Mucous membranes pink and moist. Tongue is midline NECK: Trachea midline. No JVD. Supple CARDIOVASCULAR: Regular rate and rhythm. S1-S2 no S3 or S4 RESPIRATORY: No accessory muscle use. FEW RHONCHI BL Breath sounds equal bilaterally. Decreased breath sounds on the right GASTROINTESTINAL: Abdomen soft, non-tender, nondistended. Hepatic and splenic margins not palpable. MUSCULOSKELETAL: Extremities without clubbing, cyanosis, or edema. No obvious deformities. NEUROLOGICAL: Awake and alert. No obvious cranial nerve deficits. Motor grossly within normal limits. 4 out of 5 muscle strength in the arms and legs. Normal speech. PSYCHIATRIC: INAppropriate mood and affect; insight and judgment ABnormal. Procedures RIGHT SIDE THORACENTESIS BY IR 4-9 RIGHT SIDE CHEST TUBE BY IR 4-9 Medications and IVs Current Medications Sodium Chloride 1,000 ml @ 1,000 mls/hr Q1H ONCE IV Last administered on at 00:37; Start 10/20/17 at 23:56; Stop 10/21/17 at 00:55; Status DC Sodium Chloride 1,000 ml @ 999 mls/hr BOLUS ONCE IV Last administered on at 01:26; Start 10/21/17 at 00:00; Stop 10/21/17 at 01:00; Status DC Labetalol HCl (Trandate Inj) 10 mg ONCE ONCE IV PUSH Last administered on at 00:37; Start 10/21/17 at 00:00; Stop 10/21/17 at 00:01; Status DC Ceftriaxone Sodium 1000 mg/ Sodium Chloride 100 ml @ 200 mls/hr ONCE ONCE IV Last administered on 10/21/17at 02:04; Start 10/21/17 at 01:45; Stop 10/21/17 at 02: 14; Status DC Azithromycin 500 mg/Sodium Chloride 250 ml @ 250 mls/hr ONCE ONCE IV Last administered on 10/21/17at 04:05; Start 10/21/17 at 01:45; Stop 10/21/17 at 02:44; Status DC Iohexol (Omnipaque 350 Inj) 100 ml STK-MED ONCE IVCONTRAST Last administered on 10/21/17at 03:15; Start 10/21/17 at 03:15; Stop 10/21/17 at 03:16; Status DC Ceftriaxone Sodium 1000 mg/ Sodium Chloride 100 ml @ 200 mls/hr Q24H IV Last administered on 10/24/17at 06:32; Start 10/22/17 at 06:00 Azithromycin 500 mg/Sodium Chloride 250 ml @ 250 mls/hr Q24H IV Last administered on 10/24/17at 06:28; Start 10/22/17 at 06:00 Albuterol/ Ipratropium (Duoneb Neb) 1 ampule Q4HR NEB PRN NEB SOB/WHEEZING; Start 10/21/17 at 04:15 Sodium Chloride 1,000 ml @ 100 mls/hr Q10H IV Last administered on 10/24/17at 09:46; Start 10/21/17 at 04:06 Sodium Chloride (NS Flush) 2 ml UNSCH PRN IV FLUSH FLUSH AFTER USING IV ACCESS ; Start 10/21/17 at 04:15; Stop 10/22/17 at 11:15; Status DC Sodium Chloride (NS Flush) 2 ml BID IV FLUSH Last administered on 10/22/17at 09: 28; Start 10/21/17 at 09:00; Stop 10/22/17 at 11:15; Status DC Ondansetron HCl (Zofran Inj) 4 mg Q6H PRN IVP NAUSEA OR VOMITING; Start at 04:15; Stop 10/22/17 at 11:15; Status DC Acetaminophen (Tylenol) 650 mg Q6H PRN PO FEVER/PAIN SCALE 1 TO 2; Start at 04:15; Stop 10/22/17 at 11:25; Status DC Morphine Sulfate (Morphine Inj) 2 mg Q3H PRN IV PUSH Pain 6-10; Start 10/21/17 at 04:15; Stop 10/22/17 at 11:23; Status DC Oxycodone HCl (Roxicodone) 5 mg Q4H PRN PO PAIN SCALE 3 TO 5; Start 10/21/17 at 04:15; Stop 10/22/17 at 11:24; Status DC Senna/Docusate Sodium (Debra-Colace) 1 tab BID PO Last administered on 10/22/17at 09:06; Start 10/21/17 at 09:00; Stop 10/22/17 at 11:15; Status DC Magnesium Hydroxide (Milk Of Magnesia Liq) 30 ml Q12H PRN PO Mild constipation ; Start 10/21/17 at 04:15; Stop 10/22/17 at 11:15; Status DC Sennosides (Senokot) 17.2 mg Q12H PRN PO Moderate constipation; Start 10/21/17 at 04:15; Stop 10/22/17 at 11:15; Status DC Bisacodyl (Dulcolax Supp) 10 mg DAILY PRN RECTAL SEVERE CONSITIPATION; Start at 04:15; Stop 10/22/17 at 11:15; Status DC Lactulose (Lactulose Liq) 30 ml DAILY PRN PO SEVERE CONSITIPATION; Start at 04:15; Stop 10/22/17 at 11:15; Status DC Folic Acid (Folate) 1 mg DAILY PO Last administered on 10/22/17at 09:06; Start at 09:00; Stop 10/22/17 at 11:23; Status DC Thiamine HCl (Vitamin B1) 100 mg DAILY PO Last administered on 10/22/17at 09:06; Start 10/21/17 at 09:00; Stop 10/22/17 at 11:23; Status DC Multivitamins/ Minerals Therapeutic (Theragran M Tab) 1 tab DAILY PO Last administered on 10/22/17at 09:06; Start 10/21/17 at 09:00; Stop 10/22/17 at 11:23; Status DC Flumazenil (Romazicon Inj) 0.2 mg Q1M PRN IV PUSH SEE LABEL COMMENTS; Start 10/21/17 at 04:45; Stop 10/22/17 at 11:15; Status DC Lorazepam (Ativan) 1 mg Q4H PRN PO [facility] 8 - 10; Start 10/21/17 at 04:45; Stop at 11:15; Status DC Lorazepam (Ativan Inj) 1 mg Q4H PRN IV PUSH [facility] 8 - 10; Start 10/21/17 at 04:45 ; Stop 10/22/17 at 11:15; Status DC Lorazepam (Ativan) 2 mg Q2H PRN PO [facility] 11-14; Start 10/21/17 at 04:45; Stop 10/22/17 at 11:15; Status DC Lorazepam (Ativan Inj) 2 mg Q2H PRN IV PUSH CI[facility] 11-14; Start 10/21/17 at 04:45 ; Stop 10/22/17 at 11:15; Status DC Lorazepam (Ativan Inj) 2 mg Q1H PRN IV PUSH CIWA 15-20; Start 10/21/17 at 04:45 ; Stop 10/22/17 at 11:15; Status DC Lorazepam (Ativan Inj) 2 mg Q15M PRN IV PUSH CIWA > 20; Start 10/21/17 at 04:45 ; Stop 10/22/17 at 11:15; Status DC Haloperidol Lactate (Haldol Inj) 2 mg Q15M PRN IM SEE LABEL COMMENTS; Start 10/21/17 at 04:45; Stop 10/22/17 at 11:15; Status DC Gadodiamide (Omniscan Pf Inj) 15 ml STK-MED ONCE IVCONTRAST Last administered on 10/21/17at 08:48; Start 10/21/17 at 08:48; Stop 10/21/17 at 08:49; Status DC Albuterol/ Ipratropium (Duoneb Neb) 1 ampule BID NEB INH Last administered on 10/24/17at 08:17; Start 10/21/17 at 20:00 Phytonadione (Mephyton Liq) 5 mg DAILY PO Last administered on 10/24/17at 09:26 ; Start 10/22/17 at 09:00 Sodium Chloride 1,000 ml @ 999 mls/hr BOLUS ONCE IV Last administered on at 20:33; Start 10/21/17 at 20:30; Stop 10/21/17 at 21:30; Status DC Sodium Chloride (NS Flush) 2 ml UNSCH PRN IV FLUSH FLUSH AFTER USING IV ACCESS ; Start 10/22/17 at 10:15 Sodium Chloride (NS Flush) 2 ml BID IV FLUSH Last administered on 10/23/17at 22: 57; Start 10/22/17 at 21:00 Folic Acid (Folate) 1 mg DAILY PO Last administered on 10/24/17at 09:27; Start 10/23/17 at 09:00; Stop 10/27/17 at 08:59 Thiamine HCl (Vitamin B1) 100 mg DAILY PO Last administered on 10/24/17at 09:27 ; Start 10/23/17 at 09:00 Multivitamins/ Minerals Therapeutic (Theragran M Tab) 1 tab DAILY PO Last administered on 10/24/17at 09:27; Start 10/23/17 at 09:00; Stop 10/27/17 at 08:59 Ondansetron HCl (Zofran Inj) 4 mg Q6H PRN IV PUSH NAUSEA OR VOMITING; Start 10/22/17 at 10:15; Stop 10/22/17 at 11:15; Status DC Clonidine (Catapres) 0.1 mg Q6H PRN PO SEE LABEL COMMENTS; Start 10/22/17 at 10: 15 Flumazenil (Romazicon Inj) 0.2 mg Q1M PRN IV PUSH SEE LABEL COMMENTS; Start 10/22/17 at 10:15; Stop 10/22/17 at 11:15; Status DC Lorazepam (Ativan) 1 mg Q4H PRN PO CI[facility] 8 - 10; Start 10/22/17 at 10:15 Lorazepam (Ativan Inj) 1 mg Q4H PRN IV PUSH CI[facility] 8 - 10; Start 10/22/17 at 10:15 Lorazepam (Ativan) 2 mg Q2H PRN PO CIWA 11-14; Start 10/22/17 at 10:15 Lorazepam (Ativan Inj) 2 mg Q2H PRN IV PUSH CIWA 11-14; Start 10/22/17 at 10:15 Lorazepam (Ativan Inj) 2 mg Q1H PRN IV PUSH CIWA 15-20; Start 10/22/17 at 10:15 Lorazepam (Ativan Inj) 2 mg Q15M PRN IV PUSH CIWA > 20; Start 10/22/17 at 10:15 ; Stop 10/22/17 at 11:15; Status DC Haloperidol Lactate (Haldol Inj) 2 mg Q15M PRN IM SEE LABEL COMMENTS; Start 10/22/17 at 10:15 Acetaminophen (Tylenol) 650 mg Q4H PRN PO TEMP > 100.4; Start 10/22/17 at 10:15 Ondansetron HCl (Zofran Inj) 4 mg Q6H PRN IVP NAUSEA OR VOMITING; Start at 10:15 Metoclopramide HCl (Reglan Inj) 5 mg Q6H PRN IV PUSH NAUSEA OR VOMITING; Start 10/22/17 at 10:15 Acetaminophen (Tylenol) 650 mg Q6H PRN PO PAIN SCALE 1 TO 2 Last administered on 10/24/17at 09:27; Start 10/22/17 at 10:15 Oxycodone/ Acetaminophen (Percocet 5-325 Mg) 1 tab Q6H PRN PO PAIN SCALE 3 TO 5; Start 10/22/17 at 10:15 Oxycodone/ Acetaminophen (Percocet 10-325 Mg) 1 tab Q6H PRN PO PAIN SCALE 6 TO 10; Start 10/22/17 at 10:15 Morphine Sulfate (Morphine Inj) 2 mg Q3H PRN IV PUSH Pain 3-5; if unable to take PO; Start 10/22/17 at 10:15 Morphine Sulfate (Morphine Inj) 4 mg Q3H PRN IV PUSH Pain 6-10;if unable to take PO; Start 10/22/17 at 10:15 Morphine Sulfate (Morphine Inj) 4 mg Q3H PRN IV PUSH BREAKTHROUGH PAIN; Start 10/22/17 at 10:15 Naloxone HCl (Narcan Inj) 0.4 mg UNSCH PRN IV PUSH SEE LABEL COMMENTS; Start at 10:15 Senna/Docusate Sodium (Debra-Colace) 1 tab BID PO Last administered on at 09:27; Start 10/22/17 at 21:00 Magnesium Hydroxide (Milk Of Magnesia Liq) 30 ml Q12H PRN PO Mild constipation ; Start 10/22/17 at 10:15 Sennosides (Senokot) 17.2 mg Q12H PRN PO Moderate constipation; Start 10/22/17 at 10:15 Bisacodyl (Dulcolax Supp) 10 mg DAILY PRN RECTAL SEVERE CONSITIPATION; Start at 10:15 Lactulose (Lactulose Liq) 30 ml DAILY PRN PO SEVERE CONSITIPATION Last administered on 10/23/17at 14:40; Start 10/22/17 at 10:15 Flumazenil (Romazicon Inj) 0.2 mg Q1M PRN IV PUSH SEE LABEL COMMENTS; Start 10/22/17 at 10:15 Lorazepam (Ativan Inj) 2 mg Q15M PRN IV PUSH CIWA > 20; Start 10/22/17 at 10:15 Diltiazem HCl (Cardizem Inj) 10 mg ONCE ONCE IV Last administered on 10/22/17at 12:30; Start 10/22/17 at 12:30; Stop 10/22/17 at 12:31; Status DC Diltiazem HCl (Cardizem) 60 mg Q6HR PO Last administered on 10/23/17at 14:40; Start 10/22/17 at 12:30 Diltiazem HCl (Cardizem Inj) 50 mg STK-MED ONCE .ROUTE ; Start 10/22/17 at 12:25 ; Stop 10/22/17 at 12:26; Status DC Potassium Chloride 100 ml @ 50 mls/hr Q2H IV Last administered on 10/22/17at 01: 45; Start 10/22/17 at 15:00; Stop 10/23/17 at 00:59; Status DC Fentanyl Citrate (fentaNYL INJ) 250 mcg STK-MED ONCE .ROUTE ; Start 10/23/17 at 12:42; Stop 10/23/17 at 12:43; Status DC Lidocaine HCl (Xylocaine-Mpf 1% Inj) 30 ml STK-MED ONCE .ROUTE Last administered on 10/23/17at 10:12; Start 10/23/17 at 15:06; Stop 10/23/17 at 15:07; Status DC Diltiazem HCl (Cardizem) 30 mg ONCE ONCE PO Last administered on 10/24/17at 09: 46; Start 10/24/17 at 09:30; Stop 10/24/17 at 09:38; Status DC A/P Problem List: (1) Lung mass ICD Code: R91.8 - Other nonspecific abnormal finding of lung field (2) PNA (pneumonia) ICD Code: J18.9 - Pneumonia, unspecified organism (3) Pleural effusion ICD Code: J90 - Pleural effusion, not elsewhere classified (4) Lactic acidosis ICD Code: E87.2 - Acidosis Assessment and Plan 1. Lung Mass: CTA Pulm w/ large central right lung mass extending to mediastinum w/ associated lymphadenopathy, images reviewed by me. CT Abd/ Pelvis w/ extensive metastatic disease to liver, pancreas and adrenal glands, images reviewed by me. +tobacco abuse. Consult Oncology for further evaluation. Will obtain MRI Brain to eval for possible LOOM STARTER mets. Consult Pulmonology for eval/bronchoscopy. Pt made aware of findings, he understands and wishes to proceed w/ further treatment/intervention. POSSIBLE BRAIN METS PER SCANS- RADIATION CONSULT--RIGHT SIDE CHEST TUBE PLACED 10-23, HAD THORACENTESIS ON 10-23 2. Pleural Effusion: moderate right-sided pleural effusion on CTA Pulm, consult Pulmonology/IR for thoracentesis. O2 sat normal, will continue to monitor. ONCOLOGY CONSULTED --HAD CHEST TUBE ON RIGHT PLACED ON 10-23 HAD THORACENTESIS ON RIGHT ON 10-23 3. PNA: CXR w/ RLL consolidation, also seen on CTA Pulm, images reviewed by me. S/p Rocephin/Zithro in ER, will continue w/ IV Abx, DuoNeb prn. VS LUNG CANCER 4. Lactic Acidosis: Lactate 4.0, likely secondary to infection/early sepsis. Follow up cultures, IVF for hydration, repeat Lactic Acid 5. Tobacco Abuse: Pt counselled. Ativan/NicoDerm prn if needed. 6. DVT Prophylaxis: SCD/Teds. 7. Social work for d/c planning as needed. PT AND OT TO EVAL AND TREAT AM LABS GUARDED PROGNOSIS NEED TISSUE FOR DIAGNOSIS PROBABLE HOSPICE CANDIDATE Discharge Planning PENDING CLEARANCE BY ALL Roe Rees DO Oct 24, 2017 11:01
--- NOTE | 2017-10-24 20:40 | PD.ONC.PN ---
Subjective Subjective Remarks No active complaints. Tolerating breathing treatment. Met with palliative care, plans meeting with hospice tomorrow. Noted consult in place. Objective Data Date Time Temp Pulse Resp B/P (MAP) Pulse Ox O2 Delivery O2 Flow Rate FiO2 10/24/17 20:00 93 Nasal Cannula 3.00 10/24/17 19:46 98.0 96 18 96/63 (74) 93 10/24/17 15:17 98.1 100 18 93/60 (71) 92 Automatic Cuff 10/24/17 15:00 91 10/24/17 11:06 98.1 84 18 89/60 (70) 92 10/24/17 11:00 109 10/24/17 09:18 98.6 111 18 99/72 (81) 91 10/24/17 08:20 95 21 10/24/17 07:00 89 10/24/17 04:40 97.6 88 17 106/66 (79) 92 10/24/17 01:10 77 10/23/17 23:57 97.8 95 20 90/68 (75) 95 10/23/17 21:42 94 Nasal Cannula 2.00 10/24/17 10/24/17 10/24/17 07:00 15:00 23:00 Intake Total 820 ml Output Total 300 ml 800 ml Balance -300 ml 20 ml Result Diagram: 10/24/1745 10/24/1745 Laboratory Results Laboratory Tests Test 10/24/17 06:45 White Blood Count 10.7 TH/MM3 Red Blood Count 3.72 MIL/MM3 Hemoglobin 11.7 GM/DL Hematocrit 34.9 % Mean Corpuscular Volume 93.8 FL Mean Corpuscular Hemoglobin 31.5 PG Mean Corpuscular Hemoglobin Concent 33.6 % Red Cell Distribution Width 15.9 % Platelet Count 222 TH/MM3 Mean Platelet Volume 7.3 FL Neutrophils (%) (Auto) 82.2 % Lymphocytes (%) (Auto) 10.4 % Monocytes (%) (Auto) 6.6 % Eosinophils (%) (Auto) 0.6 % Basophils (%) (Auto) 0.2 % Neutrophils # (Auto) 8.8 TH/MM3 Lymphocytes # (Auto) 1.1 TH/MM3 Monocytes # (Auto) 0.7 TH/MM3 Eosinophils # (Auto) 0.1 TH/MM3 Basophils # (Auto) 0.0 TH/MM3 CBC Comment DIFF FINAL Differential Comment Hematology Comments Blood Urea Nitrogen 8 MG/DL Creatinine 0.37 MG/DL Random Glucose 72 MG/DL Total Protein 5.1 GM/DL Albumin 1.3 GM/DL Calcium Level 7.5 MG/DL Phosphorus Level 1.6 MG/DL Magnesium Level 1.7 MG/DL Alkaline Phosphatase 133 U/L Aspartate Amino Transf (AST/SGOT) 60 U/L Alanine Aminotransferase (ALT/SGPT) 18 U/L Total Bilirubin 0.7 MG/DL Sodium Level 140 MEQ/L Potassium Level 3.6 MEQ/L Chloride Level 107 MEQ/L Carbon Dioxide Level 23.8 MEQ/L Anion Gap 9 MEQ/L Estimat Glomerular Filtration Rate 236 ML/MIN Imaging Studies Last 24 hours Impressions Chest X-Ray 10/24/17 0000 Signed Impressions: Service Date/Time: Tuesday, October 24, 2017 03:42 - CONCLUSION: 1. Right- sided chest tube without definite pneumothorax. 2. Cardiomegaly with pulmonary vascular congestion and interstitial edema. Hebert Gonzalez MD Administered Medications Medications (Trade) Dose Ordered Sig/[place] Route PRN Reason Start Time Stop Time Status Last Admin Dose Admin Ceftriaxone Sodium 1000 mg/ Sodium Chloride 100 ml @ 200 mls/hr Q24H IV 10/22/17 06:00 10/24/17 06:32 Azithromycin 500 mg/Sodium Chloride 250 ml @ 250 mls/hr Q24H IV 10/22/17 06:00 10/24/17 06:28 Sodium Chloride 1,000 ml @ 100 mls/hr Q10H IV 10/21/17 04:06 10/24/17 19:40 Albuterol/ Ipratropium (Duoneb Neb) 1 ampule BID NEB INH 10/21/17 20:00 10/24/17 19:58 Phytonadione (Mephyton Liq) 5 mg DAILY PO 10/22/17 09:00 10/24/17 09:26 Sodium Chloride (NS Flush) 2 ml BID IV FLUSH 10/22/17 21:00 10/24/17 19:41 Folic Acid (Folate) 1 mg DAILY PO 10/23/17 09:00 10/27/17 08:59 10/24/17 09:27 Thiamine HCl (Vitamin B1) 100 mg DAILY PO 10/23/17 09:00 10/24/17 09:27 Multivitamins/ Minerals Therapeutic (Theragran M Tab) 1 tab DAILY PO 10/23/17 09:00 10/27/17 08:59 10/24/17 09:27 Acetaminophen (Tylenol) 650 mg Q6H PRN PO PAIN SCALE 1 TO 2 10/22/17 10:15 10/24/17 09:27 Senna/Docusate Sodium (Debra-Colace) 1 tab BID PO 10/22/17 21:00 10/24/17 09:27 Lactulose (Lactulose Liq) 30 ml DAILY PRN PO SEVERE CONSITIPATION 10/22/17 10:15 10/23/17 14:40 Diltiazem HCl (Cardizem) 60 mg Q6HR PO 10/22/17 12:30 10/24/17 17:51 Objective Remarks GENERAL: Chronically ill appearing gentleman. Lying on R side. On 3L O2 via NC SKIN: Warm and dry. HEAD: Normocephalic. EYES: No injection or drainage. NECK: Supple, trachea midline. CARDIOVASCULAR: Regular rate and rhythm RESPIRATORY:diminished at right base, occasional rhonchi. GASTROINTESTINAL: Abdomen soft, non-tender, nondistended. EXTREMITIES: No cyanosis, or edema. NEUROLOGICAL: awake and alert. normal speech. Assessment/Plan Problem List: (1) Metastatic disease ICD Codes: C79.9 - Secondary malignant neoplasm of unspecified site Status: Acute Plan: 10/24/17. Widely metastatic disease, [employer] mets, unable to offer systemic palliative therapy due to poor KPS. Risks outweigh benefits. Furthermore, patient preferring to proceed with comfort measures. --CT abdomen pelvis shows metastatic malignancy involving the liver, pancreas and adrenal glands. 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 (2) Pleural effusion ICD Codes: J90 - Pleural effusion, not elsewhere classified Status: Acute Plan: 10/24/17. Cytology pending. Chest tube in place- consult IR for removal. Consider switch to pleurex catheter if recurrent symptomatic effusion. --Patient likely has second primary lung cancer with mets --Thoracentesis plan for 10/23 (3) Generalized weakness ICD Codes: R53.1 - Weakness Status: Acute Plan: 10/24/17. Systemic ill effects of cancer, compounded by [employer]IC[employer] mets. --Consult physical therapy Assessment 67y/o male with h/o thyroid cancer, admitted with metastatic disease of unknown primary. Plan 1. Pending transfer to hospice, [facility] 2. Pending removal chest tube- cxray without definite pneumothorax. Armida Sims MD Oct 24, 2017 20:40
[2017-10-25] VITALS (23 sets, daily range): BP systolic 87–115; BP diastolic 54–72; PULSE 75–97; RESP 16–20; TEMP 97.7–98.2; O2SAT 91–97
[2017-10-25] MEDS: DILTIAZEM HCL 60 MG TAB PO SCH ×4 (00:23→18:38)
[2017-10-25] MEDS: SODIUM CHLOR 0.9% 1000 ML INJ 1,000 ML IV SCH ×2 (05:46→21:33)
[2017-10-25] MEDS: cefTRIAXone INJ 1,000 MG in SODIUM CHLORIDE 0.9% INJ 100 ML IV SCH (05:48)
[2017-10-25] MEDS: AZITHROMYCIN INJ 500 MG in SODIUM CHLOR 0.9% 250 ML INJ 250 ML IV SCH (06:31)
[2017-10-25 08:00] LABS: AUTOMATED NEUTROPHIL # 9.2 TH/MM3 (1.8-7.7); BASOPHIL % 0.2 % (0.0-2.0); EOSINOPHIL # 0.1 TH/MM3 (0-0.4); EOSINOPHIL % 0.9 % (0.0-4.0); HEMATOCRIT 31.5 % (39.0-51.0); HEMOGLOBIN 10.5 GM/DL (13.0-17.0); LYMPH % 10.6 % (9.0-44.0); LYMPHOCYTE # 1.2 TH/MM3 (1.0-4.8); MEAN CORPUSCULAR HEMOGLOBIN 31.3 PG (27.0-34.0); MEAN CORPUSCULAR HGB CONC 33.3 % (32.0-36.0); MEAN PLATELET VOLUME 7.1 FL (7.0-11.0); MONO % 6.5 % (0.0-8.0); MONOCYTE # 0.7 TH/MM3 (0-0.9); NEUT % 81.8 % (16.0-70.0); PLATELET COUNT 205 TH/MM3 (150-450); RED BLOOD COUNT 3.35 MIL/MM3 (4.50-5.90); RED CELL DISTRIBUTION WIDTH 15.8 % (11.6-17.2); WHITE BLOOD COUNT 11.2 TH/MM3 (4.0-11.0)
[2017-10-25 08:55] LABS: ALBUMIN 1.2 GM/DL (3.4-5.0); BICARBONATE 23.4 MEQ/L (21.0-32.0); CALCIUM 7.3 MG/DL (8.5-10.1); CALCIUM-PROTEIN CORRECTED 8.7 MG/DL (8.5-10.1); CREATININE 0.37 MG/DL (0.60-1.30); MAGNESIUM 1.6 MG/DL (1.5-2.5); PHOSPHORUS 2.1 MG/DL (2.5-4.9); TOTAL BILIRUBIN ADULT 0.6 MG/DL (0.2-1.0); TOTAL PROTEIN 4.6 GM/DL (6.4-8.2)
[2017-10-25] MEDS: FOLIC ACID 1 MG TAB PO SCH (09:00)
[2017-10-25] MEDS: MULTIVITAMINS/MINERALS THERAPEUTIC TAB PO SCH (09:00)
[2017-10-25] MEDS: THIAMINE HCL 100 MG TAB PO SCH (09:00)
[2017-10-25] MEDS: PHYTONADIONE 5 MG/SWFI 5 ML ORAL SYR PO SCH (09:00)
[2017-10-25] MEDS: DOCUSATE SODIUM 50 MG/SENNA 8.6 MG TAB PO SCH ×2 (09:00→21:30)
[2017-10-25] MEDS: RESP: ALBUTEROL 2.5 MG/IPRATROPIUM 0.5 MG NEB (SCH) INH ×2 (09:36→19:58)
--- NOTE | 2017-10-25 10:38 | HHI.PR ---
Subjective Remarks This is a 67-year-old male with a PMH of Thyroid CA, Alcohol Abuse and Tobacco Abuse who was brought to the ER by EMS for weakness. Per patient, he's had difficulty "getting around" over the last 1-2 wks and states his friends got worried and called 911. Denies fever, chills, chest pain or SOB. On arrival, BP 126/85, HR 96, O2 sat 96% on RA, Temp 100.0. WBC 13.6. Chemistry essentially unremarkable. Lactic Acid 4.0. Lipase 918. INR 1.4. CXR moderate size right pleural effusion and right lower lung atelectasis versus consolidation. CTA Pulm with large central right lung mass extending into the mediastinum, moderate right sided pleural effusion, low density right lower lobe pulmonary consolidation, 6 mm left lung nodule, enlarged right paratracheal lymph nodes, no PE. CT Abdomen/Pelvis with findings highly suspicious for metastatic malignancy in the abdomen involving the liver, pancreas and adrenal glands. Pt made aware of findings, denies known h/o cancer besides Thyroid. S/p Rocephin/Zithro in ER. 10-22 transferred to [facility] FROM ER HAVING US OF RIGHT CHEST TO SEE IF HAS A PLEURAL EFFUSION NO CURRENT COMPLAINTS DW RN AND PT AND CM NEEDS PT AND OT AM LABS 10-23 TO GO FOR THORACENTESIS LATER TODAY NEEDS TISSUE FOR DIAGNOSIS DW RN AND CM AND PT NEEDS PT AND OT BREATHING BETTER EATING WELL 10-24 HAD CHEST TUBE ON RIGHT PLACED WELL THORACENTESIS ON 10-23 DW RN AND PT AND CM CONSULT PALLIATIVE CARE AND HOSPICE POOR PROGNOSIS RADIATION ONCOLOGY FAVORED NOT GIVING RADIATION 10-25 TO HAVE CHEST TUBE REMOVED AND PLEURX PLACED BY IR POSSIBLY HOME WITH HOSPICE LATER TODAY AND OR [facility] DW RN AND PT AND CM Objective Vitals Vital Signs Date Time Temp Pulse Resp B/P (MAP) Pulse Ox O2 Delivery O2 Flow Rate FiO2 10/25/17 09:40 94 Nasal Cannula 3.00 10/25/17 08:13 98.2 84 18 87/56 (66) 94 10/25/17 06:03 97 10/25/17 05:52 100/68 (79) 10/25/17 05:00 86 10/25/17 04:00 77 10/25/17 03:21 97.8 89 18 91/64 (73) 94 10/25/17 03:08 80 4/11/18 02:03 83 10/25/17 01:02 85 10/25/17 00:18 98.1 86 103/66 (78) 97 10/25/17 00:04 83 10/24/17 23:01 81 10/24/17 22:00 87 10/24/17 21:01 79 10/24/17 20:03 81 10/24/17 20:00 93 Nasal Cannula 3.00 10/24/17 19:46 98.0 96 18 96/63 (74) 93 10/24/17 19:01 98 10/24/17 15:17 98.1 100 18 93/60 (71) 92 Automatic Cuff 10/24/17 15:00 91 10/24/17 11:06 98.1 84 18 89/60 (70) 92 10/24/17 11:00 109 I/O 10/24/17 10/24/17 10/24/17 10/25/17 10/25/17 10/25/17 07:00 15:00 23:00 07:00 15:00 23:00 Intake Total 1820 ml 1340 ml Output Total 300 ml 800 ml 940 ml Balance -300 ml 1020 ml 400 ml Intake Oral 820 ml 240 ml IV Total 1000 ml 1100 ml Output Urine Total 250 ml 350 ml Chest Tube Drainage Total 300 ml 550 ml 590 ml # Voids 1 # Bowel Movements 1 0 Result Diagram: 10/25/17 0724 10/25/17 0727 Other Results Laboratory Tests Test 10/23/17 07:45 10/23/17 10:15 10/24/17 06:45 10/25/17 07:24 White Blood Count 10.2 TH/MM3 10.7 TH/MM3 11.2 TH/MM3 Red Blood Count 3.48 MIL/MM3 3.72 MIL/MM3 3.35 MIL/MM3 Hemoglobin 10.8 GM/DL 11.7 GM/DL 10.5 GM/DL Hematocrit 32.7 % 34.9 % 31.5 % Mean Corpuscular Volume 94.1 FL 93.8 FL 94.0 FL Mean Corpuscular Hemoglobin 31.0 PG 31.5 PG 31.3 PG Mean Corpuscular Hemoglobin Concent 32.9 % 33.6 % 33.3 % Red Cell Distribution Width 15.8 % 15.9 % 15.8 % Platelet Count 253 TH/MM3 222 TH/MM3 205 TH/MM3 Mean Platelet Volume 7.2 FL 7.3 FL 7.1 FL Neutrophils (%) (Auto) 79.8 % 82.2 % 81.8 % Lymphocytes (%) (Auto) 13.0 % 10.4 % 10.6 % Monocytes (%) (Auto) 6.2 % 6.6 % 6.5 % Eosinophils (%) (Auto) 0.6 % 0.6 % 0.9 % Basophils (%) (Auto) 0.4 % 0.2 % 0.2 % Neutrophils # (Auto) 8.1 TH/MM3 8.8 TH/MM3 9.2 TH/MM3 Lymphocytes # (Auto) 1.3 TH/MM3 1.1 TH/MM3 1.2 TH/MM3 Monocytes # (Auto) 0.6 TH/MM3 0.7 TH/MM3 0.7 TH/MM3 Eosinophils # (Auto) 0.1 TH/MM3 0.1 TH/MM3 0.1 TH/MM3 Basophils # (Auto) 0.0 TH/MM3 0.0 TH/MM3 0.0 TH/MM3 CBC Comment DIFF FINAL DIFF FINAL DIFF FINAL Differential Comment Blood Urea Nitrogen 9 MG/DL 8 MG/DL Creatinine 0.45 MG/DL 0.37 MG/DL Random Glucose 95 MG/DL 72 MG/DL Total Protein 5.3 GM/DL 5.1 GM/DL Albumin 1.4 GM/DL 1.3 GM/DL Calcium Level 7.6 MG/DL 7.5 MG/DL Phosphorus Level 1.9 MG/DL 1.6 MG/DL Magnesium Level 1.8 MG/DL 1.7 MG/DL Alkaline Phosphatase 106 U/L 133 U/L Aspartate Amino Transf (AST/SGOT) 47 U/L 60 U/L Alanine Aminotransferase (ALT/SGPT) 15 U/L 18 U/L Total Bilirubin 0.7 MG/DL 0.7 MG/DL Sodium Level 140 MEQ/L 140 MEQ/L Potassium Level 4.2 MEQ/L 3.6 MEQ/L Chloride Level 107 MEQ/L 107 MEQ/L Carbon Dioxide Level 23.2 MEQ/L 23.8 MEQ/L Anion Gap 10 MEQ/L 9 MEQ/L Estimat Glomerular Filtration Rate 188 ML/MIN 236 ML/MIN Hemoglobin A1c 5.3 % Free Thyroxine 1.73 NG/DL Thyroid Stimulating Hormone 3rd Gen 0.088 uIU/ML Pleural Fluid WBC 478 /MM3 Pleural Fluid RBC 285 /MM3 Pleural Fluid Neutrophils 43 % Pleural Fluid Lymphocytes 50 % Pleural Fluid Monocytes 3 % Pleural Fluid Mesothelial Cells 4 % Hematology Comments Test 10/25/17 07:27 Blood Urea Nitrogen 7 MG/DL Creatinine 0.37 MG/DL Random Glucose 80 MG/DL Total Protein 4.6 GM/DL Albumin 1.2 GM/DL Calcium Level 7.3 MG/DL Phosphorus Level 2.1 MG/DL Magnesium Level 1.6 MG/DL Alkaline Phosphatase 136 U/L Aspartate Amino Transf (AST/SGOT) 56 U/L Alanine Aminotransferase (ALT/SGPT) 16 U/L Total Bilirubin 0.6 MG/DL Sodium Level 139 MEQ/L Potassium Level 3.7 MEQ/L Chloride Level 108 MEQ/L Carbon Dioxide Level 23.4 MEQ/L Anion Gap 8 MEQ/L Estimat Glomerular Filtration Rate 236 ML/MIN Protein Corrected Calcium 8.7 MG/DL Imaging Last Impressions Chest X-Ray 10/24/17 0000 Signed Impressions: Service Date/Time: Tuesday, October 24, 2017 03:42 - CONCLUSION: 1. Right- sided chest tube without definite pneumothorax. 2. Cardiomegaly with pulmonary vascular congestion and interstitial edema. Hebert Gonzalez MD Chest Tube Insertion 10/23/17 1209 Signed Impressions: Service Date/Time: Monday, October 23, 2017 12:39 - CONCLUSION: Uncomplicated right chest tube placement as above. Roe Morel MD FACR Thoracentesis Ultrasound 10/23/17 0000 Signed Impressions: Service Date/Time: Monday, October 23, 2017 10:24 - CONCLUSION: Uncomplicated ultrasound right guided thoracentesis. Significant fluid remains. Roe Morel MD FACR CT Angiography 10/21/17 0000 Signed Impressions: Service Date/Time: Saturday, October 21, 2017 02:52 - CONCLUSION: 1. Large central right lung mass extending into the mediastinum. 2. Moderate-sized right pleural effusion. 3. Low density right lower lobe pulmonary consolidation indicating drowned lung. 4. 6 mm left lung nodule. 5. Lung mass extends into the subcarinal region. Enlarged right paratracheal lymph node. 6. No evidence of pulmonary embolus. Efren Farnsworth MD Brain MRI 10/21/17 0000 Signed Impressions: Service Date/Time: Saturday, October 21, 2017 08:39 - CONCLUSION: Multiple thin-walled rim enhancing cystic lesions identified within the white matter as described above. Given the appearance of these lesions this favors infectious process such as multiple cerebral abscesses, neurocysticercosis or lymphoma versus toxoplasma in the setting of immunocompromise patient. Additional differential diagnosis includes multiple glioblastomas or areas of tumefactive demyelination.. Ely Golden MD Abdomen/Pelvis CT 10/21/17 0000 Signed Impressions: Service Date/Time: Saturday, October 21, 2017 02:52 - CONCLUSION: 1. Findings highly suspicious for metastatic malignancy in the abdomen involving the liver , pancreas, and adrenal glands. Liver masses appear minimal to CT-guided biopsy. 2. Small moderate free fluid in the pelvis. 3. Nonspecific heterogeneous appearance of the prostate with multiple areas of decreased enhancement. 4. Diffuse atherosclerotic disease with abdominal aortic aneurysm and aortoiliac endograft. Fem-fem arterial bypass graft. The fem-fem graft is not opacified. Left common iliac and external iliac arteries also do not opacify. Efren Farnsworth MD Objective Remarks GENERAL: Awake alert and oriented 2 talkative and cooperative SKIN: Warm and dry. HEAD: Atraumatic. Normocephalic. EYES: Pupils equal and round. No scleral icterus. No injection or drainage. Extraocular muscles intact ENT: No nasal bleeding or discharge. Mucous membranes pink and moist. Tongue is midline NECK: Trachea midline. No JVD. Supple CARDIOVASCULAR: Regular rate and rhythm. S1-S2 no S3 or S4 RESPIRATORY: No accessory muscle use. FEW RHONCHI BL Breath sounds equal bilaterally. Decreased breath sounds on the right GASTROINTESTINAL: Abdomen soft, non-tender, nondistended. Hepatic and splenic margins not palpable. MUSCULOSKELETAL: Extremities without clubbing, cyanosis, or edema. No obvious deformities. NEUROLOGICAL: Awake and alert. No obvious cranial nerve deficits. Motor grossly within normal limits. 4 out of 5 muscle strength in the arms and legs. Normal speech. PSYCHIATRIC: INAppropriate mood and affect; insight and judgment ABnormal. Procedures RIGHT SIDE THORACENTESIS BY IR 4-9 RIGHT SIDE CHEST TUBE BY IR 4-9 RIGHT SIDE PLEURX BY IR 4-11 RIGHT SIDE CHEST TUBE REMOVAL 4-11 BY IR Medications and IVs Current Medications Sodium Chloride 1,000 ml @ 1,000 mls/hr Q1H ONCE IV Last administered on at 00:37; Start 10/20/17 at 23:56; Stop 10/21/17 at 00:55; Status DC Sodium Chloride 1,000 ml @ 999 mls/hr BOLUS ONCE IV Last administered on at 01:26; Start 10/21/17 at 00:00; Stop 10/21/17 at 01:00; Status DC Labetalol HCl (Trandate Inj) 10 mg ONCE ONCE IV PUSH Last administered on at 00:37; Start 10/21/17 at 00:00; Stop 10/21/17 at 00:01; Status DC Ceftriaxone Sodium 1000 mg/ Sodium Chloride 100 ml @ 200 mls/hr ONCE ONCE IV Last administered on 10/21/17at 02:04; Start 10/21/17 at 01:45; Stop 10/21/17 at 02: 14; Status DC Azithromycin 500 mg/Sodium Chloride 250 ml @ 250 mls/hr ONCE ONCE IV Last administered on 10/21/17at 04:05; Start 10/21/17 at 01:45; Stop 10/21/17 at 02:44; Status DC Iohexol (Omnipaque 350 Inj) 100 ml STK-MED ONCE IVCONTRAST Last administered on 10/21/17at 03:15; Start 10/21/17 at 03:15; Stop 10/21/17 at 03:16; Status DC Ceftriaxone Sodium 1000 mg/ Sodium Chloride 100 ml @ 200 mls/hr Q24H IV Last administered on 10/25/17at 05:48; Start 10/22/17 at 06:00 Azithromycin 500 mg/Sodium Chloride 250 ml @ 250 mls/hr Q24H IV Last administered on 10/25/17at 06:31; Start 10/22/17 at 06:00 Albuterol/ Ipratropium (Duoneb Neb) 1 ampule Q4HR NEB PRN NEB SOB/WHEEZING; Start 10/21/17 at 04:15 Sodium Chloride 1,000 ml @ 100 mls/hr Q10H IV Last administered on 10/25/17at 05:46; Start 10/21/17 at 04:06 Sodium Chloride (NS Flush) 2 ml UNSCH PRN IV FLUSH FLUSH AFTER USING IV ACCESS ; Start 10/21/17 at 04:15; Stop 10/22/17 at 11:15; Status DC Sodium Chloride (NS Flush) 2 ml BID IV FLUSH Last administered on 10/22/17at 09: 28; Start 10/21/17 at 09:00; Stop 10/22/17 at 11:15; Status DC Ondansetron HCl (Zofran Inj) 4 mg Q6H PRN IVP NAUSEA OR VOMITING; Start at 04:15; Stop 10/22/17 at 11:15; Status DC Acetaminophen (Tylenol) 650 mg Q6H PRN PO FEVER/PAIN SCALE 1 TO 2; Start at 04:15; Stop 10/22/17 at 11:25; Status DC Morphine Sulfate (Morphine Inj) 2 mg Q3H PRN IV PUSH Pain 6-10; Start 10/21/17 at 04:15; Stop 10/22/17 at 11:23; Status DC Oxycodone HCl (Roxicodone) 5 mg Q4H PRN PO PAIN SCALE 3 TO 5; Start 10/21/17 at 04:15; Stop 10/22/17 at 11:24; Status DC Senna/Docusate Sodium (Debra-Colace) 1 tab BID PO Last administered on 10/22/17at 09:06; Start 10/21/17 at 09:00; Stop 10/22/17 at 11:15; Status DC Magnesium Hydroxide (Milk Of Magnesia Liq) 30 ml Q12H PRN PO Mild constipation ; Start 10/21/17 at 04:15; Stop 10/22/17 at 11:15; Status DC Sennosides (Senokot) 17.2 mg Q12H PRN PO Moderate constipation; Start 10/21/17 at 04:15; Stop 10/22/17 at 11:15; Status DC Bisacodyl (Dulcolax Supp) 10 mg DAILY PRN RECTAL SEVERE CONSITIPATION; Start at 04:15; Stop 10/22/17 at 11:15; Status DC Lactulose (Lactulose Liq) 30 ml DAILY PRN PO SEVERE CONSITIPATION; Start at 04:15; Stop 10/22/17 at 11:15; Status DC Folic Acid (Folate) 1 mg DAILY PO Last administered on 10/22/17at 09:06; Start at 09:00; Stop 10/22/17 at 11:23; Status DC Thiamine HCl (Vitamin B1) 100 mg DAILY PO Last administered on 10/22/17at 09:06; Start 10/21/17 at 09:00; Stop 10/22/17 at 11:23; Status DC Multivitamins/ Minerals Therapeutic (Theragran M Tab) 1 tab DAILY PO Last administered on 10/22/17at 09:06; Start 10/21/17 at 09:00; Stop 10/22/17 at 11:23; Status DC Flumazenil (Romazicon Inj) 0.2 mg Q1M PRN IV PUSH SEE LABEL COMMENTS; Start 10/21/17 at 04:45; Stop 10/22/17 at 11:15; Status DC Lorazepam (Ativan) 1 mg Q4H PRN PO CIWA 8 - 10; Start 10/21/17 at 04:45; Stop at 11:15; Status DC Lorazepam (Ativan Inj) 1 mg Q4H PRN IV PUSH CIWA 8 - 10; Start 10/21/17 at 04:45 ; Stop 10/22/17 at 11:15; Status DC Lorazepam (Ativan) 2 mg Q2H PRN PO CIWA 11-14; Start 10/21/17 at 04:45; Stop 10/22/17 at 11:15; Status DC Lorazepam (Ativan Inj) 2 mg Q2H PRN IV PUSH CIWA 11-14; Start 10/21/17 at 04:45 ; Stop 10/22/17 at 11:15; Status DC Lorazepam (Ativan Inj) 2 mg Q1H PRN IV PUSH CIWA 15-20; Start 10/21/17 at 04:45 ; Stop 10/22/17 at 11:15; Status DC Lorazepam (Ativan Inj) 2 mg Q15M PRN IV PUSH CIWA > 20; Start 10/21/17 at 04:45 ; Stop 10/22/17 at 11:15; Status DC Haloperidol Lactate (Haldol Inj) 2 mg Q15M PRN IM SEE LABEL COMMENTS; Start 10/21/17 at 04:45; Stop 10/22/17 at 11:15; Status DC Gadodiamide (Omniscan Pf Inj) 15 ml STK-MED ONCE IVCONTRAST Last administered on 10/21/17at 08:48; Start 10/21/17 at 08:48; Stop 10/21/17 at 08:49; Status DC Albuterol/ Ipratropium (Duoneb Neb) 1 ampule BID NEB INH Last administered on 10/25/17at 09:36; Start 10/21/17 at 20:00 Phytonadione (Mephyton Liq) 5 mg DAILY PO Last administered on 10/24/17at 09:26 ; Start 10/22/17 at 09:00 Sodium Chloride 1,000 ml @ 999 mls/hr BOLUS ONCE IV Last administered on at 20:33; Start 10/21/17 at 20:30; Stop 10/21/17 at 21:30; Status DC Sodium Chloride (NS Flush) 2 ml UNSCH PRN IV FLUSH FLUSH AFTER USING IV ACCESS ; Start 10/22/17 at 10:15 Sodium Chloride (NS Flush) 2 ml BID IV FLUSH Last administered on 10/24/17at 19: 41; Start 10/22/17 at 21:00 Folic Acid (Folate) 1 mg DAILY PO Last administered on 10/24/17 09:27; Start 10/23/17 at 09:00; Stop 10/27/17 at 08:59 Thiamine HCl (Vitamin B1) 100 mg DAILY PO Last administered on 10/24/17at 09:27 ; Start 10/23/17 at 09:00 Multivitamins/ Minerals Therapeutic (Theragran M Tab) 1 tab DAILY PO Last administered on 10/24/17at 09:27; Start 10/23/17 at 09:00; Stop 10/27/17 at 08:59 Ondansetron HCl (Zofran Inj) 4 mg Q6H PRN IV PUSH NAUSEA OR VOMITING; Start 10/22/17 at 10:15; Stop 10/22/17 at 11:15; Status DC Clonidine (Catapres) 0.1 mg Q6H PRN PO SEE LABEL COMMENTS; Start 10/22/17 at 10: 15 Flumazenil (Romazicon Inj) 0.2 mg Q1M PRN IV PUSH SEE LABEL COMMENTS; Start 10/22/17 at 10:15; Stop 10/22/17 at 11:15; Status DC Lorazepam (Ativan) 1 mg Q4H PRN PO CIWA 8 - 10; Start 10/22/17 at 10:15 Lorazepam (Ativan Inj) 1 mg Q4H PRN IV PUSH CIWA 8 - 10; Start 10/22/17 at 10:15 Lorazepam (Ativan) 2 mg Q2H PRN PO CIWA 11-14; Start 10/22/17 at 10:15 Lorazepam (Ativan Inj) 2 mg Q2H PRN IV PUSH CIWA 11-14; Start 10/22/17 at 10:15 Lorazepam (Ativan Inj) 2 mg Q1H PRN IV PUSH CIWA 15-20; Start 10/22/17 at 10:15 Lorazepam (Ativan Inj) 2 mg Q15M PRN IV PUSH CIWA > 20; Start 10/22/17 at 10:15 ; Stop 10/22/17 at 11:15; Status DC Haloperidol Lactate (Haldol Inj) 2 mg Q15M PRN IM SEE LABEL COMMENTS; Start 10/22/17 at 10:15 Acetaminophen (Tylenol) 650 mg Q4H PRN PO TEMP > 100.4; Start 10/22/17 at 10:15 Ondansetron HCl (Zofran Inj) 4 mg Q6H PRN IVP NAUSEA OR VOMITING; Start at 10:15 Metoclopramide HCl (Reglan Inj) 5 mg Q6H PRN IV PUSH NAUSEA OR VOMITING; Start 10/22/17 at 10:15 Acetaminophen (Tylenol) 650 mg Q6H PRN PO PAIN SCALE 1 TO 2 Last administered on 10/24/17at 09:27; Start 10/22/17 at 10:15 Oxycodone/ Acetaminophen (Percocet 5-325 Mg) 1 tab Q6H PRN PO PAIN SCALE 3 TO 5; Start 10/22/17 at 10:15 Oxycodone/ Acetaminophen (Percocet 10-325 Mg) 1 tab Q6H PRN PO PAIN SCALE 6 TO 10; Start 10/22/17 at 10:15 Morphine Sulfate (Morphine Inj) 2 mg Q3H PRN IV PUSH Pain 3-5; if unable to take PO; Start 10/22/17 at 10:15 Morphine Sulfate (Morphine Inj) 4 mg Q3H PRN IV PUSH Pain 6-10;if unable to take PO; Start 10/22/17 at 10:15 Morphine Sulfate (Morphine Inj) 4 mg Q3H PRN IV PUSH BREAKTHROUGH PAIN; Start 10/22/17 at 10:15 Naloxone HCl (Narcan Inj) 0.4 mg UNSCH PRN IV PUSH SEE LABEL COMMENTS; Start at 10:15 Senna/Docusate Sodium (Debra-Colace) 1 tab BID PO Last administered on at 09:27; Start 10/22/17 at 21:00 Magnesium Hydroxide (Milk Of Magnesia Liq) 30 ml Q12H PRN PO Mild constipation ; Start 10/22/17 at 10:15 Sennosides (Senokot) 17.2 mg Q12H PRN PO Moderate constipation; Start 10/22/17 at 10:15 Bisacodyl (Dulcolax Supp) 10 mg DAILY PRN RECTAL SEVERE CONSITIPATION; Start at 10:15 Lactulose (Lactulose Liq) 30 ml DAILY PRN PO SEVERE CONSITIPATION Last administered on 10/23/17at 14:40; Start 10/22/17 at 10:15 Flumazenil (Romazicon Inj) 0.2 mg Q1M PRN IV PUSH SEE LABEL COMMENTS; Start 10/22/17 at 10:15 Lorazepam (Ativan Inj) 2 mg Q15M PRN IV PUSH CIWA > 20; Start 10/22/17 at 10:15 Diltiazem HCl (Cardizem Inj) 10 mg ONCE ONCE IV Last administered on 10/22/17at 12:30; Start 10/22/17 at 12:30; Stop 10/22/17 at 12:31; Status DC Diltiazem HCl (Cardizem) 60 mg Q6HR PO Last administered on 10/25/17at 05:53; Start 10/22/17 at 12:30 Diltiazem HCl (Cardizem Inj) 50 mg STK-MED ONCE .ROUTE ; Start 10/22/17 at 12:25 ; Stop 10/22/17 at 12:26; Status DC Potassium Chloride 100 ml @ 50 mls/hr Q2H IV Last administered on 10/22/17at 01: 45; Start 10/22/17 at 15:00; Stop 10/23/17 at 00:59; Status DC Fentanyl Citrate (fentaNYL INJ) 250 mcg STK-MED ONCE .ROUTE ; Start 10/23/17 at 12:42; Stop 10/23/17 at 12:43; Status DC Lidocaine HCl (Xylocaine-Mpf 1% Inj) 30 ml STK-MED ONCE .ROUTE Last administered on 10/23/17at 10:12; Start 10/23/17 at 15:06; Stop 10/23/17 at 15:07; Status DC Diltiazem HCl (Cardizem) 30 mg ONCE ONCE PO Last administered on 10/24/17at 09: 46; Start 10/24/17 at 09:30; Stop 10/24/17 at 09:38; Status DC A/P Problem List: (1) Lung mass ICD Code: R91.8 - Other nonspecific abnormal finding of lung field (2) PNA (pneumonia) ICD Code: J18.9 - Pneumonia, unspecified organism (3) Pleural effusion ICD Code: J90 - Pleural effusion, not elsewhere classified (4) Lactic acidosis ICD Code: E87.2 - Acidosis Assessment and Plan 1. Lung Mass: CTA Pulm w/ large central right lung mass extending to mediastinum w/ associated lymphadenopathy, images reviewed by me. CT Abd/ Pelvis w/ extensive metastatic disease to liver, pancreas and adrenal glands, images reviewed by me. +tobacco abuse. Consult Oncology for further evaluation. 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 Consult Pulmonology for eval/bronchoscopy. Pt made aware of findings, he understands and wishes to proceed w/ further treatment/intervention. POSSIBLE BRAIN METS PER SCANS- RADIATION CONSULT--RIGHT SIDE CHEST TUBE PLACED 10-23, HAD THORACENTESIS ON 10-23 2. Pleural Effusion: moderate right-sided pleural effusion on CTA Pulm, consult Pulmonology/IR for thoracentesis. O2 sat normal, will continue to monitor. ONCOLOGY CONSULTED --HAD CHEST TUBE ON RIGHT PLACED ON 10-23 HAD THORACENTESIS ON RIGHT ON 10-23 TO HAVE IR REMOVE CHEST TUBE AND PLACE PLEURX ON 10-25 3. PNA: CXR w/ RLL consolidation, also seen on CTA Pulm, images reviewed by me. S/p Rocephin/Zithro in ER, will continue w/ IV Abx, DuoNeb prn. VS LUNG CANCER 4. Lactic Acidosis: Lactate 4.0, likely secondary to infection/early sepsis. Follow up cultures, IVF for hydration, repeat Lactic Acid 5. Tobacco Abuse: Pt counselled. Ativan/NicoDerm prn if needed. 6. DVT Prophylaxis: SCD/Teds. 7. Social work for d/c planning as needed. PT AND OT TO EVAL AND TREAT AM LABS GUARDED PROGNOSIS NEED TISSUE FOR DIAGNOSIS PROBABLE HOSPICE CANDIDATE DC CHEST TUBE ON RIGHT PLACE PLEURX HOPEFULLY TO HOSPICE/HHC TODAY Discharge Planning PENDING CLEARANCE BY ALL Roe Rees DO Oct 25, 2017 10:38
[2017-10-25] MEDS ORDERED: ZITH500T PO (10:43)
[2017-10-25] MEDS ORDERED: LEVO.1 PO (10:43)
[2017-10-25] MEDS ORDERED: Albuterol-Ipratropium Neb NEB (10:43)
[2017-10-25] MEDS ORDERED: OXYC1TAB36 PO (10:43)
[2017-10-25] MEDS ORDERED: FOLI1TAB6 PO (10:43)
[2017-10-25] MEDS ORDERED: THERM PO (10:43)
[2017-10-25] MEDS ORDERED: DILT60TA33 PO (10:43)
[2017-10-25] MEDS ORDERED: SENN187 PO (10:43)
[2017-10-25] MEDS ORDERED: THIA100 PO (10:43)
[2017-10-25] MEDS ORDERED: NEBULIZER1 MI1 (10:44)
--- NOTE | 2017-10-25 10:45 | HHI.FF ---
Face to Face Verification Diagnosis: (1) PNA (pneumonia) (2) Lung mass (3) Pain (4) Physical deconditioning (5) Shortness of breath (6) Pleural effusion (7) Lactic acidosis (8) Metastatic disease (9) Pleural effusion (10) Generalized weakness Physical Therapy Order: Evaluate and Treat, Improve ambulation, Strength and gait training Occupational Therapy Order: Evaluate and Treat, Improve ADL, Gross motor coordination, Fine motor coordination Home Health Nursing Order: Medical education Oxygen administration education Nursing assessment with vital signs Home Health Aide Order: To Assist In: Bathing and personal care, family manager and meal prep Boxing Machine Operator Order: To Evaluate: Living conditions/environment, Support services Order: To Provide: Long range planning, Community services I have seen patient Nick Blankenship on 10/25/17. My clinical findings support the need for the requested home health care services because: Patient has SOB Deconditioned w/ increased weakness Med compliance is questionable Limited ability to care for self I certify that my clinical findings support that this patient is homebound because: Hx COPD- exertion dyspnea/weakness Unsteady gait/balance Unsafe to leave home unassisted Need for psychosocial assistance Roe Rees DO Oct 25, 2017 10:45
[2017-10-25] MEDS ORDERED: OXYGENDME NAS.CANULA (10:47)
--- NOTE | 2017-10-25 10:49 | HHI.DS ---
Discharge Summary Admission Date Oct 21, 2017 at 04:10 Discharge Date: Oct 25, 2017 Admitting Diagnosis Metastatic disease, pleural effusion, generalized weakness (1) Lung mass ICD Code: R91.8 - Other nonspecific abnormal finding of lung field Diagnosis: Principal (2) PNA (pneumonia) ICD Code: J18.9 - Pneumonia, unspecified organism Diagnosis: Principal (3) Pleural effusion ICD Code: J90 - Pleural effusion, not elsewhere classified Diagnosis: Principal (4) Lactic acidosis ICD Code: E87.2 - Acidosis Diagnosis: Principal Procedures RIGHT SIDE THORACENTESIS BY IR 4-9 RIGHT SIDE CHEST TUBE BY IR 4-9 RIGHT SIDE PLEURX BY IR -11 RIGHT SIDE CHEST TUBE REMOVAL 10-25 BY IR Brief History - From Admission This is a 67-year-old male with a PMH of Thyroid CA, Alcohol Abuse and Tobacco Abuse who was brought to the ER by EMS for weakness. Per patient, he's had difficulty "getting around" over the last 1-2 wks and states his friends got worried and called 911. Denies fever, chills, chest pain or SOB. On arrival, BP 126/85, HR 96, O2 sat 96% on RA, Temp 100.0. WBC 13.6. Chemistry essentially unremarkable. Lactic Acid 4.0. Lipase 918. INR 1.4. CXR moderate size right pleural effusion and right lower lung atelectasis versus consolidation. CTA Pulm with large central right lung mass extending into the mediastinum, moderate right sided pleural effusion, low density right lower lobe pulmonary consolidation, 6 mm left lung nodule, enlarged right paratracheal lymph nodes, no PE. CT Abdomen/Pelvis with findings highly suspicious for metastatic malignancy in the abdomen involving the liver, pancreas and adrenal glands. Pt made aware of findings, denies known h/o cancer besides Thyroid. S/p Rocephin/Zithro in ER. CBC/BMP: 10/25/17 0724 10/25/17 0727 Significant Findings Laboratory Tests Test 10/23/17 07:45 10/23/17 10:15 10/24/17 06:45 10/25/17 07:24 Red Blood Count 3.48 MIL/MM3 (4.50-5.90) 3.72 MIL/MM3 (4.50-5.90) 3.35 MIL/MM3 (4.50-5.90) Hemoglobin 10.8 GM/DL (13.0-17.0) 11.7 GM/DL (13.0-17.0) 10.5 GM/DL (13.0-17.0) Hematocrit 32.7 % (39.0-51.0) 34.9 % (39.0-51.0) 31.5 % (39.0-51.0) Neutrophils (%) (Auto) 79.8 % (16.0-70.0) 82.2 % (16.0-70.0) 81.8 % (16.0-70.0) Neutrophils # (Auto) 8.1 TH/MM3 (1.8-7.7) 8.8 TH/MM3 (1.8-7.7) 9.2 TH/MM3 (1.8-7.7) Creatinine 0.45 MG/DL (0.60-1.30) 0.37 MG/DL (0.60-1.30) Total Protein 5.3 GM/DL (6.4-8.2) 5.1 GM/DL (6.4-8.2) Albumin 1.4 GM/DL (3.4-5.0) 1.3 GM/DL (3.4-5.0) Calcium Level 7.6 MG/DL (8.5-10.1) 7.5 MG/DL (8.5-10.1) Phosphorus Level 1.9 MG/DL (2.5-4.9) 1.6 MG/DL (2.5-4.9) Aspartate Amino Transf (AST/SGOT) 47 U/L (15-37) 60 U/L (15-37) Free Thyroxine 1.73 NG/DL (0.76-1.46) Thyroid Stimulating Hormone 3rd Gen 0.088 uIU/ML (0.358-3.740) Pleural Fluid WBC 478 /MM3 (0-10) Pleural Fluid RBC 285 /MM3 (0-0) Random Glucose 72 MG/DL (74-106) Alkaline Phosphatase 133 U/L (45-117) White Blood Count 11.2 TH/MM3 (4.0-11.0) Test 10/25/17 07:27 Creatinine 0.37 MG/DL (0.60-1.30) Total Protein 4.6 GM/DL (6.4-8.2) Albumin 1.2 GM/DL (3.4-5.0) Calcium Level 7.3 MG/DL (8.5-10.1) Phosphorus Level 2.1 MG/DL (2.5-4.9) Alkaline Phosphatase 136 U/L (45-117) Aspartate Amino Transf (AST/SGOT) 56 U/L (15-37) Chloride Level 108 MEQ/L (98-107) Imaging Last Impressions Chest X-Ray 10/24/17 0000 Signed Impressions: Service Date/Time: Tuesday, October 24, 2017 03:42 - CONCLUSION: 1. Right- sided chest tube without definite pneumothorax. 2. Cardiomegaly with pulmonary vascular congestion and interstitial edema. Hebert Gonzalez MD Chest Tube Insertion 10/23/17 1209 Signed Impressions: Service Date/Time: Monday, October 23, 2017 12:39 - CONCLUSION: Uncomplicated right chest tube placement as above. Roe Morel MD FACR Thoracentesis Ultrasound 10/23/17 0000 Signed Impressions: Service Date/Time: Monday, October 23, 2017 10:24 - CONCLUSION: Uncomplicated ultrasound right guided thoracentesis. Significant fluid remains. Roe Morel MD FACR CT Angiography 10/21/17 0000 Signed Impressions: Service Date/Time: Saturday, October 21, 2017 02:52 - CONCLUSION: 1. Large central right lung mass extending into the mediastinum. 2. Moderate-sized right pleural effusion. 3. Low density right lower lobe pulmonary consolidation indicating drowned lung. 4. 6 mm left lung nodule. 5. Lung mass extends into the subcarinal region. Enlarged right paratracheal lymph node. 6. No evidence of pulmonary embolus. Efren Farnsworth MD Brain MRI 10/21/17 0000 Signed Impressions: Service Date/Time: Saturday, October 21, 2017 08:39 - CONCLUSION: Multiple thin-walled rim enhancing cystic lesions identified within the white matter as described above. Given the appearance of these lesions this favors infectious process such as multiple cerebral abscesses, neurocysticercosis or lymphoma versus toxoplasma in the setting of immunocompromise patient. Additional differential diagnosis includes multiple glioblastomas or areas of tumefactive demyelination.. Ely Golden MD Abdomen/Pelvis CT 10/21/17 0000 Signed Impressions: Service Date/Time: Saturday, October 21, 2017 02:52 - CONCLUSION: 1. Findings highly suspicious for metastatic malignancy in the abdomen involving the liver , pancreas, and adrenal glands. Liver masses appear minimal to CT-guided biopsy. 2. Small moderate free fluid in the pelvis. 3. Nonspecific heterogeneous appearance of the prostate with multiple areas of decreased enhancement. 4. Diffuse atherosclerotic disease with abdominal aortic aneurysm and aortoiliac endograft. Fem-fem arterial bypass graft. The fem-fem graft is not opacified. Left common iliac and external iliac arteries also do not opacify. Efren Farnsworth MD PE at Discharge GENERAL: Awake alert and oriented 2 talkative and cooperative SKIN: Warm and dry. HEAD: Atraumatic. Normocephalic. EYES: Pupils equal and round. No scleral icterus. No injection or drainage. Extraocular muscles intact ENT: No nasal bleeding or discharge. Mucous membranes pink and moist. Tongue is midline NECK: Trachea midline. No JVD. Supple CARDIOVASCULAR: Regular rate and rhythm. S1-S2 no S3 or S4 RESPIRATORY: No accessory muscle use. FEW RHONCHI BL Breath sounds equal bilaterally. Decreased breath sounds on the right GASTROINTESTINAL: Abdomen soft, non-tender, nondistended. Hepatic and splenic margins not palpable. MUSCULOSKELETAL: Extremities without clubbing, cyanosis, or edema. No obvious deformities. NEUROLOGICAL: Awake and alert. No obvious cranial nerve deficits. Motor grossly within normal limits. 4 out of 5 muscle strength in the arms and legs. Normal speech. PSYCHIATRIC: INAppropriate mood and affect; insight and judgment ABnormal. Hospital Course This is a 67-year-old male with a PMH of Thyroid CA, Alcohol Abuse and Tobacco Abuse who was brought to the ER by EMS for weakness. Per patient, he's had difficulty "getting around" over the last 1-2 wks and states his friends got worried and called 911. Denies fever, chills, chest pain or SOB. On arrival, BP 126/85, HR 96, O2 sat 96% on RA, Temp 100.0. WBC 13.6. Chemistry essentially unremarkable. Lactic Acid 4.0. Lipase 918. INR 1.4. CXR moderate size right pleural effusion and right lower lung atelectasis versus consolidation. CTA Pulm with large central right lung mass extending into the mediastinum, moderate right sided pleural effusion, low density right lower lobe pulmonary consolidation, 6 mm left lung nodule, enlarged right paratracheal lymph nodes, no PE. CT Abdomen/Pelvis with findings highly suspicious for metastatic malignancy in the abdomen involving the liver, pancreas and adrenal glands. Pt made aware of findings, denies known h/o cancer besides Thyroid. S/p Rocephin/Zithro in ER. 10-22 transferred to [facility] FROM ER HAVING US OF RIGHT CHEST TO SEE IF HAS A PLEURAL EFFUSION NO CURRENT COMPLAINTS DW RN AND PT AND CM NEEDS PT AND OT AM LABS 10-23 TO GO FOR THORACENTESIS LATER TODAY NEEDS TISSUE FOR DIAGNOSIS DW RN AND CM AND PT NEEDS PT AND OT BREATHING BETTER EATING WELL 10-24 HAD CHEST TUBE ON RIGHT PLACED WELL THORACENTESIS ON 10-23 DW RN AND PT AND CM CONSULT PALLIATIVE CARE AND HOSPICE POOR PROGNOSIS RADIATION ONCOLOGY FAVORED NOT GIVING RADIATION 10-25 TO HAVE CHEST TUBE REMOVED AND PLEURX PLACED BY IR POSSIBLY HOME WITH HOSPICE LATER TODAY AND OR [facility] DW RN AND PT AND CM Pt Condition on Discharge: Fair Discharge Disposition: Hospice/Med Facility Discharge Time: > 30 minutes Discharge Instructions DIET: Follow Instructions for: As Tolerated, No Restrictions, Heart Healthy Diet Speech Therapy-Diet Recommends: Regular Activities you can perform: Regular-No Restrictions New Medications: Azithromycin (Zithromax) 500 Mg Tab 500 MG PO DAILY for Infection for 5 Days, #5 TAB 0 Refills Levothyroxine (Synthroid) 100 Mcg Tab 100 MCG PO DAILY for Thyroid, #30 TAB 0 Refills Nebulizer (Nebulizer) 1 Mis Mis EA .XX DIRECTED for Breathing Treatment, #1 0 Refills Oxygen (O2) (Oxygen (O2)) Device LITER HARIKA.CANULA CONTINUOUS for Prevent Hypoxemia, #3 Oxygen Concentrator Portable Gaseous 3 L/min via Nasal Canula Continuous For 99 months Diltiazem (Cardizem) 60 Mg Tab 60 MG PO Q6HR for Blood Pressure Management, #120 TAB Folic Acid (Folic Acid) 1 Mg Tablet 1 MG PO DAILY for Nutritional Supplement, #30 TAB Multiple Vitamins W/ Minerals (Thera M Plus) 1 Tab 1 TAB PO DAILY for Nutritional Supplement, #30 TAB Oxycodone HCl/Acetaminophen (Oxycodone-Acetaminophen 10-325) 10 Mg-325 Mg Tablet 1 TAB PO Q6H PRN for PAIN SCALE 6 TO 10, #40 TAB Sennosides (Senna-Lax) 8.6 Mg Tab 17.2 MG PO Q12H PRN for Moderate constipation, #120 TAB Thiamine HCl (Gnp Vitamin B-1) 100 Mg Tab 100 MG PO DAILY for Nutritional Supplement, #30 TAB [Albuterol-Ipratropium Neb] () 1 AMPULE NEBU 1 AMPULE NEB Q4HR NEB PRN for SOB/WHEEZING, #120 AMPULE Continued Medications: Calcium Carbonate (Caltrate 600) Tab 1 TAB PO BID, 0 Refills Lisinopril (Prinivil) 10 Mg Tab 10 MG PO DAILY, 0 Refills [Actonel] () 150 MG PO MONTHLY, 0 Refills Discontinued Medications: Azithromycin (Zithromax Z-John) 250 Mg Tab 250 MG PO DIRECTED for 5 Days, 0 Refills 500 MG (2 TABLETS) PO ON DAY 1, THEN 250 MG (1 TABLET) PO ON DAYS 2 TO 5. Synthroid 100 mcg (Synthroid 100 mcg) 100 Mcg Tab 100 MCG PO DAILY, 0 Refills Roe Rees DO Oct 25, 2017 10:49
[2017-10-25] MEDS: SODIUM CHLORIDE 0.9% FLUSH 10 ML FLUSH IV FLUSH SCH ×2 (13:11→21:32)
[2017-10-25] MEDS ORDERED: MIDAZOLAM HCL 2 MG/2 ML VIAL ONE (15:21)
[2017-10-25] MEDS ORDERED: LIDOCAINE 1%/EPINEPHrine 1:100,000 SOLN 30 ML VIAL ONE (15:23)
[2017-10-26] VITALS (13 sets, daily range): BP systolic 86–102; BP diastolic 44–69; PULSE 67–113; RESP 20–24; TEMP 97.6–98.3; O2SAT 92–98
[2017-10-26] MEDS: DILTIAZEM HCL 60 MG TAB PO SCH ×3 (00:03→15:56)
[2017-10-26] MEDS: AZITHROMYCIN INJ 500 MG in SODIUM CHLOR 0.9% 250 ML INJ 250 ML IV SCH (04:30)
[2017-10-26] MEDS: oxyCODONE/ACETAMINOPHEN 10 MG/325 MG TAB PO PRN ×2 (06:23→15:56)
[2017-10-26] MEDS: cefTRIAXone INJ 1,000 MG in SODIUM CHLORIDE 0.9% INJ 100 ML IV SCH (06:24)
[2017-10-26] MEDS: FOLIC ACID 1 MG TAB PO SCH (09:00)
[2017-10-26] MEDS: DOCUSATE SODIUM 50 MG/SENNA 8.6 MG TAB PO SCH (09:00)
[2017-10-26] MEDS: PHYTONADIONE 5 MG/SWFI 5 ML ORAL SYR PO SCH (09:00)
[2017-10-26] MEDS: MULTIVITAMINS/MINERALS THERAPEUTIC TAB PO SCH (09:00)
[2017-10-26] MEDS: THIAMINE HCL 100 MG TAB PO SCH (09:00)
[2017-10-26] MEDS ORDERED: MIDAZOLAM HCL 2 MG/2 ML VIAL ONE (10:00)
[2017-10-26] MEDS ORDERED: LIDOCAINE 1%/EPINEPHrine 1:100,000 SOLN 30 ML VIAL ONE (10:17)
[2017-10-26] MEDS ORDERED: IOHEXOL 350 MG/ML 50 ML BTL (for RAD DIAG) OTHER ONE (11:46)
--- NOTE | 2017-10-26 12:05 | PD.RAD ---
Post Procedure Progress Note Pre Procedure Diagnosis: (1) Metastatic disease (2) Pleural effusion Post Procedure Diagnosis: (1) Metastatic disease (2) Pleural effusion Procedure Date: Oct 26, 2017 Supervising Radiologist: Jeovany Monge Proceduralist/Assist: Andrey Hernandez, RT(R), Natalia Alanis, RT(R) Anesthesia: Local, Analgesia, Conscious Sedation Plan of Activity Patient to Unit: ROPU Patient Condition: Good See PACS Report for procedural detail/treatment Drainage Procedure Procedure 1 Imaging Guidance: Fluoroscopy, Ultrasound Side: Right Procedure Type: Chest Tube Tunneled (Aspira) Procedure: Placement Fluid Removal (CCs): 850 Fluid Description: Ananda Barros Scott D. MD Oct 26, 2017 12:05
--- NOTE | 2017-10-26 12:34 | HHI.PR ---
Subjective Remarks - went for CT placement-_Aspira- tolerated- no complains comfortable Objective Vitals Vital Signs Date Time Temp Pulse Resp B/P (MAP) Pulse Ox O2 Delivery O2 Flow Rate FiO2 10/26/17 09:30 94 Nasal Cannula 3.00 10/26/17 09:28 97.7 76 24 86/56 (66) 94 10/26/17 05:00 78 10/26/17 04:00 98.3 85 22 101/62 (75) 94 10/26/17 04:00 67 10/26/17 03:00 80 10/26/17 02:00 78 10/26/17 01:00 88 10/26/17 00:00 89 10/26/17 00:00 97.6 95 20 102/69 (80) 94 10/25/17 23:00 86 10/25/17 22:00 90 10/25/17 21:22 97.7 96 18 91/56 (68) 92 10/25/17 21:00 92 10/25/17 20:00 79 10/25/17 19:59 93 Nasal Cannula 3.00 10/25/17 18:34 97.9 75 18 91/54 (66) 93 10/25/17 16:30 82 16 94/64 (74) 10/25/17 13:13 97.7 96 20 115/72 (86) 91 I/O 10/25/17 10/25/17 10/25/17 10/26/17 10/26/17 10/26/17 07:00 15:00 23:00 07:00 15:00 23:00 Intake Total 1340 ml 720 ml 700 ml Output Total 940 ml 300 ml 290 ml Balance 400 ml 420 ml 410 ml Intake Oral 240 ml 720 ml 350 ml IV Total 1100 ml 350 ml Output Urine Total 350 ml 300 ml 200 ml Chest Tube Drainage Total 590 ml 90 ml # Bowel Movements 0 Result Diagram: 10/25/17 0724 10/25/17 0727 Imaging Last Impressions Chest X-Ray 10/24/17 0000 Signed Impressions: Service Date/Time: Tuesday, October 24, 2017 03:42 - CONCLUSION: 1. Right- sided chest tube without definite pneumothorax. 2. Cardiomegaly with pulmonary vascular congestion and interstitial edema. Hebert Gonzalez MD Chest Tube Insertion 10/23/17 1209 Signed Impressions: Service Date/Time: Monday, October 23, 2017 12:39 - CONCLUSION: Uncomplicated right chest tube placement as above. Roe Morel MD FACR Thoracentesis Ultrasound 10/23/17 0000 Signed Impressions: Service Date/Time: Monday, October 23, 2017 10:24 - CONCLUSION: Uncomplicated ultrasound right guided thoracentesis. Significant fluid remains. Roe Morel MD FACR CT Angiography 10/21/17 0000 Signed Impressions: Service Date/Time: Saturday, October 21, 2017 02:52 - CONCLUSION: 1. Large central right lung mass extending into the mediastinum. 2. Moderate-sized right pleural effusion. 3. Low density right lower lobe pulmonary consolidation indicating drowned lung. 4. 6 mm left lung nodule. 5. Lung mass extends into the subcarinal region. Enlarged right paratracheal lymph node. 6. No evidence of pulmonary embolus. Efren Farnsworth MD Brain MRI 10/21/17 0000 Signed Impressions: Service Date/Time: Saturday, October 21, 2017 08:39 - CONCLUSION: Multiple thin-walled rim enhancing cystic lesions identified within the white matter as described above. Given the appearance of these lesions this favors infectious process such as multiple cerebral abscesses, neurocysticercosis or lymphoma versus toxoplasma in the setting of immunocompromise patient. Additional differential diagnosis includes multiple glioblastomas or areas of tumefactive demyelination.. Ely Golden MD Abdomen/Pelvis CT 10/21/17 0000 Signed Impressions: Service Date/Time: Saturday, October 21, 2017 02:52 - CONCLUSION: 1. Findings highly suspicious for metastatic malignancy in the abdomen involving the liver , pancreas, and adrenal glands. Liver masses appear minimal to CT-guided biopsy. 2. Small moderate free fluid in the pelvis. 3. Nonspecific heterogeneous appearance of the prostate with multiple areas of decreased enhancement. 4. Diffuse atherosclerotic disease with abdominal aortic aneurysm and aortoiliac endograft. Fem-fem arterial bypass graft. The fem-fem graft is not opacified. Left common iliac and external iliac arteries also do not opacify. Efren Farnsworth MD Objective Remarks awake and alert, no acute distress anciteric right chest wall- Aspira pleurovac in place regular rhythm abdomen soft, nontender extremities no edema Procedures RIGHT SIDE THORACENTESIS BY IR 4-9 RIGHT SIDE CHEST TUBE BY IR 4-9 RIGHT SIDE PLEURX BY IR 10-25 RIGHT SIDE CHEST TUBE REMOVAL 10-25 BY IR 10/26- Aspira chest tube placement A/P Problem List: (1) Lung mass ICD Code: R91.8 - Other nonspecific abnormal finding of lung field (2) PNA (pneumonia) ICD Code: J18.9 - Pneumonia, unspecified organism (3) Pleural effusion ICD Code: J90 - Pleural effusion, not elsewhere classified (4) Lactic acidosis ICD Code: E87.2 - Acidosis Assessment and Plan 67 years old male 1. Lung Mass: CTA Pulm w/ large central right lung mass extending to mediastinum w/ associated lymphadenopathy, images reviewed by me. CT Abd/ Pelvis w/ extensive metastatic disease to liver, pancreas and adrenal glands, images reviewed by me. +tobacco abuse. Consult Oncology for further evaluation. Will obtain MRI Brain to eval for possible [employer] mets. Consult Pulmonology for eval/bronchoscopy. Pt made aware of findings, he understands and wishes to proceed w/ further treatment/intervention. POSSIBLE BRAIN METS PER SCANS- RADIATION CONSULT--RIGHT SIDE CHEST TUBE PLACED 10-23, HAD THORACENTESIS ON 10-23 2. Pleural Effusion: moderate right-sided pleural effusion on CTA Pulm, consult Pulmonology/IR for thoracentesis. O2 sat normal, will continue to monitor. ONCOLOGY ff --HAD CHEST TUBE ON RIGHT PLACED ON 10-23 HAD THORACENTESIS ON RIGHT ON 10-23 TO HAVE IR REMOVE CHEST TUBE AND PLACE PLEURX ON 10-25 - for Aspira pleurovac placement today- drain daily for 5 days 3. PNA: CXR w/ RLL consolidation, also seen on CTA Pulm, images reviewed by me. S/p Rocephin/Zithro in ER, will continue w/ IV Abx, DuoNeb prn. VS LUNG CANCER 4. Lactic Acidosis: Lactate 4.0, likely secondary to infection/early sepsis. Follow up cultures, IVF for hydration, repeat Lactic Acid 5. Tobacco Abuse: Pt counselled. Ativan/NicoDerm prn if needed. 6. DVT Prophylaxis: SCD/Teds. 7. Social work for d/c planning as needed. PT AND OT HOSPICE CANDIDATE HOPEFULLY TO HOSPICE/HHC TODAY HOVF ff along with us Problem Qualifiers (1) PNA (pneumonia): Qualified Codes: J18.9 - Pneumonia, unspecified organism Gurjit Stallings MD Oct 26, 2017 12:34
--- NOTE | 2017-10-26 13:07 | RADRPT ---
EXAM DATE/TIME: 10/26/2017 12:34 [facility] COMPARISON: PLEURAL CATHETER PLACEMENT, RIGHT, October 26, 2017, 10:42. CHEST EXPIRATION ONLY, October 24, 2017, 3:4 2. INDICATIONS : Post right chest tube. MEDICAL HISTORY : Hypertension. Carcinoma, thyroid. SURGICAL HISTORY : Thyroidectomy ENCOUNTER: Subsequent ACUITY: 4 - 6 days PAIN SCORE: 0/10 LOCATION: Right chest FINDINGS: Portable AP view of the chest demonstrates cardiac silhouette size at the upper limits for normal. Th ere is rightward shift of the mediastinum. Lungs are underinflated. There is a right basilar pleural- parenchymal opacity. A catheter overlies the probe right hemithorax with distal tip in the midportion . No pneumothorax is present. There is atelectasis versus consolidation at the left lung base. There are old left rib fractures. CONCLUSION: 1. Right chest tube is in the peripheral mid hemithorax. No pneumothorax is seen. The pleural based o pacity/pleural effusion appears decreased from the study from 2 days ago. 2. Persistent atelectasis or consolidation remains present at the right lung base. There is atelectas is at the left lung base which may be related to the expiratory technique. Jermaine Galeana MD on October 26, 2017 at 13:02 Board Certified Radiologist. This report was verified electronically.
--- NOTE | 2017-10-26 15:08 | RADRPT ---
EXAM DATE/TIME: 10/26/2017 10:42 [facility] COMPARISON: CHEST EXPIRATION ONLY, October 24, 2017, 3:42. CT GUIDED CHEST TUBE PLACEMENT RIGHT, October 23, 2017, 1 2:39. INDICATIONS : Patient presents with chronic pleural effusion in need of pleural drainage catheter placement. MEDICAL HISTORY : Thyroid CA Alcohol abuse Tabacco abuse Metastatic disease Pleural effusion SURGICAL HISTORY : Thyroidectomy ENCOUNTER: Initial ACUITY: 1 week PAIN SCORE: 0/10 LOCATION: N/A FLUORO TIME: 7.13 minutes IMAGE SERIES: 5 SEDATION TIME: 60 minutes CONTRAST: 30 cc Omnipaque (iohexol) 350 MEDICATION(S): 1.) 1.5 mg midazolam (Versed) IV 2.) 75 mcg fentanyl (Sublimaze) IV DEVICE(S): 1.) Aspiria catheter 15.5 FR PROCEDURE : 1. ultrasound and fluoroscopic-guided tunneled chest tube placement. 2. Conscious sedation with continuous EKG and Oximetry monitoring. The risks, benefits and alternatives to the procedure were explained and verbal and written consent w as obtained. The site was prepped in sterile fashion. Full sterile technique was used, including ca p, mask, sterile gloves and gown and a large sterile sheet. Hand hygiene and 2% chlorhexidine prep w as utilized per protocol for cutaneous antisepsis with appropriate dry time for site. The skin and s ubcutaneous tissues were infiltrated with local anesthetic solution. Patient had an existing right-sided Cobra thoracostomy tube that was placed in the CT. However, when injected, the catheter appeared to be partially occluded as well as partially dislodged into the subc utaneous tissues. Therefore, this access was abandoned. Under ultrasound guidance, a 21 gauge micropu ncture needle was advanced into the pleural fluid. The 018 wire was advanced through the needle over which the 3-4 dilator was placed. Through the outer 4 Ivorian dilator, a stiff Glidewire was advanced into the right hemithorax. Catheter tip was cut to an appropriate length and a dermatotomy made on th e skin surface to accommodate a tunneled Aspira drain after appropriate local anesthetic. A subcutane ous tunnel was made with an 18 gauge Bae blunt needle. The inner stylette was utilized to guide t he peel-away sheath through the subcutaneous tunnel and facilitate placement of the Aspira catheter t hrough the subcutaneous tract. The thoracostomy access was then serially dilated to accommodate the same peel-away sheath. Over the wire and through the sheath, the spirit drain was advanced into the thoracic cavity. Position was con firmed with positive contrast. The access dermatotomy was closed with 3-0 Vicryl and Dermabond adhesi ve.. Conscious sedation was performed with the prescribed dosages and duration as above in the presence of an independent trained radiology nurse to assist in the monitoring of the patient. EKG and oximetry remained stable throughout the procedure. CONCLUSION: Ultrasound and fluoroscopic-guided placement of a tunneled right-sided Aspira thoracostomy tube as above. Jeovany Monge MD on October 26, 2017 at 14:54 Board Certified Radiologist. This report was verified electronically.
[2017-10-26] MEDS: SODIUM CHLORIDE 0.9% FLUSH 10 ML FLUSH IV FLUSH SCH (15:56)
== END 2017-10-26 16:07 | disposition hospice, inpatient (51) | DRG 180 ==
LOC: NEPE 19:12 → NEDA 10-21 04:10 → NEDH 10-21 08:28 → HCIN 10-22 12:57
PROVIDERS: ADMIT Internal Medicine; ATTEND Internal Medicine
PROC: 0W993ZZ Drainage of Right Pleural Cavity, Percutaneous Approach (ICD-10-PCS; principal; 2017-10-23)
PROC: 0W9930Z Drainage of Right Pleural Cavity with Drainage Device, Percutaneous Approach (ICD-10-PCS; 2017-10-23)
PROC: 0W9930Z Drainage of Right Pleural Cavity with Drainage Device, Percutaneous Approach (ICD-10-PCS; 2017-10-26)
DX: C34.01 Malignant neoplasm of right main bronchus (principal); A41.9 Sepsis, unspecified organism; R64 Cachexia; C78.7 Secondary malignant neoplasm of liver and intrahepatic bile duct; J18.9 Pneumonia, unspecified organism; E87.2 Acidosis; J90 Pleural effusion, not elsewhere classified; C77.1 Secondary and unspecified malignant neoplasm of intrathoracic lymph nodes; C78.89 Secondary malignant neoplasm of other digestive organs; C79.72 Secondary malignant neoplasm of left adrenal gland; C79.71 Secondary malignant neoplasm of right adrenal gland; C79.31 Secondary malignant neoplasm of brain; J95.811 Postprocedural pneumothorax; I10 Essential (primary) hypertension; I71.4 Abdominal aortic aneurysm, without rupture; F10.10 Alcohol abuse, uncomplicated; E89.0 Postprocedural hypothyroidism; M81.0 Age-related osteoporosis without current pathological fracture; E86.0 Dehydration; F17.210 Nicotine dependence, cigarettes, uncomplicated; Z51.5 Encounter for palliative care; Z66 Do not resuscitate; Z80.7 Family history of other malignant neoplasms of lymphoid, hematopoietic and related tissues; Z85.850 Personal history of malignant neoplasm of thyroid
CPT/HCPCS: 32550; 32555; 32557; 70553; 71045; 71275; 74177; 75989; 76937; 80053; 81001; 82308; 82378; 82550; 83036; 83605; 83690; 83735; 84100; 84439; 84443; 85025; 85610; 85730; 87040; 87804; 88112; 88305; 89051; 93005; 94640; 94664; 96361; 96365; 96375; 99152; 99153; 99211; A9579; C1729; C1769; G0463; J0456; J0696; J2250; J3010; J3480; J7030; J7050; Q9967